=== PATIENT | female | born 1990 | race Caucasian/White ===

== ENCOUNTER 2020-03-07 15:59 | Outpatient (REF) | payer OTHER, SELFPAY | END 2020-03-07 16:00 | disposition home or self-care (01) | LOC: HO.LAB 15:59 | PROVIDERS: Visit Provider Internal Medicine | DX: Z20.828 Contact with and (suspected) exposure to other viral communicable diseases (principal) | CPT/HCPCS: C9803; U0003 ==

== ENCOUNTER 2020-04-23 13:20 | Emergency (ER) | payer OTHER, SELFPAY ==
--- NOTE | ~2020-04-23 | XR_ITS ---
EXAMINATION: XR WRIST SCAPHOID, LEFT CLINICAL INFORMATION: Fall, trauma, pain COMPARISON: Radiographs left forearm 08/08/2019 TECHNIQUE: Left wrist is imaged in 4 views, including a navicular view. FINDINGS: The lateral view demonstrates a triangular opacification 2 x 3 mm in size suspicious for a dorsal carpal avulsion fracture. The other views show no fracture or dislocation. The ulnar variance is neutral. The bony mineralization is normal. XR/XR wrist LT w scaphoid IMPRESSION: Suspect dorsal carpal avulsion fracture, 2 x 3 mm fragment suggested on lateral view dorsal wrist.
[2020-04-23 13:38] VITALS: BP 115/74; PULSE 91; RESP 14; TEMP 37.6; O2SAT 96; BMI 18.4
--- NOTE | 2020-04-23 13:55 | ED.EXTPRO ---
HPI - Extremity Problem General Chief complaint: Extremity Injury, Upper Stated complaint: FALL L WRIST INJ Time Seen by Provider: 04/23/20 13:44 Source: patient Mode of arrival: ambulatory Limitations: no limitations History of Present Illness HPI Narrative: 30 y/o female presenting with left wrist pain after she slipped and fell on wet floor while at work. She states she fell backwards and caught herself with her left hand. She had immediate pain. She reports feeling a crunching when she moves her wrist. She denies numbness or tingling. No other injuries. She did not hit her head or lose consciousness. MD Complaint: joint paint Onset (ago): hour(s) (1) Pain Consistency: constant Location: left and upper extremity Severity scale (1-10): 8 Quality: sharp Radiation: distal (to pinky finger) Relieving factors: immobilization and elevation Exacerbating factors: range of motion and palpation Associated symptoms: denies other symptoms Related Data Previous Rx's Medication Instructions Recorded ibuprofen 600 mg PO Q8H PRN #20 tab 04/23/20 Allergies Allergy/AdvReac Type Severity Reaction Status Date / Time No Known Allergies Allergy Unverified 11/30/19 18:32 [No Known Allergies*] Review of Systems Review of Systems: Constitutional: No Fever, No Chills Cardiovascular: No Chest Pain, No SOB Respiratory: No Cough, No Sputum Gastrointestinal: No Nausea, No Vomiting, No Diarrhea, No abdominal Pain Musculoskeletal: + joint pain, + Myalgias Skin: No Skin Lesions, No rash Neuro: No Weakness, No Numbness, No Dizziness, No Headache Heme/Lymph: No Bruising PMFSH Past Medical History Attestation statement: The following information was validated with the patient. Medical History Hepatitis C Social History Social History Smoking Status: Current every day smoker Smoked in Last 30 Days: Yes Use of substances other than those prescribed or required for medical reasons: Yes Substance Use Type: Marijuana Substance Use Type Other:: methadone Any prior treatment program specific to substance use: Yes (methadone) Advance Directives: No Advance Directives Information Provided: No Physical Exam Vital Signs: Vital Signs: Last Vital Signs Temp 99.7 F 04/23/20 13:38 Pulse 91 04/23/20 13:38 Resp 14 04/23/20 13:38 BP 115/74 02/09/21 13:38 Pulse Ox 96 04/23/20 13:38 Body Mass Index 18.4 Appearance: Alert. Oriented X3. No acute distress. HEENT: normal inspection CVS: Normal heart rate and rhythm. Pulses normal. Respiratory: No respiratory distress. Skin: Skin warm and dry. Normal skin color. Normal skin turgor. No rashes. Extremities: left wrist with normal inspection. lateral left wrist tenderness, distal ulnar tenderness. no palpable crepitus. NV intact distall. 2+ radial pulse. limited flexion of wrist due to pain. normal left elbow ROM. Neuro: Oriented X 3. No motor deficit. No sensory deficit. Course Course Course Narrative: 30 y/o female presenting with left wrist pain s/p fall. No obvious deformity on exam. Will get XR to further assess. Reevaluation(s) Reevaluation #1: XR showing tiny avulion fx of carpal bone - consistent with hector. Will place in velro splint and refer to ortho. patient is stable for discharge. Discharge Plan Discharge Clinical Impression: Sprain and strain of wrist, Avulsion fracture of bone Patient Disposition: Home, Self-Care Instructions: Wrist Sprain (ED) Additional Instructions: X-ray today showed a small (2mm) piece of bone in your wrist has broken off. This is due to a sprain in your wrist. Recommend wearing the wrist splint for comfort and support - anticipate 2 weeks. Take the prescribed anti-inflammatory medication as directed. Use ice and elevate several times per day. Follow up with the Orthopedic doctor. Prescriptions: New ibuprofen 600 mg tablet 600 mg PO Q8H PRN (Reason: pain) Qty: 20 RF: 0 Referrals: [facility] [Provider Group] - 2 days Dave Moseley MD [Physician] - 1 week (carpal avulsion fx, wrist sprain) Stand Alone Forms: Work/School Release Interventions: ED Discharge Assessment Last Done: 04/23/20 14:39 Discharge Date/Time: 04/23/20 14:40
== END 2020-04-23 14:40 | disposition home or self-care (01) ==
PROVIDERS: Emergency Provider Emergency Medicine Emergency Medical Services; PCP Internal Medicine
DX: S62.102A Fracture of unspecified carpal bone, left wrist, initial encounter for closed fracture (principal); S63.502A Unspecified sprain of left wrist, initial encounter; M25.532 Pain in left wrist; F17.200 Nicotine dependence, unspecified, uncomplicated; F12.90 Cannabis use, unspecified, uncomplicated; Z71.6 Tobacco abuse counseling; W01.0XXA Fall on same level from slipping, tripping and stumbling without subsequent striking against object, initial encounter; Y93.9 Activity, unspecified; Y92.9 Unspecified place or not applicable; Y99.0 Civilian activity done for income or pay
CPT/HCPCS: 29125; 73110; 99283

== ENCOUNTER 2020-12-22 19:33 | Emergency (ER) | payer OTHER, SELFPAY ==
[2020-12-22 19:37] VITALS: BP 116/82; PULSE 96; RESP 16; TEMP 36.7; O2SAT 96; BMI 23.4
[2020-12-22 20:22] LABS: Appearance Urine HAZY; Color Urine DK YELLOW; Glucose Urine UA NEG (NEG); Leukocyte Esterase Urine 1+ (NEG); Nitrite Urine POS (NEG); PH 5.5 (5.0-8.0); Specific Gravity - Urine >= 1.030 (1.005-1.025); UACC Culture Trigger YES; Urine Blood NEG (NEG); Urine Ketones NEG (NEG); Urine Protein 1+ MG/DL (NEG-TRACE)
[2020-12-22 20:24] LABS: UPreg QC Valid YES; Urine Pregnancy NEGATIVE (NEGATIVE)
[2020-12-22 20:29] LABS: Bacteria Urine 4+ /LPF; Squamous Epithelial Cell Urine 3+ /LPF
[2020-12-22 20:31] LABS: RBC Urine 0-2 /HPF (0)
[2020-12-22] MEDS: cefTRIAXone sodium 500 MG, Lidocaine HCl 1 % MPF 1 ML IM (22:29)
[2020-12-22] MEDS: Azithromycin 500 MG TABLET 1000 MG PO (22:29)
[2020-12-22] MEDS: levoFLOXacin 250 MG TABLET PO (22:30)
--- NOTE | 2020-12-22 23:31 | ED.GENADULT ---
HPI - General Adult General Chief complaint: Skin/Abscess/Foreign Body Stated complaint: ?Skin infection Time Seen by Provider: 12/22/20 20:17 Source: patient Mode of arrival: ambulatory Limitations: no limitations History of Present Illness HPI narrative: 30-year-old female with a history of IV drug use presents for small lesions to her face. Patient also endorses dysuria with back pain. Patient has had 2 weeks of dysuria with right-sided back pain and nausea. No vomiting, no fevers. Patient also says she wakes up with her eyes crusted shut and her eyes are itchy and this is been going on for 10 days. In addition, patient has had small yellow crusted lesions on her nose in her years. In addition, patient has vaginal discharge that is smelly and itchy. Related Data Previous Rx's Medication Instructions Recorded ibuprofen 600 mg tablet 600 mg PO Q8H PRN #20 tab 04/23/20 erythromycin 5 mg/gram (0.5 %) eye 1 appl OPHTHALMIC (EYE) DAILY 5 12/22/20 ointment Days #3.5 g levofloxacin 250 mg tablet 250 mg PO DAILY 3 Days #3 tab 12/22/20 metronidazole 500 mg tablet 500 mg PO BID 7 Days #14 tab 12/22/20 mupirocin 2 % topical ointment 1 appl TOPICAL BID #22 g 12/22/20 Allergies Allergy/AdvReac Type Severity Reaction Status Date / Time No Known Allergies Allergy Unverified 11/30/19 18:32 [No Known Allergies*] Review of Systems Constitutional: Constitutional: Denies body ache(s), Denies chills, Denies fatigue, Denies fever(s), Denies headache(s), Denies malaise and Denies weakness Eyes: Eyes: Denies blurry vision, Denies diplopia, Reports irritation and Reports itchy eyes ENT: Denies vertigo, Denies dizziness, Denies otalgia, Denies headache(s), Denies mouth pain, Denies post nasal drip, Denies sinus pain, Denies sinus pressure, Denies sore throat and Denies throat swelling Cardiovascular: Cardiovascular: Denies chest pain, Denies syncope, Denies leg edema, Denies lightheadedness, Denies Loss of Consciousness, Denies palpitations and Denies dyspnea Respiratory: Respiratory: Denies chest congestion, Denies cough and Denies dyspnea Gastrointestinal: Gastrointestinal: Denies abdominal pain, Denies hematochezia, Denies constipation, Denies diarrhea, Reports nausea and Denies vomiting Genitourinary: Genitourinary: Denies abnormal vaginal bleeding, Denies hematuria, Reports dysuria, Denies pelvic pain, Reports urinary urgency, Reports vaginal discharge, Reports vaginal odor and Reports vaginal pruritus Musculoskeletal: Musculoskeletal: Reports no additional musculoskeletal complaints Integumentary/Breasts: Skin/Breast: Reports lesions and Reports rash Neurologic: Denies confusion, Denies vertigo, Denies dizziness, Denies syncope, Denies headache(s) and Denies weakness Psychiatric: Psychiatric: Reports anxiety, Denies confusion and Denies depression Endocrine: Endocrine: Denies fatigue and Denies palpitations Allergic/Immunologic: Allergic/Immunologic: Reports itchy eyes and Denies throat swelling PMFSH Past Medical History Medical History Hepatitis C Scoliosis Social History Social History Substance Use Type: Marijuana Advance Directives: No Advance Directives Information Provided: No Physical Exam Vital Signs: Vital Signs: Last Vital Signs Temp 98.0 F 12/22/20 19:37 Pulse 96 12/22/20 19:37 Resp 16 12/22/20 19:37 BP 116/82 12/22/20 19:37 Pulse Ox 96 12/22/20 19:37 Body Mass Index 23.4 Const: General: alert, awake and poor hygiene; No confusion Nutritional Appearance: thin Orientation/consciousness: patient oriented x3 and No confusion Limitations: no limitations HENMT: Head: Yes normal to inspection, Yes normocephalic and Yes atraumatic Ears: hearing grossly normal bilaterally, external ears normal, TM's normal bilaterally and EAC's normal General nose exam: Normal external nose present Face and sinus: Yes normal facial exam and Yes sinuses nontender Mouth: Normal oral and palatal mucosa present Throat: Yes posterior oropharynx normal Eyes: Conjunctivae: conjunctival abnormal bilateral conjunctival injection and diffuse Pupils: Equal, round and reactive pupils present EOM: EOMs intact bilaterally Neck: Neck: Yes full ROM, Yes no lymphadenopathy and Yes supple Resp: Effort & Inspection: normal respiratory effort and able to speak in complete sentences Auscultation: clear to auscultation bilaterally, no crackles, no rales, no rhonchi and no wheezes Cardio: Rate: regular rate Rhythm: regular rhythm Heart sounds: S1 normal heart sound present and S2 normal heart sound present GI: Inspection: Yes normal to inspection Palpation (GI): Soft to palpation, Tenderness to palpation present (GI) other (suprapubic), no guarding and not rigid Percussion: Yes normal to percussion Auscultation: normal bowel sounds : Speculum Exam - Vagina: No vaginal bleeding Speculum Exam - Cervix: Abnormal cervical discharge present yellow and malodorous OB/external & speculum: No vaginal bleeding Skin: General skin exam: crusts Neuro: General: patient oriented x3 and No confusion Cranial nerves: Yes Equal, round and reactive pupils present Extrem: General: Yes normal to inspection and Yes full ROM Psych: Appearance: grossly normal Affect: normal affect Attitude: cooperative Thought process: Normal thought process present Course Course Course Narrative: 22-year-old female with multiple complaints is found to have impetigo on her face, conjunctivitis in her eyes, UTI, and has malodorous yellow esquivel vaginal discharge. Patient tested negative for Trichomonas and yeast. Will treat UTI and will treat for bacterial vaginosis with Flagyl, as this is the clinical diagnosis. Give ceftriaxone and 1 g of azithromycin here for gonorrhea and chlamydia. Did not prescribe doxycycline due to concern of patient being noncompliant. Mupirocin for impetigo on her face, erythromycin ointment for conjunctivitis. Medical Decision Making Lab Data Labs: Lab Results 12/22/20 12/22/20 Range/Units 20:16 20:16 Urine Color DK YELLOW Urine Appearance HAZY Urine pH 5.5 (5.0-8.0) Ur Specific [place] >= 1.030 H (1.005-1.025) Urine Protein 1+ H (NEG-TRACE) MG/DL Urine Glucose (UA) NEG (NEG) MG/DL Urine Ketones NEG (NEG) MG/DL Urine Blood NEG (NEG) Urine Nitrite POS H (NEG) Ur Leukocyte Esterase 1+ H (NEG) Urine RBC 0-2 (0) /HPF Urine WBC 10-14 H (0-4) /HPF Ur Squamous Epith Cells 3+ /LPF Urine Bacteria 4+ /LPF Urine Test NEGATIVE (NEGATIVE) Discharge Plan Discharge Clinical Impression: Impetigo, Bacterial vaginitis UTI (urinary tract infection) Qualifiers: Urinary tract infection type: acute cystitis Hematuria presence: without hematuria Qualified Code(s): N30.00 - Acute cystitis without hematuria Conjunctivitis Qualifiers: Conjunctivitis type: acute Acute conjunctivitis type: bacterial Laterality: bilateral Qualified Code(s): H10.33 - Unspecified acute conjunctivitis, bilateral Patient Disposition: Home, Self-Care Instructions: Bacterial Vaginosis (ED), Urinary Tract Infection in Women (ED), Impetigo (ED), Conjunctivitis (ED) Additional Instructions: Fill the prescription for levofloxacin and metronidazole at your pharmacy tomorrow. You had 1 dose of levofloxacin today. That medicine is for urinary tract infection. I am also sending a prescription for metronidazole because I suspect you have bacterial vaginosis. This will also treat Trichomonas. Please take this for 7 days. You have been treated here for gonorrhea and chlamydia and do not need any more treatment for that. We will call you with results if they are positive. If you do not hear from us in 3 days he may call the hospital. Please use the mupirocin on your face. You may also take a little bit and put it up your nose. Please use the erythromycin ointment in your eyes. Call your primary care provider for follow-up appointment. Prescriptions: New erythromycin 5 mg/gram (0.5 %) ointment 1 appl ophthalmic (eye) DAILY 5 Days Qty: 3.5 RF: 0 metronidazole 500 mg tablet 500 mg PO BID 7 Days Qty: 14 RF: 0 levofloxacin 250 mg tablet 250 mg PO DAILY 3 Days Qty: 3 RF: 0 mupirocin 2 % ointment 1 appl topical BID Qty: 22 RF: 0 No Action ibuprofen 600 mg tablet 600 mg PO Q8H PRN (Reason: pain) Qty: 20 RF: 0
[2020-12-23 00:44] LABS: CT PCR NOT DETECTED (Not Detect.); NG PCR NOT DETECTED (Not Detect.)
[2020-12-23 12:30] LABS: BV Int Neg Control Negative (Negative); BV Int Pos Control Positive (Positive)
== END 2020-12-22 23:32 | disposition home or self-care (01) ==
PROVIDERS: Physician Assistant; Emergency Provider Internal Medicine; PCP Internal Medicine
DX: N30.00 Acute cystitis without hematuria (principal); N76.0 Acute vaginitis; B96.89 Other specified bacterial agents as the cause of diseases classified elsewhere; L01.00 Impetigo, unspecified; H10.33 Unspecified acute conjunctivitis, bilateral
CPT/HCPCS: 81001; 81025; 87086; 87088; 87186; 87480; 87491; 87510; 87591; 87660; 96372; 99283; J0696

== ENCOUNTER 2021-09-01 11:06 | Outpatient (REF) | payer OTHER, SELFPAY ==
[2021-09-01 14:00] LABS: Hematocrit 40.4 % (37.0-47.0); Mean Corpuscular HGB Conc 32.2 g/dl (31.0-35.0); Mean Corpuscular Hemoglobin 28.9 pg (27.0-33.0); Mean Corpuscular Volume 89.8 fL (80.0-98.0); Mean Platelet Volume 10.3 fL (9.4-12.3); Platelet Count 149 X10*3/uL (160-400); White Blood Count 5.2 X10*3/uL (4.8-10.8)
[2021-09-01 14:21] LABS: Alanine Aminotransferase 51 U/L (0-31); Albumin Level 3.9 g/dL (3.5-5.0); Alkaline Phosphatase 140 U/L (39-117); Anion Gap 14 (12-20); Aspartate Amino Transferase 79 U/L (5-31); Bilirubin Direct 0.3 mg/dL (0.0-0.5); Bilirubin Total 0.6 mg/dL (0.0-1.0); Blood Urea Nitrogen 8 mg/dL (9-16); Calcium 9.4 mg/dL (8.4-10.2); Carbon Dioxide 24 mmol/L (22-29); Chloride 104 mmol/L (96-108); Estimated Glomerular Filt Rate > 60; Glucose Random 92 mg/dL (60-115); Potassium 4.4 mmol/L (3.3-5.1); Sodium 138 mmol/L (135-145); Total Protein 10.1 g/dL (6.5-8.0)
[2021-09-02 04:44] LABS: HIV AB/AG Nonreactive (Nonreactive); HIV Num 1 0.07 S/CO (0.00-0.99)
== END 2021-09-01 11:07 | disposition home or self-care (01) ==
LOC: HO.HMGCLDS 11:06
PROVIDERS: Visit Provider Internal Medicine
DX: Z11.4 Encounter for screening for human immunodeficiency virus [HIV] (principal); B25.9 Cytomegaloviral disease, unspecified; G43.909 Migraine, unspecified, not intractable, without status migrainosus
CPT/HCPCS: 36415; 80048; 80076; 85027; 87389

== ENCOUNTER 2022-04-11 11:05 | Emergency (ER) | payer OTHER, SELFPAY ==
[2022-04-11 11:19] VITALS: BP 182/98; PULSE 99; RESP 20; TEMP 36.3; O2SAT 100; BMI 18.2
--- NOTE | 2022-04-11 11:19 | ED.GENADULT ---
HPI - General Adult General Chief complaint: Skin/Abscess/Foreign Body <LUIS Pereira - Last Filed: 04/11/22 11:23> Stated complaint: infection in L hand <LUIS Pereira - Last Filed: 04/11/22 11:23> Time Seen by Provider: 04/11/22 12:09 <LUIS Pereira - Last Filed: 04/11/22 11:23> Source: patient <Heavenly Roa BECKY Machuca - Last Filed: 04/11/22 13:40> Mode of arrival: ambulatory <Heavenly Machuca CNP - Last Filed: 04/11/22 13:40> Limitations: no limitations <Heavenly Machuca CNP - Last Filed: 04/11/22 13:40> History of Present Illness HPI narrative: Patient is a 32-year-old female who presents emergency department for evaluation of left hand/wrist pain, redness, swelling. She states that she noticed the redness developed yesterday. She does report injecting IV heroin into this area. She is currently on methadone, she is not interested in detox at this time. Denies fevers, chills, wrist stiffness, decreased range of motion, chest pain, shortness of breath, difficulty breathing. Denies history of MRSA infection. <Heavenly Machuca CNP - Last Filed: 04/11/22 13:40> Related Data Home medications: Previous Rx's Medication Instructions Recorded ibuprofen 600 mg tablet 600 mg PO Q8H PRN pain #20 tabs 04/23/20 erythromycin 5 mg/gram (0.5 %) eye 1 appl ophthalmic (eye) DAILY 5 12/22/20 ointment days #3.5 grams levofloxacin 250 mg tablet 250 mg PO DAILY 3 days #3 tabs 12/22/20 metronidazole 500 mg tablet 500 mg PO BID 7 days #14 tabs 12/22/20 mupirocin 2 % topical ointment 1 appl topical BID #22 grams 12/22/20 meloxicam 15 mg tablet 15 mg PO DAILY #14 tabs 09/01/21 cephalexin 500 mg capsule 500 mg PO QID 7 days #28 caps 04/11/22 doxycycline hyclate 100 mg tablet 100 mg PO BID 7 days #14 tabs 04/11/22 <LUIS Pereira - Last Filed: 04/11/22 11:23> Allergies/adverse reactions: Allergies Allergy/AdvReac Type Severity Reaction Status Date / Time No Known Allergies Allergy Verified 09/01/21 10:43 [No Known Allergies*] <LUIS Pereira - Last Filed: 04/11/22 11:23> Review of Systems Review of Systems: Skin: As noted in HPI <Heavenly Machuca CNP - Last Filed: 04/11/22 13:40> Yes all other systems are reviewed and are negative <Heavenly Machuca CNP - Last Filed: 04/11/22 13:40> PMFSH Past Medical History Attestation statement: The following information was validated with the patient. <Heavenly Machuca CNP - Last Filed: 04/11/22 13:40> Source: old records reviewed <Heavenly Machuca CNP - Last Filed: 04/11/22 13:40> Medical History: Medical History Hepatitis C Scoliosis <LUIS Pereira - Last Filed: 04/11/22 11:23> Social History Social History: Social History Patient Tobacco Use Status: Current everyday Tobacco user Substance Use Type: Marijuana Advance Directives: No <LUIS Pereira - Last Filed: 04/11/22 11:23> Physical Exam ED Vital Signs: Vital Signs - 24 hr 04/11/22 11:19 04/11/22 13:23 Temperature 97.3 F 97.9 F Pulse Rate 99 89 Respiratory Rate 20 16 Blood Pressure 182/98 H 147/83 H Pulse Oximetry 100 99 Oxygen Delivery Method Room Air Room Air BMI result Body Mass Index 18.2 <LUIS Pereira - Last Filed: 04/11/22 11:23> Vital Signs - 24 hr 04/11/22 11:19 04/11/22 13:23 Temperature 97.3 F 97.9 F Pulse Rate 99 89 Respiratory Rate 20 16 Blood Pressure 182/98 H 147/83 H Pulse Oximetry 100 99 Oxygen Delivery Method Room Air Room Air BMI result Body Mass Index 18.2 <Heavenly Machuca CNP - Last Filed: 04/11/22 13:40> Appearance: Alert.?Oriented to person, place and time. No acute distress.?Normal affect. Eyes: Pupils equal, round and reactive to light.? ENT: Pharynx normal.?? Neck: Normal inspection.? Neck supple.?? CVS: Heart sounds normal. Normal heart rate and rhythm.? Pulses normal.?? Respiratory: No respiratory distress.? Lung sounds clear to auscultation bilaterally?? Abdomen: Soft and non-tender. Skin: Skin warm and dry.? Normal skin color.? Left dorsal hand/wrist with reported injection sites surrounding erythema, localized swelling, no warmth. Full AROM to digits and left wrist. Palpable 2+ radial pulse bilaterally. Extremities: No lower extremity edema.? Neuro: Moves all extremities spontaneously. Sensation intact bilaterally. Ambulates with normal steady gait. <Heavenly Machuca CNP - Last Filed: 04/11/22 13:40> Course Course Course Narrative: RME performed by Laurence Ly PA-C. Patient is a 32 year old female presenting to the emergency department with an infection to the left hand. Patient has a history of IV drug use. Patient states that she last used a week ago and is currently on methadone. Patient states that she also got scratched by a cat on the left hand. Patient states that the cat is up to date on all shots. Labs ordered. Patient placed back in the waiting room pending results and room availability. <LUIS Pereira - Last Filed: 04/11/22 11:23> Medical Decision Making Medical Decision Making MDM Narrative: Patient is a 32-year-old female who presents emergency department for evaluation of pain in the erythema to the dorsal left wrist/hand. Recently injected IV heroin into this area. Reports a history of cellulitis in the past which has presented similarly. Denies any history of MRSA infection. Overall she is well-appearing, nontoxic, afebrile. Full range of motion is present to the wrist/digits, low suspicion for septic arthritis at this time. Clinically no abscess present. Reviewed labs obtained from RME, no leukocytosis, CMP overall unremarkable, mildly elevated inflammatory markers. At this time discussed plan of care for discharge home, treatment with oral antibiotics for cellulitis. Provided with strict return precautions, reviewed worrisome signs symptoms that warrant tucker. Patient to follow-up with primary care provider. All questions answered. Stable for discharge. <Heavenly Roa BECKY Machuca - Last Filed: 04/11/22 13:40> Differential Diagnosis Differential Diagnoses: The differential diagnosis associated with the presentation includes (As noted above) <Heavenly PaulBECKY hunter - Last Filed: 04/11/22 13:40> Lab Data MDM Lab Attestation statement: I reviewed the patient's lab results. <Heavenlylinda Machuca CNP - Last Filed: 04/11/22 13:40> Result Diagrams: 04/11/22 11:35 04/11/22 11:35 <LUIS Pereira - Last Filed: 04/11/22 11:23> Labs: Lab Results 04/11/22 04/11/22 04/11/22 Range/Units 11:35 11:35 11:35 WBC 6.4 (4.8-10.8) X10*3/uL RBC 4.12 L (4.20-5.50) X10*6/uL Hgb 11.8 L (12.0-16.0) g/dl Hct 36.9 L (37.0-47.0) % MCV 89.6 (80.0-98.0) fL MCH 28.6 (27.0-33.0) pg MCHC 32.0 (31.0-35.0) g/dl RDW 13.9 (11.0-16.0) % Plt Count 234 D (160-400) X10*3/uL MPV 8.1 L (9.4-12.3) fL Immature Gran % (Auto) 0.2 (0.0-0.4) % Neut % (Auto) 38.4 L (45-73) % Lymph % (Auto) 52.2 H (20-40) % Evans % (Auto) 8.9 (2-11) % Eos % (Auto) 0.0 (0-4) % Baso % (Auto) 0.3 (0-2) % Lymph # (Auto) 3.3 (1.2-4.9) X10*3/uL Evans # (Auto) 0.6 (0.1-1.2) X10*3/uL Eos # (Auto) 0.0 (0.0-0.4) X10*3/uL Baso # (Auto) 0.0 (0.0-0.2) X10*3/uL Abs Immat Gran (auto) 0.01 (0.00-0.03) X10*3/uL Absolute Neuts (auto) 2.5 (2.0-8.3) x10*3/uL Absolute Nucleated RBC 0.000 (0.0-0.012) X10*3/uL Nucleated RBC % (auto) 0.0 (0.0-0.2) /100WBC ESR 60 H (0-20) MM/HR Sodium 137 (135-145) mmol/L Potassium 3.6 (3.3-5.1) mmol/L Chloride 101 (96-108) mmol/L Carbon Dioxide 24 (22-29) mmol/L Anion Gap 16 (12-20) BUN 8 L (9-16) mg/dL Creatinine 0.81 (0.5-1.4) mg/dL Estim Creat Clear Calc 87.2 Estimated GFR > 60 Random Glucose 103 (60-115) mg/dL Calcium 9.3 (8.4-10.2) mg/dL Magnesium 2.0 (1.6-2.6) mg/dL Total Bilirubin 0.3 (0.0-1.0) mg/dL AST 100 H (5-31) U/L ALT 77 H (0-31) U/L Alkaline Phosphatase 136 H (39-117) U/L C-Reactive Protein 0.70 H (< or = 0.50) mg/dL Total Protein 9.1 H (6.5-8.0) g/dL Albumin 4.0 (3.5-5.0) g/dL <LUIS Pereira - Last Filed: 04/11/22 11:23> Lab Results 04/11/22 04/11/22 04/11/22 Range/Units 11:35 11:35 11:35 WBC 6.4 (4.8-10.8) X10*3/uL RBC 4.12 L (4.20-5.50) X10*6/uL Hgb 11.8 L (12.0-16.0) g/dl Hct 36.9 L (37.0-47.0) % MCV 89.6 (80.0-98.0) fL MCH 28.6 (27.0-33.0) pg MCHC 32.0 (31.0-35.0) g/dl RDW 13.9 (11.0-16.0) % Plt Count 234 D (160-400) X10*3/uL MPV 8.1 L (9.4-12.3) fL Immature Gran % (Auto) 0.2 (0.0-0.4) % Neut % (Auto) 38.4 L (45-73) % Lymph % (Auto) 52.2 H (20-40) % Evans % (Auto) 8.9 (2-11) % Eos % (Auto) 0.0 (0-4) % Baso % (Auto) 0.3 (0-2) % Lymph # (Auto) 3.3 (1.2-4.9) X10*3/uL Evans # (Auto) 0.6 (0.1-1.2) X10*3/uL Eos # (Auto) 0.0 (0.0-0.4) X10*3/uL Baso # (Auto) 0.0 (0.0-0.2) X10*3/uL Abs Immat Gran (auto) 0.01 (0.00-0.03) X10*3/uL Absolute Neuts (auto) 2.5 (2.0-8.3) x10*3/uL Absolute Nucleated RBC 0.000 (0.0-0.012) X10*3/uL Nucleated RBC % (auto) 0.0 (0.0-0.2) /100WBC ESR 60 H (0-20) MM/HR Sodium 137 (135-145) mmol/L Potassium 3.6 (3.3-5.1) mmol/L Chloride 101 (96-108) mmol/L Carbon Dioxide 24 (22-29) mmol/L Anion Gap 16 (12-20) BUN 8 L (9-16) mg/dL Creatinine 0.81 (0.5-1.4) mg/dL Estim Creat Clear Calc 87.2 Estimated GFR > 60 Random Glucose 103 (60-115) mg/dL Calcium 9.3 (8.4-10.2) mg/dL Magnesium 2.0 (1.6-2.6) mg/dL Total Bilirubin 0.3 (0.0-1.0) mg/dL AST 100 H (5-31) U/L ALT 77 H (0-31) U/L Alkaline Phosphatase 136 H (39-117) U/L C-Reactive Protein 0.70 H (< or = 0.50) mg/dL Total Protein 9.1 H (6.5-8.0) g/dL Albumin 4.0 (3.5-5.0) g/dL <Heavenly Machuca CNP - Last Filed: 04/11/22 13:40> Prescription Management I considered prescription management with: Pain Medication and Antibiotic <Heavenly Machuca CNP - Last Filed: 04/11/22 13:40> Discharge Plan Discharge Clinical Impression: Cellulitis <LUIS Pereira - Last Filed: 04/11/22 11:23> Patient Disposition: Home, Self-Care <LUIS Pereira - Last Filed: 04/11/22 11:23> Instructions: Cellulitis (ED) <LUIS Pereira - Last Filed: 04/11/22 11:23> Additional Instructions: Please complete the entire course of antibiotics sent to your pharmacy. You can take ibuprofen 200 mg, 3 tablets (600mg) every 6-8 hours as needed for pain, in addition to Tylenol 500 mg, 2 tablets (1,000mg) every 4-6 hours as needed for pain, but not to exceed 3 doses daily (3,000mg).? As we discussed, if you develop worsening redness, swelling, pain, fevers, chills, inability to move the hand/wrist despite being on the antibiotics this should be re-evaluated. If you develop chest pain, shortness of breath, difficulty breathing, confusion, you should be evaluated in the emergency department Follow-up with your primary care provider <LUIS Pereira - Last Filed: 04/11/22 11:23> Prescriptions: New cephalexin 500 mg capsule 500 mg PO QID 7 Days Qty: 28 0RF doxycycline hyclate 100 mg tablet 100 mg PO BID 7 Days Qty: 14 0RF No Action ibuprofen 600 mg tablet 600 mg PO Q8H PRN (Reason: pain) Qty: 20 0RF erythromycin 5 mg/gram (0.5 %) ointment 1 appl ophthalmic (eye) DAILY 5 Days Qty: 3.5 0RF Rx Instructions: Apply 1/2 inch strip to both eyes 4 times a day for 5 days metronidazole 500 mg tablet 500 mg PO BID 7 Days Qty: 14 0RF levofloxacin 250 mg tablet 250 mg PO DAILY 3 Days Qty: 3 0RF mupirocin 2 % ointment 1 appl topical BID Qty: 22 0RF meloxicam 15 mg tablet 15 mg PO DAILY Qty: 14 0RF <LUIS Pereira - Last Filed: 04/11/22 11:23> Referrals: Physician,Unknown J [Primary Care Provider] - <LUIS Pereira - Last Filed: 04/11/22 11:23>
[2022-04-11 11:39] LABS: MANUAL DIFF FLAG NO
[2022-04-11 11:45] LABS: Basophils Percent Auto 0.3 % (0-2); Hematocrit 36.9 % (37.0-47.0); Hemoglobin 11.8 g/dl (12.0-16.0); Imm Gran Abs Auto 0.01 X10*3/uL (0.00-0.03); Imm Gran Pct Auto 0.2 % (0.0-0.4); Lymphocytes Absolute Auto 3.3 X10*3/uL (1.2-4.9); Lymphocytes Percent Auto 52.2 % (20-40); Mean Corpuscular Hemoglobin 28.6 pg (27.0-33.0); Mean Corpuscular Volume 89.6 fL (80.0-98.0); Mean Platelet Volume 8.1 fL (9.4-12.3); Monocytes Absolute Auto 0.6 X10*3/uL (0.1-1.2); Monocytes Percent Auto 8.9 % (2-11); Neutrophils Absolute Auto 2.5 x10*3/uL (2.0-8.3); Neutrophils Percent Auto 38.4 % (45-73); Platelet Count 234 X10*3/uL (160-400); Red Blood Count 4.12 X10*6/uL (4.20-5.50); Red Cell Distribution Width 13.9 % (11.0-16.0); White Blood Count 6.4 X10*3/uL (4.8-10.8)
[2022-04-11 12:26] LABS: Erythrocyte Sedimentation Rate 60 MM/HR (0-20)
[2022-04-11 12:52] LABS: Alanine Aminotransferase 77 U/L (0-31); Alkaline Phosphatase 136 U/L (39-117); Anion Gap 16 (12-20); Aspartate Amino Transferase 100 U/L (5-31); Bilirubin Total 0.3 mg/dL (0.0-1.0); Blood Urea Nitrogen 8 mg/dL (9-16); Calcium 9.3 mg/dL (8.4-10.2); Carbon Dioxide 24 mmol/L (22-29); Chloride 101 mmol/L (96-108); Creatinine Clr Calc Pharmacy 87.2; Estimated Glomerular Filt Rate > 60; Glucose Random 103 mg/dL (60-115); Potassium 3.6 mmol/L (3.3-5.1); Sodium 137 mmol/L (135-145); Total Protein 9.1 g/dL (6.5-8.0)
[2022-04-11 13:23] VITALS: BP 147/83; PULSE 89; RESP 16; TEMP 36.6; O2SAT 99
== END 2022-04-11 13:48 | disposition home or self-care (01) ==
PROVIDERS: Physician Assistant Medical; Emergency Provider Emergency Medicine
DX: L03.114 Cellulitis of left upper limb (principal); F11.20 Opioid dependence, uncomplicated
CPT/HCPCS: 36415; 80053; 83735; 85025; 85652; 86140; 99282; 99283

== ENCOUNTER 2023-01-04 03:22 | Emergency (ER) | payer OTHER, SELFPAY ==
--- NOTE | ~2023-01-04 | CT_ITS ---
CT LUMBAR SPINE WITH IV CONTRAST CLINICAL INFORMATION: R/O lumbar spine abscess, IVDU COMPARISON: None available. TECHNIQUE: Multidetector CT acquisition of the lumbar spine obtained following the administration of 85 mL of Omnipaque 350 intravenous contrast without complication. This CT examination was performed using dose optimization techniques as appropriate, variously including the following: *Automated exposure control *Adjustment of mA and/or kV according to patient size (this includes techniques or standardized protocols for targeted exams where dose is matched to indication/reason for exam; i.e. extremities or head) *Use of iterative reconstruction technique FINDINGS: Lumbar alignment is normal. The vertebral body heights are maintained. The disc volumes are preserved. There are no bony erosions. No peripherally enhancing fluid collections. No definite epidural collections within the lumbar spine. No significant lumbar disc herniations. No appreciable central canal stenosis nor foraminal stenosis within the lumbar spine. Partially imaged intra-abdominal ascites. CT/CT lumbar spine w IV con IMPRESSION: - No CT evidence of spinal infection. No definite epidural collections. MRI would be much more sensitive in assessment if not contraindicated. - Partially imaged intra-abdominal ascites.
--- NOTE | ~2023-01-04 | XR_ITS ---
EXAMINATION: XR CHEST CLINICAL INFORMATION: Fever COMPARISON: None available. TECHNIQUE: AP upright portable view of the chest was obtained. 8:30 AM FINDINGS: The lungs are well expanded. No focal consolidation, interstitial pulmonary edema or pneumothorax. No significant abnormality is noted involving the heart, mediastinum, bony thorax or soft tissues. XR/XR chest 1V IMPRESSION: No acute cardiopulmonary disease.
[2023-01-04 03:29] VITALS: BP 106/84; PULSE 114; RESP 16; TEMP 36.8; O2SAT 98; BMI 17.7
[2023-01-04 04:28] VITALS: BP 91/63; PULSE 102; RESP 22; TEMP 37.6; O2SAT 99
--- NOTE | 2023-01-04 04:41 | PC.NURSE ---
this rn assumed care of pt from waiting room at 0428. pt admits to using heroin ad cocaine prior to arrival. pt mother ad boyfriend at bedside. pt changed into hospital gown and belongings secured by security. pt belongings in per security. per security pt family members allowed to remain at bedside as pt chief complaint is backpain. cupola charger made aware
[2023-01-04 06:09] LABS: Hematocrit 30.1 % (37.0-47.0); Hemoglobin 10.1 g/dl (12.0-16.0); Imm Gran Abs Auto 0.01 X10*3/uL (0.00-0.03); Imm Gran Pct Auto 0.3 % (0.0-0.4); Lymphocytes Absolute Auto 0.4 X10*3/uL (1.2-4.9); MANUAL DIFF FLAG NO; Mean Corpuscular HGB Conc 33.6 g/dl (31.0-35.0); Mean Corpuscular Hemoglobin 29.5 pg (27.0-33.0); Mean Platelet Volume 8.2 fL (9.4-12.3); Monocytes Percent Auto 1.1 % (2-11); Neutrophils Absolute Auto 3.2 x10*3/uL (2.0-8.3); Neutrophils Percent Auto 86.6 % (45-73); Platelet Count 178 X10*3/uL (160-400); Red Blood Count 3.42 X10*6/uL (4.20-5.50); Red Cell Distribution Width 13.7 % (11.0-16.0); White Blood Count 3.7 X10*3/uL (4.8-10.8)
[2023-01-04] MEDS: 0.9 % Sodium Chloride 1,000 ML 999 ML IVCONT ×2 (06:09)
[2023-01-04] MEDS: Ketorolac Tromethamine 30 MG/ML VIAL IVPUSH (06:13)
[2023-01-04 06:15] LABS: INTERNATIONAL NORM RATIO 0.9 (0.9-1.1); Prothrombin Time 11.2 SEC (11.1-13.3)
[2023-01-04 06:18] LABS: Lactic Acid 1.8 mmol/L (0.5-2.0)
--- NOTE | 2023-01-04 06:30 | PC.NURSE ---
dr fairchild notified this rn pt needs to be moved to bed in main ed. this rn moved pt to ed bed 15. pt placed on cardiac and spo2 monitors. this rn, and three additional rn attempted blood draw and iv placement. 20g iv placed in r hand. pt tearful. family at bedside. blood work sent down to lab. unable to obtain second set of blood cultures. this rn made chargemaster analyst primary rn ad dr fairchild aware pt medicated according to mar
--- NOTE | 2023-01-04 06:45 | PC.NURSE ---
phlebotomy called as unable to obtain 2nd set of blood cultures after multiple attempts by multiple RNs. iv established in R. hand by another RN; ivf infusing at this time.
[2023-01-04 06:47] LABS: Alanine Aminotransferase 47 U/L (0-31); Albumin Level 3.2 g/dL (3.5-5.0); Alkaline Phosphatase 138 U/L (39-117); Anion Gap 12 (12-20); Aspartate Amino Transferase 71 U/L (5-31); Bilirubin Direct 0.6 mg/dL (0.0-0.5); Blood Urea Nitrogen 10 mg/dL (9-16); C Reactive Protein 0.39 mg/dL (< or = 0.50); Calcium 8.5 mg/dL (8.4-10.2); Carbon Dioxide 23 mmol/L (22-29); Chloride 102 mmol/L (96-108); Creatinine Clr Calc Pharmacy 86.4; Estimated Glomerular Filt Rate > 60; Ethanol < 10 mg/dL; Glucose Random 101 mg/dL (60-115); HCG Quantitative < 2 mIU/mL; Potassium 3.2 mmol/L (3.3-5.1); Sodium 134 mmol/L (135-145); Total Protein 7.1 g/dL (6.5-8.0)
[2023-01-04 07:02] LABS: Erythrocyte Sedimentation Rate 23 MM/HR (0-20)
--- NOTE | 2023-01-04 07:21 | ED.BACK ---
HPI - Back Pain/Injury General Chief Complaint: Back Pain/Injury Stated Complaint: lower back pain Time Seen by Provider: 01/04/23 05:02 Source: patient Mode of arrival: EMS Limitations: no limitations History of Present Illness HPI Narrative: Patient comes to the emergency room complaining of lower back pain. According to the patient, it has been couple of days when the pain started, gradually the pain has gotten worse. Patient states that sometimes the pain radiates towards the left lower extremity. Patient denies chills, no fever. Patient denies any recent trauma, no heavy lifting. Patient states that to touch, she has significant pain in the lumbar spine. Patient denies any urinary/fecal incontinence/retention. No lower extremity weakness other than pain radiation Related Data Home Medications Medication Instructions Recorded Confirmed methadone 10 mg/mL oral 50 mg PO DAILY 01/04/23 01/04/23 concentrate (Methadone Intensol) Previous Rx's Medication Instructions Recorded ibuprofen 600 mg tablet 600 mg PO Q8H PRN pain #20 tabs 04/23/20 erythromycin 5 mg/gram (0.5 %) eye 1 appl ophthalmic (eye) DAILY 5 12/22/20 ointment days #3.5 grams levofloxacin 250 mg tablet 250 mg PO DAILY 3 days #3 tabs 12/22/20 metronidazole 500 mg tablet 500 mg PO BID 7 days #14 tabs 12/22/20 mupirocin 2 % topical ointment 1 appl topical BID #22 grams 12/22/20 meloxicam 15 mg tablet 15 mg PO DAILY #14 tabs 09/01/21 cephalexin 500 mg capsule 500 mg PO QID 7 days #28 caps 04/11/22 doxycycline hyclate 100 mg tablet 100 mg PO BID 7 days #14 tabs 04/11/22 cephalexin 500 mg capsule 500 mg PO Q6H 7 days #28 caps 01/04/23 Allergies Allergy/AdvReac Type Severity Reaction Status Date / Time No Known Allergies Allergy Verified 09/01/21 10:43 [No Known Allergies*] Review of Systems Review of Systems: Constitutional : No Weight loss, No Fever, No Chills, No Night Sweats, No Fatigue, No Malaise ENT/Mouth : No Hearing loss, No Ear Pain, No Nasal Congestion, No Sinus Pain, No Hoarseness, No sore throat, No Rhinorrhea, No Swallowing Difficulty Eyes: No Eye Pain, No Swelling, No Redness, No Foreign Body, No Discharge, No Vision Changes Cardiovascular : No Chest Pain, No SOB, No Dyspnea on Exertion, No Orthopnea, No Edema, No Palpitations Respiratory : No Cough, No Sputum, No Wheezing, No Smoke Exposure, No Dyspnea Gastrointestinal : No Nausea, No Vomiting, No Diarrhea, No Constipation, No abdominal Pain, No Hematochezia, No Melena Genitourinary : no irregular bleeding, No Dysuria, No Urinary Frequency, No Hematuria, No Urinary Incontinence, No Urgency, No Flank Pain, No Urinary Flow Changes, No Hesitancy Musculoskeletal : Complaining of localized lower back pain with intermittent radiation towards the left leg:, No Myalgias, No Joint Swelling Skin : No Skin Lesions, No rash Neuro : No Weakness, No Numbness, No Paresthesias, No Loss of Consciousness, No Dizziness, No Headache Psych : No Anxiety/Panic, No Depression, No SI/HI/AH/VH, No Social Issues, Heme/Lymph: No Bruising, No Bleeding,No Lymphadenopathy Endocrine : No Polyuria, No Polydipsia, No Temperature Intolerance [facility] Past Medical History Medical History Scoliosis Hepatitis C Social History Social History Patient Tobacco Use Status: Current everyday Tobacco user Smoked in Last 30 Days: Yes Use of substances other than those prescribed or required for medical reasons: Yes Substance Use Type: Crack/Cocaine, Heroin and Marijuana Advance Directives: No Advance Directives Information Provided: No Patient : No Physical Exam Vital Signs: Vital Signs: Last Vital Signs Temp 98.1 F 01/04/23 10:39 Pulse 84 01/04/23 10:39 Resp 14 01/04/23 10:39 BP 101/52 L 01/04/23 10:39 Pulse Ox 99 01/04/23 10:39 O2 Del Method Room Air 01/04/23 10:39 BMI result Body Mass Index 17.7 Const: Other: Appearance: Alert. Oriented X3. Seems uncomfortable Eyes: Pupils equal, round and reactive to light. ENT: Pharynx normal. Neck: Normal inspection. Neck supple. No lymph nodes noted. No crepitus CVS: Normal heart rate and rhythm. Pulses normal. Normal S1 and S2 Respiratory: No respiratory distress. Breath sounds normal. No Wheezing. No rales Abdomen: Soft and nontender. No rigidity. No distention. Back: Pain to palpation over the lumbar spine area. Negative straight leg raise test bilaterally Skin: Skin warm and dry. Normal skin color. Normal skin turgor. Extremities: No lower extremity edema. No Lacerations. No Rash Neuro: Oriented X 3. No motor deficit. No sensory deficit. Moving all extremities. No slurred speech. CN 2 through 12 grossly intact Psych: calm, cooperative, normal affect Course Course Course Narrative: -all of patient's labs pending -patient has history of IV drug use, we will go ahead and order a CT scan with IV contrast to rule out epidural abscess -patient received IV fluids, ketorolac for pain management. Reevaluation(s) Reevaluation #1: No real elevation of sed rate, CT of lumbar spine with IV contrast shows no epidural abscess, there is a UTI Time: 11:54 Medications Administered Generic Name Dose Route Start Last Admin Trade Name Freq PRN Reason Stop Dose Admin Methadone HCl 50 mg 01/04/23 11:00 01/04/23 11:03 Methadone Hcl 20 Mg/2 Ml Oral.Conc PO 50 mg DAILY NITESH Administration Discontinued Medications Generic Name Dose Route Start Last Admin Trade Name Freq PRN Reason Stop Dose Admin Sodium Chloride 1,000 mls @ 999 mls/hr 01/04/23 05:09 01/04/23 07:34 Ns IVCONT 01/04/23 06:09 Infused .Q1H1M ONE Infusion Sodium Chloride 1,000 mls @ 999 mls/hr 01/04/23 05:14 01/04/23 09:03 Ns IVCONT 01/04/23 06:14 Infused .Q1H1M ONE Infusion Iohexol 100 ml 01/04/23 08:26 01/04/23 08:27 Iohexol 350 Mg/Ml 100 Ml Infus..Btl IV 01/04/23 08:27 85 ml ONCE ONE Administration Ketorolac Tromethamine 30 mg 01/04/23 05:14 01/04/23 06:13 Ketorolac Tromethamine 30 Mg/Ml Vial IVPUSH 01/04/23 05:15 30 mg ONCE ONE Administration Potassium Chloride 20 meq 01/04/23 07:53 01/04/23 09:03 Potassium Chloride Er 20 Meq Tab.Er.Prt PO 01/04/23 07:54 20 meq ONCE ONE Administration Medical Decision Making Medical Decision Making [facility] Narrative: -my interpretation of labs: Hematology at baseline, chemistry within normal limits, potassium slightly decrease no need to replete at this time. Elevated LFTs chronically secondary to hep C -CT scan of lumbar spine pending -sign-out given to Dr. Sosa Differential Diagnosis Differential Diagnoses: The differential diagnosis associated with the presentation includes (Musculoskeletal pain, epidural abscess, contusion) Admission/Observation Consideration of admission/observation: Escalation of care including admission/observation considered (Given the patient's initial presentation and history, admission/transfer has been considered) Lab Data [facility] Lab Attestation statement: I reviewed the patient's lab results. treated hypokalemia 01/04/23 06:03 01/04/23 06:01 Labs: Lab Results 01/04/23 01/04/23 01/04/23 Range/Units 06:01 06:02 06:03 WBC 3.7 L (4.8-10.8) X10*3/uL RBC 3.42 L (4.20-5.50) X10*6/uL Hgb 10.1 L (12.0-16.0) g/dl Hct 30.1 L (37.0-47.0) % MCV 88.0 (80.0-98.0) fL MCH 29.5 (27.0-33.0) pg MCHC 33.6 (31.0-35.0) g/dl RDW 13.7 (11.0-16.0) % Plt Count 178 (160-400) X10*3/uL MPV 8.2 L (9.4-12.3) fL Immature Gran % (Auto) 0.3 (0.0-0.4) % Neut % (Auto) 86.6 H (45-73) % Lymph % (Auto) 12.0 L (20-40) % [place] % (Auto) 1.1 L (2-11) % Eos % (Auto) 0.0 (0-4) % Baso % (Auto) 0.0 (0-2) % Lymph # (Auto) 0.4 L (1.2-4.9) X10*3/uL [place] # (Auto) 0.0 L (0.1-1.2) X10*3/uL Eos # (Auto) 0.0 (0.0-0.4) X10*3/uL Baso # (Auto) 0.0 (0.0-0.2) X10*3/uL Abs Immat Gran (auto) 0.01 (0.00-0.03) X10*3/uL Absolute Neuts (auto) 3.2 (2.0-8.3) x10*3/uL Absolute Nucleated RBC 0.000 (0.0-0.012) X10*3/uL Nucleated RBC % (auto) 0.0 (0.0-0.2) /100WBC ESR 23 H (0-20) MM/HR PT 11.2 (11.1-13.3) SEC INR 0.9 (0.9-1.1) Sodium 134 L (135-145) mmol/L Potassium 3.2 L (3.3-5.1) mmol/L Chloride 102 (96-108) mmol/L Carbon Dioxide 23 (22-29) mmol/L Anion Gap 12 (12-20) BUN 10 (9-16) mg/dL Creatinine 0.81 (0.5-1.4) mg/dL Estim Creat Clear Calc 86.4 Estimated GFR > 60 Random Glucose 101 (60-115) mg/dL Lactic Acid 1.8 (0.5-2.0) mmol/L Calcium 8.5 D (8.4-10.2) mg/dL Total Bilirubin 1.0 (0.0-1.0) mg/dL Direct Bilirubin 0.6 H (0.0-0.5) mg/dL AST 71 H (5-31) U/L ALT 47 H (0-31) U/L Alkaline Phosphatase 138 H (39-117) U/L C-Reactive Protein 0.39 (< or = 0.50) mg/dL Total Protein 7.1 (6.5-8.0) g/dL Albumin 3.2 L (3.5-5.0) g/dL Beta HCG, Quant < 2 mIU/mL Urine Color Urine Appearance Urine pH (5.0-9.0) Ur Specific [place] (1.005-1.025) Urine Protein (Neg-Trace) mg/dL Urine Glucose (UA) (Negative) mg/dL Urine Ketones (Negative) mg/dL Urine Blood (Negative) Urine Nitrite (Negative) Ur Leukocyte Esterase (Negative) Urine RBC (0-2) /HPF Urine WBC (0-5) /HPF Ur Squamous Epith Cells (0-2) /HPF Urine Bacteria (None Seen) Hyaline Casts (0-2) /LPF Urine Opiates Screen (Not Detect) Urine Fentanyl Screen (Not Detect) Ur Barbiturates Screen (Not Detect) Ur Phencyclidine Scrn (Not Detect) Ur Amphetamines Screen (Not Detect) U Benzodiazepines Scrn (Not Detect) Urine Cocaine Screen (Not Detect) U Marijuana (THC) Screen (Not Detect) Ethyl Alcohol < 10 mg/dL COVID-19 (LILLIAM) (Negative) COVID-19 Clin Com Influenza Type A (BEBE) (Negative) Influenza Type B (BEBE) (Negative) Influenza A & B Note 01/04/23 Range/Units 08:45 WBC (4.8-10.8) X10*3/uL RBC (4.20-5.50) X10*6/uL Hgb (12.0-16.0) g/dl Hct (37.0-47.0) % MCV (80.0-98.0) fL MCH (27.0-33.0) pg MCHC (31.0-35.0) g/dl RDW (11.0-16.0) % Plt Count (160-400) X10*3/uL MPV (9.4-12.3) fL Immature Gran % (Auto) (0.0-0.4) % Neut % (Auto) (45-73) % Lymph % (Auto) (20-40) % [place] % (Auto) (2-11) % Eos % (Auto) (0-4) % Baso % (Auto) (0-2) % Lymph # (Auto) (1.2-4.9) X10*3/uL [place] # (Auto) (0.1-1.2) X10*3/uL Eos # (Auto) (0.0-0.4) X10*3/uL Baso # (Auto) (0.0-0.2) X10*3/uL Abs Immat Gran (auto) (0.00-0.03) X10*3/uL Absolute Neuts (auto) (2.0-8.3) x10*3/uL Absolute Nucleated RBC (0.0-0.012) X10*3/uL Nucleated RBC % (auto) (0.0-0.2) /100WBC ESR (0-20) MM/HR PT (11.1-13.3) SEC INR (0.9-1.1) Sodium (135-145) mmol/L Potassium (3.3-5.1) mmol/L Chloride (96-108) mmol/L Carbon Dioxide (22-29) mmol/L Anion Gap (12-20) BUN (9-16) mg/dL Creatinine (0.5-1.4) mg/dL Estim Creat Clear Calc Estimated GFR Random Glucose (60-115) mg/dL Lactic Acid (0.5-2.0) mmol/L Calcium (8.4-10.2) mg/dL Total Bilirubin (0.0-1.0) mg/dL Direct Bilirubin (0.0-0.5) mg/dL AST (5-31) U/L ALT (0-31) U/L Alkaline Phosphatase (39-117) U/L C-Reactive Protein (< or = 0.50) mg/dL Total Protein (6.5-8.0) g/dL Albumin (3.5-5.0) g/dL Beta HCG, Quant mIU/mL Urine Color Yellow Urine Appearance Clear Urine pH 5.5 (5.0-9.0) Ur Specific [place] 1.015 (1.005-1.025) Urine Protein Negative (Neg-Trace) mg/dL Urine Glucose (UA) Negative (Negative) mg/dL Urine Ketones Negative (Negative) mg/dL Urine Blood Large (3+) H (Negative) Urine Nitrite Negative (Negative) Ur Leukocyte Esterase Small (1+) H (Negative) Urine RBC 3-5 H (0-2) /HPF Urine WBC 6-10 H (0-5) /HPF Ur Squamous Epith Cells 3-5 (0-2) /HPF Urine Bacteria None Seen (None Seen) Hyaline Casts 0-2 (0-2) /LPF Urine Opiates Screen POSITIVE H (Not Detect) Urine Fentanyl Screen POSITIVE H (Not Detect) Ur Barbiturates Screen Not Detected (Not Detect) Ur Phencyclidine Scrn Not Detected (Not Detect) Ur Amphetamines Screen Not Detected (Not Detect) U Benzodiazepines Scrn Not Detected (Not Detect) Urine Cocaine Screen POSITIVE H (Not Detect) U Marijuana (THC) Screen POSITIVE H (Not Detect) Ethyl Alcohol mg/dL COVID-19 (LILLIAM) Negative (Negative) COVID-19 Clin Com See Note Influenza Type A (BEBE) Negative (Negative) Influenza Type B (BEBE) Negative (Negative) Influenza A & B Note See Note Independent Interpretation I performed an independent interpretation of an: Plain X-Ray (no infiltrate) and CT Scan (no destruction seen on CT) Radiology Impression Discussion of test interpretation with radiology: I have reviewed the radiologist's reading. (no evidence of epidural abscess) Independent Historian Clinical information obtained from an independent historian. History obtained from or confirmed by: Parent (mother at bedside) Tests considered The following testing was considered but not selected: MRI considered but patient with low sedrate and negative CT with iv contrast Chronic Conditions Patient?s care impacted by: Other (active IV drug abuse) Social Determinants Patient?s care significantly limited by Social Determinants of Health including: Alcoholism and drug addiction in family Critical Care Time Critical Care Time Critical Care Time: Yes Total Critical Care Time: 45 Attestation: I have personally provided critical care time. Time includes review of lab data, radiology results, discussion with consultants, and monitoring for potential decompensation. Intervention performed as documented. Discharge Plan Discharge Clinical Impression: Lumbar back pain, Urinary tract infection Patient Disposition: Home, Self-Care Instructions: Urinary Tract Infection in Women (ED) Prescriptions: New cephalexin 500 mg capsule 500 mg PO Q6H 7 Days Qty: 28 0RF No Action ibuprofen 600 mg tablet 600 mg PO Q8H PRN (Reason: pain) Qty: 20 0RF erythromycin 5 mg/gram (0.5 %) ointment 1 appl ophthalmic (eye) DAILY 5 Days Qty: 3.5 0RF Rx Instructions: Apply 1/2 inch strip to both eyes 4 times a day for 5 days metronidazole 500 mg tablet 500 mg PO BID 7 Days Qty: 14 0RF levofloxacin 250 mg tablet 250 mg PO DAILY 3 Days Qty: 3 0RF mupirocin 2 % ointment 1 appl topical BID Qty: 22 0RF cephalexin 500 mg capsule 500 mg PO QID 7 Days Qty: 28 0RF doxycycline hyclate 100 mg tablet 100 mg PO BID 7 Days Qty: 14 0RF methadone [Methadone Intensol] 10 mg/mL Concentrate 50 mg PO DAILY meloxicam 15 mg tablet 15 mg PO DAILY Qty: 14 0RF Referrals: Physician,Unknown J [Primary Care Provider] - 5 days
[2023-01-04 07:41] VITALS: BP 93/49; PULSE 97; RESP 18; TEMP 37.6; O2SAT 97
--- NOTE | 2023-01-04 08:01 | PC.NURSE ---
PT IS A/O NO SOB/TEQUILA NOTED. PT IS SLEEPY, AWAKE TO TACTILE/VERBAL STIMULI. PT HAS IVF INFUSING TO (R) LOWER FOREARM. PT C/O 9/10 LOWER BACK PAIN AND R LOWER CHEEK NUMBNESS. PT'S MOTHER IS AT BEDSIDE. PT AWARE OF PLAN OF CARE.
--- NOTE | 2023-01-04 08:18 | PC.NURSE ---
PT TO CT SCAN VIA STRETCHER.
[2023-01-04] MEDS: iohexoL 350 MG/ML 100 ML INFUS..BTL IV (08:27)
[2023-01-04 08:53] LABS: Appearance Urine Clear; Color Urine Yellow; Glucose Urine UA Negative (Negative); Leukocyte Esterase Urine Small (1+) (Negative); Nitrite Urine Negative (Negative); PH 5.5 (5.0-9.0); Specific Gravity - Urine 1.015 (1.005-1.025); UMIC TRIGGER UACC YES; Urine Blood Large (3+) (Negative); Urine Ketones Negative (Negative); Urine Protein Negative (Neg-Trace)
[2023-01-04 08:58] LABS: Amphetamine Screen Urine Not Detected (Not Detect); Barbiturates, Urine Not Detected (Not Detect); Benzodiazepines Screen Urine Not Detected (Not Detect); Cannabinoid Screen Urine POSITIVE (Not Detect); Cocaine Screen Urine POSITIVE (Not Detect); Fentanyl, urine POSITIVE (Not Detect); Opiate Screen Urine POSITIVE (Not Detect); Phencyclidine Screen Urine Not Detected (Not Detect)
[2023-01-04 09:03] LABS: Bacteria Urine None Seen (None Seen); Hyaline Casts Urine 0-2 /LPF (0-2); UACC Culture Trigger YES
[2023-01-04] MEDS: Potassium Chloride ER 20 MEQ TAB.ER.PRT PO (09:03)
[2023-01-04 09:04] LABS: COVID-19 Test Negative (Negative); IDNOW Serial# 08D9AD1C
[2023-01-04 09:08] LABS: IDNOW Serial# 9DB6401D; Influenza A Negative (Negative); Influenza B2 Negative (Negative)
--- NOTE | 2023-01-04 10:35 | PC.NURSE ---
This screen writer verified Methadone dose of 50mg last dose 01/03 at 1006. Spoke with Payton RIOS at [facility]
[2023-01-04 10:39] VITALS: BP 101/52; PULSE 84; RESP 14; TEMP 36.7; O2SAT 99
--- NOTE | 2023-01-04 10:54 | HE.PHANOTE ---
RE: METHADONE VERIFICATION LAST DOSE 50 MG GIVEN 01/03 @[facility] [place]
[2023-01-04] MEDS: methADONE HCl 20 MG/2 ML ORAL.CONC 50 MG PO (11:03)
[2023-01-04 12:01] LABS: UPreg QC Valid YES; Urine Pregnancy NEGATIVE (NEGATIVE)
[2023-01-04] MEDS: cephALEXin 500 MG CAPSULE PO (12:11)
== END 2023-01-04 12:20 | disposition home or self-care (01) ==
PROVIDERS: Emergency Medicine; Emergency Provider Emergency Medicine
DX: M54.50 Low back pain, unspecified (principal); N39.0 Urinary tract infection, site not specified; R50.9 Fever, unspecified; M79.605 Pain in left leg; F11.90 Opioid use, unspecified, uncomplicated; F14.90 Cocaine use, unspecified, uncomplicated; F12.10 Cannabis abuse, uncomplicated; Z11.52 Encounter for screening for COVID-19; Z20.822 Contact with and (suspected) exposure to COVID-19; Z79.899 Other long term (current) drug therapy
CPT/HCPCS: 71045; 72132; 80048; 80076; 80307; 81001; 81025; 83605; 84702; 85025; 85610; 85652; 86140; 87040; 87086; 87502; 87635; 96361; 96374; 99285; J1885; Q9967

== ENCOUNTER 2023-06-02 08:09 | Inpatient (IN) | payer OTHER, SELFPAY ==
--- NOTE | ~2023-06-02 | XR_ITS ---
EXAMINATION: XR CHEST CLINICAL INFORMATION: Line placement COMPARISON: Chest radiograph from 01/04/2023 TECHNIQUE: Frontal view of the chest was obtained. FINDINGS: Interval placement of right-sided central venous catheter with its distal tip terminating at the atrial caval junction. No pneumothorax. Trachea is midline. Cardiac mediastinal silhouette is not enlarged. No large pleural effusion. Dextrocurvature of the midthoracic spine. Soft tissues are unremarkable. XR/XR chest 1V IMPRESSION: Interval placement of right-sided central venous catheter with its distal tip terminating at the atrial caval junction.
--- NOTE | ~2023-06-02 | CT_ITS ---
EXAMINATION: CT ABDOMEN AND PELVIS WITH CONTRAST CLINICAL INFORMATION: Pain, nausea, vomiting COMPARISON: None available. TECHNIQUE: Multidetector volumetric images were obtained from the superior aspect of the liver through the pubic symphysis following administration 85 mL of Omnipaque 350 intravenous contrast. Sagittal and coronal reformatted images were obtained on the technologist's workstation. Oral contrast: No This CT examination was performed using dose optimization techniques as appropriate, variously including the following: *Automated exposure control *Adjustment of mA and/or kV according to patient size (this includes techniques or standardized protocols for targeted exams where dose is matched to indication/reason for exam; i.e. extremities or head) *Use of iterative reconstruction technique DLP: 427 mGy-cm FINDINGS: LUNG BASES: Unremarkable. ABDOMINAL AND PELVIC WALL: Unremarkable. LIVER AND BILIARY TREE: Liver is enlarged measuring 20.5 cm in span. GALLBLADDER: Unremarkable. PANCREAS: Unremarkable. SPLEEN: Spleen is enlarged measuring 15.5 cm in span. ADRENAL GLANDS: Unremarkable. KIDNEYS AND URETERS: Unremarkable. GASTROINTESTINAL TRACT: Large and small bowel are unremarkable. Normal appendix. VASCULAR: Unremarkable. LYMPH NODES/PERITONEUM: Mild nonspecific periportal edema. FREE FLUID: None. BLADDER: Unremarkable. PELVIC VISCERA: Unremarkable. OSSEOUS STRUCTURES: Unremarkable. CT/CT abdomen pelvis w IV con IMPRESSION: 1. Hepatosplenomegaly. 2. Mild nonspecific periportal edema.
--- NOTE | ~2023-06-02 | CT_ITS ---
EXAMINATION: CT HEAD WITHOUT CONTRAST CLINICAL INFORMATION: Head strike COMPARISON: None TECHNIQUE: Contiguous axial imaging was performed from the skull base to vertex without intravenous administration of contrast. This CT examination was performed using dose optimization techniques as appropriate, variously including the following: *Automated exposure control *Adjustment of mA and/or kV according to patient size (this includes techniques or standardized protocols for targeted exams where dose is matched to indication/reason for exam; i.e. extremities or head) *Use of iterative reconstruction technique DLP: 934 mGy-cm FINDINGS: There is no evidence of acute intracranial hemorrhage or territorial infarction. No abnormal mass effect or midline shift is seen. [place] to white matter differentiation is well preserved. No extra-axial fluid collections are identified. The ventricles are normal in size. There is no abnormal attenuation within the brain parenchyma. The osseous structures and soft tissues are normal. The mastoid air cells and visualized portions of the paranasal sinuses are well aerated. CT/CT cervical spine wo IV con IMPRESSION: No acute intracranial pathology. EXAMINATION: Noncontrast CT scan of the cervical spine. INDICATION: Head strike COMPARISON: None. TECHNIQUE: Helical, multidetector axial images were obtained from the occiput to the upper thorax. Coronal and sagittal reformats of the cervical spine were provided for interpretation. DLP: 934 mGy-cm FINDINGS: No acute fractures or dislocations of the cervical spine are seen. Straightening of the normal cervical curvature which may be secondary to patient positioning versus muscle spasm. Anatomic alignment and positioning of the vertebral bodies and posterior elements is noted. The atlantoaxial joint and craniovertebral articulations are normal without evidence of subluxation. There is no prevertebral soft tissue swelling. The thyroid gland and visualized portions of the lung apices and mediastinum are unremarkable. IMPRESSION: 1. No acute visible fracture or dislocation. 2. Straightening of the normal cervical curvature which may be secondary to patient positioning versus muscle spasm.
[2023-06-02 08:16] VITALS: BP 115/69; PULSE 59; RESP 18; TEMP 36.4; O2SAT 100; BMI 21.3
--- NOTE | 2023-06-02 11:36 | ED_ITS ---
HPI - General Adult General Chief complaint: Head Injury Stated complaint: Fall yesterday - head injury Time Seen by Provider: 06/02/23 11:36 Source: patient Mode of arrival: ambulatory Limitations: no limitations History of Present Illness HPI narrative: Patient is a 33 year old female with a history of OUD and a history of migraines, presents with a 2 day history of headaches, nausea, and vomiting after hitting her head 2 days ago. Patient reports she was cleaning when she tripped and hit her head on a kitchen cabinet. Patient reports brief LOC and has been experiencing these symptoms since. Patient endorses associated lightheadedness, dizziness, weakness, fatigue, SOB, and sporadic chest pain. Denies fever/chills, changes to memory, abdominal pain, numbness, tingling, urinary symptoms, and changes to bowel habits. Patient is not on blood thinners. MD complaint: Headaches, nausea and vomiting Onset (ago): day(s) (2) Location: head Radiation: non-radiation Severity: mild Severity scale (1-10): 3 Quality: aching Pain Consistency: constant Relieving factors: none Exacerbating factors: none Associated symptoms: chest pain, headaches, nausea/vomiting, shortness of breath and weakness Treatments prior to arrival: NSAID Related Data Home Medications Medication Instructions Recorded Confirmed methadone 10 mg/mL oral 50 mg PO DAILY 01/04/23 01/04/23 concentrate (Methadone Intensol) gabapentin 300 mg capsule 300 mg PO TID PRN Pain 06/02/23 06/02/23 hydroxyzine HCl 25 mg tablet 25 mg PO TID 06/02/23 06/02/23 trazodone 50 mg tablet 50 mg PO BEDTIME PRN Insomnia 06/02/23 06/02/23 Allergies Allergy/AdvReac Type Severity Reaction Status Date / Time No Known Allergies Allergy Verified 06/02/23 08:14 [No Known Allergies*] Review of Systems 2 Constitutional: Constitutional: Reports no additional constitutional complaints, Denies chills, Denies fever(s), Reports headache(s) and Denies night sweats Eyes: Eyes: Reports no additional eye complaints, Denies blurry vision, Denies change in vision, Denies diplopia, Denies eye discharge, Denies loss of vision and Denies eye pain ENT: Reports headache(s) Cardiovascular: Cardiovascular: Reports no additional cardiovascular complaints Respiratory: Respiratory: Reports no additional respiratory complaints Gastrointestinal: Gastrointestinal: Reports no additional gastrointestinal complaints, Reports abdominal pain, Denies melena, Denies hematochezia, Denies change in bowel habits, Denies change in stool character, Reports nausea and Reports vomiting Genitourinary: Genitourinary: Denies hematuria, Denies urinary frequency, Denies dysuria, Denies urinary incontinence, Denies urinary hesitancy and Denies urinary urgency Musculoskeletal: Musculoskeletal: Reports no additional musculoskeletal complaints, Denies numbness and Denies tingling Neurologic: Reports headache(s), Denies loss of vision, Denies numbness and Denies tingling Psychiatric: Psychiatric: Reports no additional psychiatric complaints Endocrine: Endocrine: Reports no additional endocrine complaints Hematologic/Lymphatic: Hematologic/Lymphatic: Reports no additional hematologic/lymphatic complaints Allergic/Immunologic: Allergic/Immunologic: Reports no additional allergic/immunologic complaints [facility] Past Medical History Attestation statement: The following information was validated with the patient. Source: old records reviewed and nursing notes reviewed Medical History Scoliosis Hepatitis C Social History Social History Alcohol intake: current Alcohol intake frequency: a few times a month Patient Tobacco Use Status: Current everyday Tobacco user Smoked in Last 30 Days: Yes Use of substances other than those prescribed or required for medical reasons: No Substance Use Type: Crack/Cocaine, Heroin and Marijuana Advance Directives: No Patient : No Physical Exam ED Vital Signs: Vital Signs - 24 hr 06/02/23 08:16 06/02/23 11:58 06/02/23 14:18 Temperature 97.5 F 97.9 F Pulse Rate 59 52 52 Respiratory Rate 18 16 16 Blood Pressure 115/69 93/49 L 103/57 L Pulse Oximetry 100 99 100 Oxygen Delivery Method Room Air Room Air Room Air 06/02/23 14:38 06/02/23 16:26 06/02/23 17:50 Temperature 97.6 F 98.2 F Pulse Rate 54 52 60 Respiratory Rate 12 9 L 18 Blood Pressure 93/54 L 85/50 L 112/69 Pulse Oximetry 99 99 96 Oxygen Delivery Method Room Air Room Air Room Air BMI result Body Mass Index 21.3 Const General: cooperative, awake and tired appearing Nutritional Appearance: malnourished Orientation/consciousness: patient oriented x3 Limitations: no limitations HENMT Head: Yes normal to inspection Ears: hearing grossly normal bilaterally General nose exam: Normal external nose present Face and sinus: Yes normal facial exam Mouth: Normal oral and palatal mucosa present, no drooling and no muffled voice Eyes General: appearance normal, both eyes and all related structures Periorbital: periorbital findings normal Eyelids: Yes eyelids normal Conjunctivae: conjunctivae normal Pupils: Equal, round and reactive pupils present EOM: EOMs intact bilaterally Neck Neck: Yes normal visual inspection Chest Chest palpation & inspection: normal inspection of the chest Resp Effort & Inspection: normal respiratory effort and able to speak in complete sentences Auscultation: clear to auscultation bilaterally Cardio Jugular venous distension: no JVD Palpation: normal PMI Rate: regular rate Rhythm: regular rhythm GI Inspection: Yes normal to inspection Palpation (GI): Soft to palpation, not firm, nontender and no guarding Neuro General: patient oriented x3 Cranial nerves: Yes Equal, round and reactive pupils present Cognition (Neuro): normal cognition Motor exam (neuro): 5/5 motor strength present throughout Sensory Exam: Normal double simultaneous stimulation for sensation Coordination: [id number] test normal Extrem General: Yes normal to inspection, Yes full ROM and Yes capillary refill normal Psych Appearance: grossly normal Mental Status: mental status grossly normal Affect: normal affect Attitude: cooperative Thought process: Normal thought process present Thought content: Normal thought content present Insight: Good insight present (Psych) Medications Administered Discontinued Medications Generic Name Dose Route Start Last Admin Trade Name Freq PRN Reason Stop Dose Admin Diphenhydramine HCl 25 mg 06/02/23 17:42 06/02/23 17:50 Diphenhydramine Hcl 50 Mg/Ml Vial IVPUSH 06/02/23 17:43 25 mg ONCE ONE Administration Sodium Chloride 1,000 mls @ 999 mls/hr 06/02/23 16:00 06/02/23 18:32 Ns IV 06/02/23 17:00 Infused .Q1H1M NITESH Infusion Iohexol 100 ml 06/02/23 16:50 06/02/23 16:50 Iohexol 350 Mg/Ml 100 Ml Infus..Btl IV 06/02/23 16:51 85 ml ONCE ONE Administration Lidocaine HCl 4 ml 06/02/23 13:54 06/02/23 13:58 Lidocaine Hcl 1 % Mpf 5 Ml Vial SUBCUT 06/02/23 13:55 4 ml ONCE ONE Administration Lorazepam 2 mg 06/02/23 17:37 06/02/23 17:41 Lorazepam 2 Mg/Ml Vial IVPUSH 06/02/23 17:38 2 mg ONCE ONE Administration Methadone HCl 70 mg 06/02/23 12:32 06/02/23 12:42 Methadone Hcl 20 Mg/2 Ml Oral.Conc PO 06/02/23 12:33 70 mg ONCE ONE Administration Ondansetron HCl 4 mg 06/02/23 11:48 06/02/23 12:42 Ondansetron Odt 4 Mg Tab.Rapdis TRANSLINGU 06/02/23 11:49 4 mg ONCE ONE Administration Procedures Central Line Placement Right IJ: Time Out Performed: Yes MD Prep: mask, gown and gloves Central Line Prep: Chlorhexidine scrub Local Anesthetic: lidocaine 1% Amount of anesthesia used (mL): 7 Ultrasound Used for Placement: Yes Central Line Lumen Inserted: triple Post Procedure: sutured in place, good blood return, all ports aspirated, flushed, capped and sterile dressing applied Post Procedure X-Ray: tip of catheter in good position and no pneumothorax seen Patient Tolerated Procedure: well and no complications Complications: none Medical Decision Making Medical Decision Making MDM Narrative: Patient is a 33 year old assigned female at with a history of IV drug use, migraine headaches, and hepatitis C presenting to the emergency department today with a headache, nausea, and vomiting. Patient's physical exam was as noted in the physical exam portion of this note. Patient's blood work showed a mild anemia of hgb 9.7 and mildly elevated LFTs which is chronic for the patient, the rest of the patient's lab work was unremarkable. Patient's UA showed >50 WBC and small leuks - given patient's clinical presentation, will treat with ABX. Patient's clinical presentation is not consistent with sepsis (@1830). Patient's urine tox screen showed opiates, fentanyl, cocaine, and marijuana. Patient's EKG showed QT prolongation which is consistent with methadone use. Patient was has very poor veins for IV access. Dr. Mckeon placed a central line in the right IJ. Chest x-ray confirmed line placement. Patient's head CT, C-Spine CT, and abdomen/pelvis CT showed no acute process. I explained my physical exam findings as well as all test results to the patient. I answered all questions asked by the patient. Patient received Zofran, ativan, and Benadryl but was unable to tolerate PO. I spoke to the hospitalist team who agreed to admission. Patient verbalized agreement and understanding with this treatment plan and admission. Differential Diagnosis Differential Diagnoses: The differential diagnosis associated with the presentation includes Nausea Vomiting Concussion IV drug use Admission/Observation Consideration of admission/observation: Escalation of care including admission/observation considered Patient admitted. Consult Healthcare Provider Management of the patient was discussed with: Hospitalist (Agreed to admission.) Lab Data [facility] Lab Attestation statement: I reviewed the patient's lab results. My interpretation of these results are in the MDM Rationale portion of this note. 06/02/23 16:03 06/02/23 16:03 Labs: Lab Results 06/02/23 06/02/23 06/02/23 Range/Units 12:16 16:03 17:17 WBC 4.0 L (4.8-10.8) X10*3/uL RBC 3.44 L (4.20-5.50) X10*6/uL Hgb 9.7 L (12.0-16.0) g/dl Hct 29.1 L (37.0-47.0) % MCV 84.6 (80.0-98.0) fL MCH 28.2 (27.0-33.0) pg MCHC 33.3 (31.0-35.0) g/dl RDW 16.8 H (11.0-16.0) % Plt Count 174 (160-400) X10*3/uL MPV 8.9 L (9.4-12.3) fL Immature Gran % (Auto) 0.2 (0.0-0.4) % Neut % (Auto) 44.6 L (45-73) % Lymph % (Auto) 42.6 H (20-40) % [place] % (Auto) 12.2 H (2-11) % Eos % (Auto) 0.2 (0-4) % Baso % (Auto) 0.2 (0-2) % Lymph # (Auto) 1.7 (1.2-4.9) X10*3/uL [place] # (Auto) 0.5 (0.1-1.2) X10*3/uL Eos # (Auto) 0.0 (0.0-0.4) X10*3/uL Baso # (Auto) 0.0 (0.0-0.2) X10*3/uL Abs Immat Gran (auto) 0.01 (0.00-0.03) X10*3/uL Absolute Neuts (auto) 1.8 L (2.0-8.3) x10*3/uL Absolute Nucleated RBC 0.000 (0.0-0.012) X10*3/uL Nucleated RBC % (auto) 0.0 (0.0-0.2) /100WBC Sodium 136 (135-145) mmol/L Potassium 3.8 (3.3-5.1) mmol/L Chloride 105 (96-108) mmol/L Carbon Dioxide 26 (22-29) mmol/L Anion Gap 9 L (12-20) BUN 9 (9-16) mg/dL Creatinine 0.61 (0.5-1.4) mg/dL Estim Creat Clear Calc 134.0 Estimated GFR > 60 Random Glucose 106 (60-115) mg/dL Lactic Acid 0.7 (0.5-2.0) mmol/L Calcium 8.9 (8.4-10.2) mg/dL Magnesium 2.0 (1.6-2.6) mg/dL Total Bilirubin 0.4 (0.0-1.0) mg/dL AST 76 H (5-31) U/L ALT 94 H (0-31) U/L Alkaline Phosphatase 72 (39-117) U/L Total Protein 7.6 (6.5-8.0) g/dL Albumin 3.5 (3.5-5.0) g/dL Beta HCG, Quant < 2 mIU/mL Urine Color Yellow Urine Appearance Clear Urine pH 7.5 (5.0-9.0) Ur Specific [place] >= 1.030 H (1.005-1.025) Urine Protein Trace (Neg-Trace) mg/dL Urine Glucose (UA) Negative (Negative) mg/dL Urine Ketones Negative (Negative) mg/dL Urine Blood Negative (Negative) Urine Nitrite Negative (Negative) Ur Leukocyte Esterase Small (1+) H (Negative) Urine RBC 0-2 (0-2) /HPF Urine WBC >50 H (0-5) /HPF Ur Squamous Epith Cells 6-10 (0-2) /HPF Urine Bacteria None Seen (None Seen) Hyaline Casts 0-2 (0-2) /LPF Urine Opiates Screen POSITIVE H (Not Detect) Urine Fentanyl Screen POSITIVE H (Not Detect) Ur Barbiturates Screen Not Detected (Not Detect) Ur Phencyclidine Scrn Not Detected (Not Detect) Ur Amphetamines Screen Not Detected (Not Detect) U Benzodiazepines Scrn Not Detected (Not Detect) Urine Cocaine Screen POSITIVE H (Not Detect) U Marijuana (THC) Screen POSITIVE H (Not Detect) Influenza Type A (PCR) NEGATIVE (Negative) Influenza Type B (PCR) NEGATIVE (Negative) RSV RNA Qual (PCR) NEGATIVE (Negative) SARS-CoV-2 RNA (RT-PCR) NEGATIVE (Negative) Independent Interpretation I performed an independent interpretation of an: EKG, Plain X-Ray and CT Scan Interpretation: My interpretation is in agreement with the radiologist's impression of these imaging studies. - EXAMINATION: CT ABDOMEN AND PELVIS WITH CONTRAST CLINICAL INFORMATION: Pain, nausea, vomiting COMPARISON: None available. TECHNIQUE: Multidetector volumetric images were obtained from the superior aspect of the liver through the pubic symphysis following administration 85 mL of Omnipaque 350 intravenous contrast. Sagittal and coronal reformatted images were obtained on the technologist's workstation. Oral contrast: No This CT examination was performed using dose optimization techniques as appropriate, variously including the following: *Automated exposure control *Adjustment of mA and/or kV according to patient size (this includes techniques or standardized protocols for targeted exams where dose is matched to indication/reason for exam; i.e. extremities or head) *Use of iterative reconstruction technique DLP: 427 mGy-cm FINDINGS: LUNG BASES: Unremarkable. ABDOMINAL AND PELVIC WALL: Unremarkable. LIVER AND BILIARY TREE: Liver is enlarged measuring 20.5 cm in span. GALLBLADDER: Unremarkable. PANCREAS: Unremarkable. SPLEEN: Spleen is enlarged measuring 15.5 cm in span. ADRENAL GLANDS: Unremarkable. KIDNEYS AND URETERS: Unremarkable. GASTROINTESTINAL TRACT: Large and small bowel are unremarkable. Normal appendix. VASCULAR: Unremarkable. LYMPH NODES/PERITONEUM: Mild nonspecific periportal edema. FREE FLUID: None. BLADDER: Unremarkable. PELVIC VISCERA: Unremarkable. OSSEOUS STRUCTURES: Unremarkable. CT/CT abdomen pelvis w IV con IMPRESSION: 1. Hepatosplenomegaly. 2. Mild nonspecific periportal edema. Dictated By: Tigist Manzo MD Signed By: Electronically signed by Tigist Manzo MD 06/02/23 1818 - EXAMINATION: XR CHEST CLINICAL INFORMATION: Line placement COMPARISON: Chest radiograph from 01/04/2023 TECHNIQUE: Frontal view of the chest was obtained. FINDINGS: Interval placement of right-sided central venous catheter with its distal tip terminating at the atrial caval junction. No pneumothorax. Trachea is midline. Cardiac mediastinal silhouette is not enlarged. No large pleural effusion. Dextrocurvature of the midthoracic spine. Soft tissues are unremarkable. XR/XR chest 1V IMPRESSION: Interval placement of right-sided central venous catheter with its distal tip terminating at the atrial caval junction. Dictated By: Celestine Nieves MD Signed By: Electronically signed by Celestine Nieves MD 06/02/23 1540 - EXAMINATION: CT HEAD WITHOUT CONTRAST CLINICAL INFORMATION: Head strike COMPARISON: None TECHNIQUE: Contiguous axial imaging was performed from the skull base to vertex without intravenous administration of contrast. This CT examination was performed using dose optimization techniques as appropriate, variously including the following: *Automated exposure control *Adjustment of mA and/or kV according to patient size (this includes techniques or standardized protocols for targeted exams where dose is matched to indication/reason for exam; i.e. extremities or head) *Use of iterative reconstruction technique DLP: 934 mGy-cm FINDINGS: There is no evidence of acute intracranial hemorrhage or territorial infarction. No abnormal mass effect or midline shift is seen. [place] to white matter differentiation is well preserved. No extra-axial fluid collections are identified. The ventricles are normal in size. There is no abnormal attenuation within the brain parenchyma. The osseous structures and soft tissues are normal. The mastoid air cells and visualized portions of the paranasal sinuses are well aerated. CT/CT head/brain wo IV con IMPRESSION: No acute intracranial pathology. EXAMINATION: Noncontrast CT scan of the cervical spine. INDICATION: Head strike COMPARISON: None. TECHNIQUE: Helical, multidetector axial images were obtained from the occiput to the upper thorax. Coronal and sagittal reformats of the cervical spine were provided for interpretation. DLP: 934 mGy-cm FINDINGS: No acute fractures or dislocations of the cervical spine are seen. Straightening of the normal cervical curvature which may be secondary to patient positioning versus muscle spasm. Anatomic alignment and positioning of the vertebral bodies and posterior elements is noted. The atlantoaxial joint and craniovertebral articulations are normal without evidence of subluxation. There is no prevertebral soft tissue swelling. The thyroid gland and visualized portions of the lung apices and mediastinum are unremarkable. IMPRESSION: 1. No acute visible fracture or dislocation. 2. Straightening of the normal cervical curvature which may be secondary to patient positioning versus muscle spasm. Dictated By: Celestine Nieves MD Signed By: Electronically signed by Celestine Nieves MD 06/02/23 1158 - Vent. Rate: 047 BPM Atrial Rate: 047 BPM P-R Int: 132 ms QRS Dur: 084 ms QT Int: 546 ms P-R-T Axes: 049 079 044 degrees QTc Int: 483 ms Sinus bradycardia with sinus arrhythmia Prolonged QT Abnormal ECG No previous ECGs available DD/ 1300 Radiology Impression Discussion of test interpretation with radiology: I have reviewed the radiologist's reading. Critical Care Time Critical Care Time Critical Care Time: Yes Total Critical Care Time: 129 Attestation: I spent 129 minutes of Critical Care Time with this patient. This does not include time spent on separately reported billable procedures. Discharge Plan Discharge Clinical Impression: Concussion, Nausea & vomiting, UTI (urinary tract infection) Patient Disposition: Admitted As Inpatient
[2023-06-02 11:58] VITALS: BP 93/49; PULSE 52; RESP 16; O2SAT 99
--- NOTE | 2023-06-02 12:27 | MHC.EDTECH ---
this pct fails at two attempts to draw patient's blood. mary grace stafford present for second draw and verbally states to not draw the labs.
[2023-06-02] MEDS: Ondansetron ODT 4 MG TAB.RAPDIS TRANSLINGU (12:42)
[2023-06-02] MEDS: methADONE HCl 20 MG/2 ML ORAL.CONC 70 MG PO (12:42)
--- NOTE | 2023-06-02 12:44 | PC.NURSE ---
attempted to call methadone clinic but it was closed, PA spoke with adilia rodriguez about dosage and pt was medicated per orders
--- NOTE | 2023-06-02 12:49 | ECG_ITS ---
Test Reason : eval qt prolongation Blood Pressure : / mmHG Vent. Rate : 047 BPM Atrial Rate : 047 BPM P-R Int : 132 ms QRS Dur : 084 ms QT Int : 546 ms P-R-T Axes : 049 079 044 degrees QTc Int : 483 ms Sinus bradycardia with sinus arrhythmia Prolonged QT Abnormal ECG No previous ECGs available Referred By: Laurence Ly Electronically Signed By:GAUTAM BELLAMY
[2023-06-02 13:33] LABS: Influenza A PCR NEGATIVE (Negative); Influenza B PCR NEGATIVE (Negative); Resp Syncy Virus RNA Qual PCR NEGATIVE (Negative); SARS COV2 PCR INHOUSE NEGATIVE (Negative)
--- NOTE | 2023-06-02 13:48 | PC.NURSE ---
pt was medicated with methadone and zofran, per provider pt vomited medication. pt was moved to [facility] to have a central line inserted.
[2023-06-02] MEDS: Lidocaine HCl 1 % MPF 5 ML VIAL 4 ML SUBCUT (13:58)
--- NOTE | 2023-06-02 14:07 | PC.NURSE ---
central line placed by provider, cxr performed for confirmation
[2023-06-02 14:18] VITALS: BP 103/57; PULSE 52; RESP 16; TEMP 36.6; O2SAT 100
[2023-06-02 14:38] VITALS: BP 93/54; PULSE 54; RESP 12; O2SAT 99
[2023-06-02 16:12] LABS: MANUAL DIFF FLAG NO
--- NOTE | 2023-06-02 16:12 | PC.NURSE ---
labs drawn through central line, phlebotomy called to obtain second set of blood cultures as pt had to get a central line for access
[2023-06-02 16:14] LABS: Basophils Percent Auto 0.2 % (0-2); Eosinophils Percent Auto 0.2 % (0-4); Hematocrit 29.1 % (37.0-47.0); Hemoglobin 9.7 g/dl (12.0-16.0); Imm Gran Abs Auto 0.01 X10*3/uL (0.00-0.03); Imm Gran Pct Auto 0.2 % (0.0-0.4); Lymphocytes Absolute Auto 1.7 X10*3/uL (1.2-4.9); Lymphocytes Percent Auto 42.6 % (20-40); Mean Corpuscular HGB Conc 33.3 g/dl (31.0-35.0); Mean Corpuscular Hemoglobin 28.2 pg (27.0-33.0); Mean Corpuscular Volume 84.6 fL (80.0-98.0); Mean Platelet Volume 8.9 fL (9.4-12.3); Monocytes Absolute Auto 0.5 X10*3/uL (0.1-1.2); Monocytes Percent Auto 12.2 % (2-11); Neutrophils Absolute Auto 1.8 x10*3/uL (2.0-8.3); Neutrophils Percent Auto 44.6 % (45-73); Platelet Count 174 X10*3/uL (160-400); Red Blood Count 3.44 X10*6/uL (4.20-5.50); Red Cell Distribution Width 16.8 % (11.0-16.0)
[2023-06-02 16:25] LABS: Lactic Acid 0.7 mmol/L (0.5-2.0)
[2023-06-02 16:26] VITALS: BP 85/50; PULSE 52; RESP 9; TEMP 36.4; O2SAT 99
[2023-06-02 16:27] LABS: Alanine Aminotransferase 94 U/L (0-31); Albumin Level 3.5 g/dL (3.5-5.0); Alkaline Phosphatase 72 U/L (39-117); Anion Gap 9 (12-20); Aspartate Amino Transferase 76 U/L (5-31); Bilirubin Total 0.4 mg/dL (0.0-1.0); Blood Urea Nitrogen 9 mg/dL (9-16); Calcium 8.9 mg/dL (8.4-10.2); Carbon Dioxide 26 mmol/L (22-29); Chloride 105 mmol/L (96-108); Estimated Glomerular Filt Rate > 60; Glucose Random 106 mg/dL (60-115); Potassium 3.8 mmol/L (3.3-5.1); Sodium 136 mmol/L (135-145); Total Protein 7.6 g/dL (6.5-8.0)
[2023-06-02 16:35] LABS: HCG Quantitative < 2 mIU/mL
[2023-06-02] MEDS: iohexoL 350 MG/ML 100 ML INFUS..BTL IV (16:50)
[2023-06-02] MEDS: 0.9 % Sodium Chloride 1,000 ML 999 ML IV (17:15)
[2023-06-02 17:35] LABS: Appearance Urine Clear; Color Urine Yellow; Glucose Urine UA Negative (Negative); Leukocyte Esterase Urine Small (1+) (Negative); Nitrite Urine Negative (Negative); PH 7.5 (5.0-9.0); Specific Gravity - Urine >= 1.030 (1.005-1.025); UMIC TRIGGER UACC YES; Urine Blood Negative (Negative); Urine Ketones Negative (Negative); Urine Protein Trace mg/dL (Neg-Trace)
[2023-06-02] MEDS: LORazepam 2 MG/ML VIAL IVPUSH (17:41)
[2023-06-02 17:50] VITALS: BP 112/69; PULSE 60; RESP 18; TEMP 36.8; O2SAT 96
[2023-06-02] MEDS: diphenhydrAMINE HCL 50 MG/ML VIAL 25 MG IVPUSH (17:50)
[2023-06-02 18:07] LABS: Amphetamine Screen Urine Not Detected (Not Detect); Barbiturates, Urine Not Detected (Not Detect); Benzodiazepines Screen Urine Not Detected (Not Detect); Cannabinoid Screen Urine POSITIVE (Not Detect); Cocaine Screen Urine POSITIVE (Not Detect); Fentanyl, urine POSITIVE (Not Detect); Opiate Screen Urine POSITIVE (Not Detect); Phencyclidine Screen Urine Not Detected (Not Detect)
[2023-06-02 18:25] LABS: Bacteria Urine None Seen (None Seen); Hyaline Casts Urine 0-2 /LPF (0-2); RBC Urine 0-2 /HPF (0-2); UACC Culture Trigger YES; WBC Urine >50 /HPF (0-5)
--- NOTE | 2023-06-02 19:23 | PHA.MEDREC ---
Pharmacy Consult ? Medication Reconciliation Pharmacy has completed the medication reconciliation. Patient difficult to arouse. When asked if she takes any medications she reported no. When asked about specific medications she sometimes gave an answer. Report gabapentin as prn and report taking hydroxyzine TID. She stated she gets methadone from [facility] but could not clarify which facility. Elodia Wray, PharmD
[2023-06-02] MEDS: cefTRIAXone sodium 1 GM in 0.9 % Sodium Chloride 50 ML IV (20:34)
--- NOTE | 2023-06-02 21:10 | P.HPHOSP_ITS ---
History of Present Illness Date of Service: 06/02/23 Attending physician on admission: Mirna Greer Chief Complaint: Intractable nausea, vomiting, headache Pt is a 33-year-old female with a PMH significant for?opioid use disorder, IVDU, and migraines who presents to the ED for evaluation of nausea, vomiting, and headache since hitting her head 2 days ago. Patient is somnolent but arousable at time of interview and exam, flight immediately back asleep when awoken. Patient is unable to answer any questions provide any other details than stating she has had nausea and vomiting ?for a long time?. HPI thus obtained from chart and provider review. Patient apparently reported she was cleaning at home 2 days prior when she tripped and struck her head on a kitchen cabinet. Experienced a brief moment of LOC, and since then has had lightheadedness, dizziness, weakness, fatigue and occasional SOB and unspecified chest pain. Due to persistent nausea and vomiting, has been unable to tolerate p.o. since incident. ? In the ED pt's BP was as low as 85/50, vitals otherwise WNL. Labs were significant for H&H 9.7/29.1, AST 76, and ALT 94. Otherwise grossly unremarkable. No electrolyte abnormalities. Renal function WNL. UA positive for leukocyte esterase and WBC >50. Tox screen positive for opiates, fentanyl, cocaine, and marijuana. CT?of head showed no acute intracranial pathology. CT of cervical spine showed no acute visible fracture or dislocation. CT of abdomen and pelvis found hepatosplenomegaly and mild nonspecific periportal edema. EKG demonstrated sinus bradycardia with sinus arrhythmia and prolonged QT of 483. Pt was treated with ondansetron, methadone, lidocaine, IVF, lorazepam, diphenhydramine, and ceftriaxone. Pt will be admitted to the hospital under observation for treatment further evaluation of intractable nausea and vomiting. Review of Systems 2 Review of Systems: Unable to obtain due to patient's mentation [facility] Medical History Scoliosis Hepatitis C Social History Alcohol intake: current Alcohol intake frequency: a few times a month Patient Tobacco Use Status: Current everyday Tobacco user Smoked in Last 30 Days: Yes Use of substances other than those prescribed or required for medical reasons: No Substance Use Type: Crack/Cocaine, Heroin and Marijuana Advance Directives: No Patient : No Meds Allergies Allergy/AdvReac Type Severity Reaction Status Date / Time No Known Allergies Allergy Verified 06/02/23 08:14 [No Known Allergies*] Home Medications Medication Instructions Recorded Confirmed Last Taken Type methadone 10 mg/mL oral 50 mg PO DAILY 01/04/23 01/04/23 01/03/23 10:06 History concentrate (Methadone Intensol) gabapentin 300 mg capsule 300 mg PO TID PRN Pain 06/02/23 06/02/23 Unknown History hydroxyzine HCl 25 mg tablet 25 mg PO TID 06/02/23 06/02/23 Unknown History trazodone 50 mg tablet 50 mg PO BEDTIME PRN Insomnia 06/02/23 06/02/23 Unknown History Physical Exam 2 Vital Signs and Narrative: Vital Signs: Last Vital Signs Temp 98.2 F 06/02/23 17:50 Pulse 60 06/02/23 17:50 Resp 18 06/02/23 17:50 BP 112/69 06/02/23 17:50 Pulse Ox 96 06/02/23 17:50 O2 Del Method Room Air 06/02/23 17:50 BMI result Body Mass Index 21.3 General: Somnolent but arousable, immediately falling back asleep during interview. In no acute distress Resp: CTA bilaterally CVS: S1, S2, RRR GI: +BS, NT, no distention Skin: Warm, dry. Multiple track no on dorsal aspect of hands bilaterally. No signs of infection Neuro: Cranial nerves II-XII grossly intact bilaterally. Motor grossly intact bilaterally Extremities: No edema Results Labs 06/02/23 16:03 06/02/23 16:03 Labs: Laboratory Results - last 24 hr 06/02/23 06/02/23 06/02/23 12:16 16:03 17:17 MCV 84.6 MCH 28.2 MCHC 33.3 RDW 16.8 H Plt Count 174 MPV 8.9 L Immature Gran % (Auto) 0.2 Neut % (Auto) 44.6 L Lymph % (Auto) 42.6 H [place] % (Auto) 12.2 H Eos % (Auto) 0.2 Baso % (Auto) 0.2 Lymph # (Auto) 1.7 [place] # (Auto) 0.5 Eos # (Auto) 0.0 Baso # (Auto) 0.0 Abs Immat Gran (auto) 0.01 Absolute Neuts (auto) 1.8 L Absolute Nucleated RBC 0.000 Nucleated RBC % (auto) 0.0 Anion Gap 9 L Estim Creat Clear Calc 134.0 Estimated GFR > 60 Random Glucose 106 Lactic Acid 0.7 Calcium 8.9 Magnesium 2.0 Total Bilirubin 0.4 AST 76 H ALT 94 H Alkaline Phosphatase 72 Total Protein 7.6 Albumin 3.5 Beta HCG, Quant < 2 Urine Color Yellow Urine Appearance Clear Urine pH 7.5 Ur Specific [place] >= 1.030 H Urine Protein Trace Urine Glucose (UA) Negative Urine Ketones Negative Urine Blood Negative Urine Nitrite Negative Ur Leukocyte Esterase Small (1+) H Urine RBC 0-2 Urine WBC >50 H Ur Squamous Epith Cells 6-10 Urine Bacteria None Seen Hyaline Casts 0-2 Urine Opiates Screen POSITIVE H Urine Fentanyl Screen POSITIVE H Ur Barbiturates Screen Not Detected Ur Phencyclidine Scrn Not Detected Ur Amphetamines Screen Not Detected U Benzodiazepines Scrn Not Detected Urine Cocaine Screen POSITIVE H U Marijuana (THC) Screen POSITIVE H Influenza Type A (PCR) NEGATIVE Influenza Type B (PCR) NEGATIVE RSV RNA Qual (PCR) NEGATIVE SARS-CoV-2 RNA (RT-PCR) NEGATIVE Imaging Radiologist's Impressions: Impressions Cervical Spine CT 06/02/23 11:31 IMPRESSION: No acute intracranial pathology. EXAMINATION: Noncontrast CT scan of the cervical spine. INDICATION: Head strike COMPARISON: None. TECHNIQUE: Helical, multidetector axial images were obtained from the occiput to the upper thorax. Coronal and sagittal reformats of the cervical spine were provided for interpretation. DLP: 934 mGy-cm FINDINGS: No acute fractures or dislocations of the cervical spine are seen. Straightening of the normal cervical curvature which may be secondary to patient positioning versus muscle spasm. Anatomic alignment and positioning of the vertebral bodies and posterior elements is noted. The atlantoaxial joint and craniovertebral articulations are normal without evidence of subluxation. There is no prevertebral soft tissue swelling. The thyroid gland and visualized portions of the lung apices and mediastinum are unremarkable. IMPRESSION: 1. No acute visible fracture or dislocation. 2. Straightening of the normal cervical curvature which may be secondary to patient positioning versus muscle spasm. Head CT 06/02/23 11:31 IMPRESSION: No acute intracranial pathology. EXAMINATION: Noncontrast CT scan of the cervical spine. INDICATION: Head strike COMPARISON: None. TECHNIQUE: Helical, multidetector axial images were obtained from the occiput to the upper thorax. Coronal and sagittal reformats of the cervical spine were provided for interpretation. DLP: 934 mGy-cm FINDINGS: No acute fractures or dislocations of the cervical spine are seen. Straightening of the normal cervical curvature which may be secondary to patient positioning versus muscle spasm. Anatomic alignment and positioning of the vertebral bodies and posterior elements is noted. The atlantoaxial joint and craniovertebral articulations are normal without evidence of subluxation. There is no prevertebral soft tissue swelling. The thyroid gland and visualized portions of the lung apices and mediastinum are unremarkable. IMPRESSION: 1. No acute visible fracture or dislocation. 2. Straightening of the normal cervical curvature which may be secondary to patient positioning versus muscle spasm. Chest X-Ray 06/02/23 14:07 IMPRESSION: Interval placement of right-sided central venous catheter with its distal tip terminating at the atrial caval junction. Abdomen/Pelvis CT 06/02/23 16:56 IMPRESSION: 1. Hepatosplenomegaly. 2. Mild nonspecific periportal edema. Assessment and Plan (1) Nausea & vomiting: Qualifiers: Vomiting type: unspecified Qualified Code(s): R11.2 - Nausea with vomiting, unspecified Status: Acute (2) UTI (urinary tract infection): Qualifiers: Urinary tract infection type: acute cystitis Status: Acute Plan Pt is a 33-year-old female with a PMH significant for?opioid use disorder, IVDU, and migraines who presents to the ED for evaluation of nausea, vomiting, and headache since hitting her head 2 days ago. Pt will be admitted to the hospital under observation for treatment further evaluation of intractable nausea and vomiting. Intractable nausea and vomiting Patient unable to tolerate p.o. x2 days Due to poor vein access central line was placed in the ED Will treat with antiemetics, capsaicin cream Will place on maintenance fluids Clear liquid diet for now, advance as tolerated Follow BMP UTI UA positive for leukocyte esterase and WBC >50 Will treat with ceftriaxone, started 06/02/2023 Patient does not meet sepsis criteria no tachycardia tachypnea fever, leukocytosis or leukopenia Transaminase/hepatomegaly Unable to obtain history of alcohol use from patient Will check hepatitis panel Polysubstance use disorder Patient history of IVDU Tox screen positive for opiates, fentanyl, cocaine, and marijuana Will check for HIV Addiction medicine consult Full Code Attending:?Dr. Faustin DVT Prophylaxis: Lovenox Patient will be admitted to the hospital under observation for treatment further evaluation of intractable nausea and vomiting. Patient will require hospitalization due to central line placement as patient can not tolerate p.o. Quality Stroke Does the patient have a stroke diagnosis?: No VTE Prior VTE?: No VTE Risk Level:: Medical - moderate - high VTE Device Contraindication: Treatment Not Indicated VTE Drug Contraindication: N/A - Med Ordered
--- NOTE | 2023-06-03 00:13 | PC.NURSE ---
Assumed care of pt. Pt lying on stretcher, eyes closed, respirations even and unlabored. IV patent, no fluids running at this time. Continuing plan of care for admission.
[2023-06-03 02:38] VITALS: BP 94/41; PULSE 63; RESP 15; O2SAT 98
[2023-06-03] MEDS: Enoxaparin Sodium 40 MG/0.4 ML SYRINGE SUBCUT (03:12)
[2023-06-03] MEDS: 0.9 % Sodium Chloride 1,000 ML 100 ML IVCONT (03:12)
--- NOTE | 2023-06-03 08:08 | PC.NURSE ---
PT IS ASKING T ADVANCE HER DIET. SHE STATES SHE IS TOLERATING PO LIQUIDS
--- NOTE | 2023-06-03 08:13 | PC.NURSE ---
PT IS EXTREMELY UPSET ABOUT HER CLEAR LIQUID DIET. PT'S FAMILY MEMBER BROUGHT COFFEE IN AND SHE IS DRINKING THE COFFEE. AWARE.
[2023-06-03 08:18] LABS: HBsAGNum1 0.41 S/CO (0.00-0.99)
[2023-06-03 08:19] LABS: Hepatitis B Surface Antigen Negative (Negative)
[2023-06-03 08:40] LABS: HBc Num1 0.23 S/CO (0.00-0.79); HIV AB/AG Nonreactive (Nonreactive); HIV Num 1 0.07 S/CO (0.00-0.99); Hepatitis A Antibody IgM 0.44 Index (0-0.79); Hepatitis B Core Antibody Nonreactive (Nonreactive); ~HepC Num1 12.33 S/CO (0.00-0.79); ~Hepatitis A Antibody IgM Nonreactive (Nonreactive); ~Hepatitis B Surface Antibody REACTIVE (Nonreactive); ~Hepatitis C Antibody Reactive (Nonreactive)
[2023-06-03 08:40] LABS: Anion Gap 11 (12-20); Blood Urea Nitrogen 8 mg/dL (9-16); Calcium 8.5 mg/dL (8.4-10.2); Carbon Dioxide 25 mmol/L (22-29); Chloride 107 mmol/L (96-108); Creatinine Clr Calc Pharmacy 127.7; Estimated Glomerular Filt Rate > 60; Glucose Random 83 mg/dL (60-115); Potassium 3.5 mmol/L (3.3-5.1); Sodium 139 mmol/L (135-145)
[2023-06-03 09:31] VITALS: BP 101/63; PULSE 71; RESP 13; TEMP 36.5; O2SAT 99
[2023-06-03] MEDS: hydrOXYzine HCL 25 MG TABLET PO (09:33)
[2023-06-03] MEDS: 0.9 % Sodium Chloride Flush 3 ML SYRINGE IVFLUSH (09:33)
--- NOTE | 2023-06-03 10:39 | MHC.CM.PN ---
CM RECEIVED MESSAGE PT NOW INPT NO LONGER OBS, NO IMM NEEDED D/T MEDICAID.
--- NOTE | 2023-06-03 11:01 | P.DS_ITS ---
DS: Providers Provider Date of Service: 06/03/23 Date of admission: 06/03/23 08:33 Primary care physician: None Physician Consults: 06/02/23 22:58 Addiction Medicine Routine Consulting Provider: Addiction Covering Reason for consultation: IVDU DS: Diagnosis Discharge Diagnosis (1) Nausea & vomiting: Status: Acute (2) UTI (urinary tract infection): Status: Acute DS: Summary Hospital Course Hospital Course: History of presenting illness: Date of Service: 06/02/23 Attending physician on admission: Mirna Greer Chief Complaint: Intractable nausea, vomiting, headache Pt is a 33-year-old female with a PMH significant for?opioid use disorder, IVDU, and migraines who presents to the ED for evaluation of nausea, vomiting, and headache since hitting her head 2 days ago. Patient is somnolent but arousable at time of interview and exam, flight immediately back asleep when awoken. Patient is unable to answer any questions provide any other details than stating she has had nausea and vomiting ?for a long time?. HPI thus obtained from chart and provider review. Patient apparently reported she was cleaning at home 2 days prior when she tripped and struck her head on a kitchen cabinet. Experienced a brief moment of LOC, and since then has had lightheadedness, dizziness, weakness, fatigue and occasional SOB and unspecified chest pain. Due to persistent nausea and vomiting, has been unable to tolerate p.o. since incident. ? In the ED pt's BP was as low as 85/50, vitals otherwise WNL. Labs were significant for H&H 9.7/29.1, AST 76, and ALT 94. Otherwise grossly unremarkable. No electrolyte abnormalities. Renal function WNL. UA positive for leukocyte esterase and WBC >50. Tox screen positive for opiates, fentanyl, cocaine, and marijuana. CT?of head showed no acute intracranial pathology. CT of cervical spine showed no acute visible fracture or dislocation. CT of abdomen and pelvis found hepatosplenomegaly and mild nonspecific periportal edema. EKG demonstrated sinus bradycardia with sinus arrhythmia and prolonged QT of 483. Pt was treated with ondansetron, methadone, lidocaine, IVF, lorazepam, diphenhydramine, and ceftriaxone. Pt will be admitted to the hospital under observation for treatment further evaluation of intractable nausea and vomiting. Hospital course Intractable nausea vomiting. 33-year-old female with a PMH significant for?opioid use disorder, IVDU, and migraines who presents to the ED for evaluation of nausea, vomiting, and headache since hitting her head 2 days ago. Patient admitted to [facility] with a diagnosis of intractable nausea vomiting likely due to concussion and due to opioid use,patient treated with IV fluids, antiemetics, her nausea vomiting resolved rapidly with above treatment, she is tolerating regular diet, she was noted to have elevated LFTs hepatitis panel showed reactive hepatitis-C antibody and nonreactive HIV, patient has been recommended to rest, avoid strenuous activity, drink plenty of fluids and return to check if noted to have confusion ,recurrent episodes of nausea ,vomiting ,irritability, visual symptoms or restlessness. She is recommended outpatient follow-up with primary care physician and Gastroenterology for treatment of hep C. Polysubstance use disorder, Tox screen positive for opiates, fentanyl, cocaine, and marijuana, patient evaluated by Addiction Medicine and has been continued on methadone 70 mg daily and Neurontin as needed for pain, patient has been given a prescription of Neurontin 300 mg t.i.d. total # 60 dispensed. Tobacco use disorder patient declined nicotine replacement therapy. Time Attestation Discharge Coordination Time (in mins): 35 Quality: Safe Use of Opioids Does Pt have an Active Cancer Diagnosis on the Problem List?: No Quality: Stroke Does the patient have a stroke diagnosis?: No Physical Exam Vital Signs: Vital Signs: Last Vital Signs Temp 97.7 F 06/03/23 09:31 Pulse 71 06/03/23 09:31 Resp 13 06/03/23 09:31 BP 101/63 06/03/23 09:31 Pulse Ox 99 06/03/23 09:31 O2 Del Method Room Air 06/03/23 09:31 BMI result Body Mass Index 21.3 Const: Other: General awake alert x3, resting comfortably in no acute distress. Anicteric sclera Neck supple no JVD. CVS regular rate rhythm, Respiratory lungs clear to auscultation, no respiratory distress, no wheeze, no rhonchi. Gastrointestinal abdomen soft, non tender, bowel sounds audible, o guarding , no rigidity. Extremities no edema. Neuro nonfocal Skin Multiple track no on dorsal aspect of hands bilaterally. DS: Data Data Completed and Pending Labs on day of discharge: Laboratory Results - last 24 hr 06/02/23 06/02/23 06/02/23 12:16 16:03 17:17 WBC 4.0 L RBC 3.44 L Hgb 9.7 L Hct 29.1 L MCV 84.6 MCH 28.2 MCHC 33.3 RDW 16.8 H Plt Count 174 MPV 8.9 L Immature Gran % (Auto) 0.2 Neut % (Auto) 44.6 L Lymph % (Auto) 42.6 H [place] % (Auto) 12.2 H Eos % (Auto) 0.2 Baso % (Auto) 0.2 Lymph # (Auto) 1.7 [place] # (Auto) 0.5 Eos # (Auto) 0.0 Baso # (Auto) 0.0 Abs Immat Gran (auto) 0.01 Absolute Neuts (auto) 1.8 L Absolute Nucleated RBC 0.000 Nucleated RBC % (auto) 0.0 Sodium 136 Potassium 3.8 Chloride 105 Carbon Dioxide 26 Anion Gap 9 L BUN 9 Creatinine 0.61 Estim Creat Clear Calc 134.0 Estimated GFR > 60 Random Glucose 106 Lactic Acid 0.7 Calcium 8.9 Magnesium 2.0 Total Bilirubin 0.4 AST 76 H ALT 94 H Alkaline Phosphatase 72 Total Protein 7.6 Albumin 3.5 Beta HCG, Quant < 2 Urine Color Yellow Urine Appearance Clear Urine pH 7.5 Ur Specific [place] >= 1.030 H Urine Protein Trace Urine Glucose (UA) Negative Urine Ketones Negative Urine Blood Negative Urine Nitrite Negative Ur Leukocyte Esterase Small (1+) H Urine RBC 0-2 Urine WBC >50 H Ur Squamous Epith Cells 6-10 Urine Bacteria None Seen Hyaline Casts 0-2 Urine Opiates Screen POSITIVE H Urine Fentanyl Screen POSITIVE H Ur Barbiturates Screen Not Detected Ur Phencyclidine Scrn Not Detected Ur Amphetamines Screen Not Detected U Benzodiazepines Scrn Not Detected Urine Cocaine Screen POSITIVE H U Marijuana (THC) Screen POSITIVE H Hepatitis A IgM Ab Hep Bs Antigen Hep Bs Antibody Hep B Core Total Ab Hepatitis C Ab (EIA) HIV 1&2 Ab/P24 Ag 4thGn Influenza Type A (PCR) NEGATIVE Influenza Type B (PCR) NEGATIVE RSV RNA Qual (PCR) NEGATIVE SARS-CoV-2 RNA (RT-PCR) NEGATIVE 06/02/23 06/03/23 23:36 08:04 WBC RBC Hgb Hct MCV MCH MCHC RDW Plt Count MPV Immature Gran % (Auto) Neut % (Auto) Lymph % (Auto) [place] % (Auto) Eos % (Auto) Baso % (Auto) Lymph # (Auto) [place] # (Auto) Eos # (Auto) Baso # (Auto) Abs Immat Gran (auto) Absolute Neuts (auto) Absolute Nucleated RBC Nucleated RBC % (auto) Sodium 139 Potassium 3.5 Chloride 107 Carbon Dioxide 25 Anion Gap 11 L BUN 8 L Creatinine 0.64 Estim Creat Clear Calc 127.7 Estimated GFR > 60 Random Glucose 83 Lactic Acid Calcium 8.5 Magnesium Total Bilirubin AST ALT Alkaline Phosphatase Total Protein Albumin Beta HCG, Quant Urine Color Urine Appearance Urine pH Ur Specific [place] Urine Protein Urine Glucose (UA) Urine Ketones Urine Blood Urine Nitrite Ur Leukocyte Esterase Urine RBC Urine WBC Ur Squamous Epith Cells Urine Bacteria Hyaline Casts Urine Opiates Screen Urine Fentanyl Screen Ur Barbiturates Screen Ur Phencyclidine Scrn Ur Amphetamines Screen U Benzodiazepines Scrn Urine Cocaine Screen U Marijuana (THC) Screen Hepatitis A IgM Ab Nonreactive Hep Bs Antigen Negative Hep Bs Antibody REACTIVE Hep B Core Total Ab Nonreactive Hepatitis C Ab (EIA) Reactive H HIV 1&2 Ab/P24 Ag 4thGn Nonreactive Influenza Type A (PCR) Influenza Type B (PCR) RSV RNA Qual (PCR) SARS-CoV-2 RNA (RT-PCR) Discharge Plan Discharge Anticipated Discharge Date/Time: 06/03/23 10:56 Patient Disposition: Home, Self-Care Discharge Diagnosis: Intractable nausea vomiting Concussion Referrals: Physician,None [Primary Care Provider] - 1 Week Discharge Medications: Continued methadone [Methadone Intensol] 10 mg/mL Concentrate 70 mg PO DAILY trazodone 50 mg tablet 50 mg PO BEDTIME PRN (Reason: Insomnia) hydroxyzine HCl 25 mg tablet 25 mg PO TID gabapentin 300 mg capsule 300 mg PO TID PRN (Reason: Pain) Qty: 60 0RF Discharge Orders: Discharge Order (Routine); Ordered 06/03/23 Ordered By: Josefina Fraga Diet: Advance to usual diet Activity on Discharge: rest Care Plan Goals: Recommend resting, no strenuous activity, fluids Returned to check with recurrent headache, irritability, recurrent nausea ,vomiting or confusion Nausea vomiting resolved Health Concerns: Polysubstance use disorder Continue all home medications Plan of Treatment: Outpatient follow-up with primary care physician call for appointment Assessment: As above
--- NOTE | 2023-06-03 11:20 | MHC.CM.PN ---
Addendum entered by Sheila Dey RN 06/03/23 11:33: RECOVERY NURSE NOTIFIED VIA [employer] PT HAS ADDICTION MEDICINE CONSULT, REC NURSE WILL MEET W/PT PRIOR TO DC. Original Note: EMR REVIEWED, PT ADMITTED W/INTRACTABLE NV, CM MET W/PT WHO IS PLEASANT HOWEVER VERY ANXIOUS TO DC, PT REPORTS SHE LIVES W/S.O. RIGOBERTO, PT IS INDEP W/ALL CARE AND DENIES USE OF DME/SERVICES, PT REPORTS SHE IS WORKING ON GETTING HER MENTAL HEALTH AND SA TX TRANSFERRED HERE SHE IS NEW TO AREA, PT ALSO REPORTS SHE HAS A NEW PCP APPT THIS WEDNESDAY HOWEVER DOES NOT RECALL NAME OF PROVIDER. PT EDUCATED ON AND COMPLETED A HCP NAMING HER MOTHER MARIAN DENNIS [phone] HER HCA AND S.O. RIGOBERT[address] BRIAN [phone] HER ALTERNATE, COPY UPLOADED TO [facility] AND PLACED IN ED CHART. ANTIC PT WILL DC TODAY AFTER TOLERATING DIET, PT WILL ARRANGE TRANSPORT
--- NOTE | 2023-06-03 11:45 | PC.NURSE ---
FAMILY MEMBER BROUGHT IN FOOD FROM DD, PT ATE/DRANK AND YAMILA WELL SO FAR.
[2023-06-03] MEDS: methADONE HCl 20 MG/2 ML ORAL.CONC 70 MG PO (11:55)
[2023-06-03 12:16] VITALS: BP 129/87; PULSE 70; RESP 12; TEMP 36.7; O2SAT 99
[2023-06-03] MEDS: Capsaicin 0.025% Cream 60 GM TUBE 1 APPL TOPICAL (12:25)
--- NOTE | 2023-06-03 12:36 | MHC.RECOVRN ---
Met with pt in ED18 after Addiction Medicine consult placed. Pt had presented to the ED after falling and hitting head. Since fall reported headache and vomiting. Upon evaluation, pt admitted with nausea/vomiting and UTI. Pt sitting in bed, awake, alert, easily engages in conversation, anxious to discharge. Pt is currently on 70 mg methadone daily through [facility] in [place]. Pt recently completed ATS and CSS on 05/30. Pt plans to attend IOP and 90 meetings in 90 days. Pt provided with written resources if needed. Denies questions or concerns for t/w.
--- NOTE | 2023-06-03 12:53 | PC.NURSE ---
TRIPLE LUMEN D/C'D BY .
[2023-06-03 12:55] VITALS: BP 129/87; PULSE 70; RESP 12; TEMP 36.7; O2SAT 99
--- NOTE | 2023-06-05 11:36 | PC.NURSE ---
HODA Aviles from [facility] in [place] ([phone] called to verify last Methadone dose.
== END 2023-06-03 13:00 | disposition home or self-care (01) | DRG 57 ==
LOC: HO.ED 18:36 → HO.EDOVER 23:12
PROVIDERS: Physician Assistant Medical; Admitting Provider Student in an Organized Health Care Education/Training Program; Emergency Provider Emergency Medicine; Visit Provider Hospitalist
DX: S06.0X1A Concussion with loss of consciousness of 30 minutes or less, initial encounter (principal); F11.20 Opioid dependence, uncomplicated; W01.198A Fall on same level from slipping, tripping and stumbling with subsequent striking against other object, initial encounter; F17.210 Nicotine dependence, cigarettes, uncomplicated; N39.0 Urinary tract infection, site not specified; F19.10 Other psychoactive substance abuse, uncomplicated; Z71.6 Tobacco abuse counseling; Z20.822 Contact with and (suspected) exposure to COVID-19; Z79.899 Other long term (current) drug therapy
CPT/HCPCS: 0241U; 36415; 70450; 71045; 72125; 74177; 80048; 80053; 80307; 81001; 83605; 83735; 84702; 85025; 86704; 86706; 86709; 86803; 87040; 87086; 87340; 87389; 93005; 99285; J0696; J1200; J1650; J2060; Q9967

== ENCOUNTER → 2023-06-02 12:49 | Outpatient (BNV) | payer OTHER, SELFPAY | PROVIDERS: Emergency Provider Emergency Medicine; Visit Provider Internal Medicine | DX: R00.1 Bradycardia, unspecified (principal); I45.81 Long QT syndrome | CPT/HCPCS: 93010 ==

== ENCOUNTER → 2023-06-03 08:33 | Outpatient (BNV) | payer OTHER, SELFPAY | PROVIDERS: Admitting Provider Student in an Organized Health Care Education/Training Program; Emergency Provider Emergency Medicine; Visit Provider Hospitalist | DX: R11.2 Nausea with vomiting, unspecified (principal); N39.0 Urinary tract infection, site not specified | CPT/HCPCS: 99222; 99239 ==

== ENCOUNTER 2023-09-28 18:47 | Emergency (ER) | payer OTHER, SELFPAY ==
[2023-09-28 19:49] VITALS: BP 153/93; PULSE 93; RESP 18; TEMP 36.8; O2SAT 100; BMI 19.0
--- NOTE | 2023-09-28 19:49 | ED_ITS ---
HPI - Nausea/Vomiting/Diarrhea General Chief complaint: Abdominal Pain Stated complaint: abdominal pain Related Data Home Medications ?Medication ?Instructions ?Recorded ?Confirmed methadone 10 mg/mL oral 70 mg PO DAILY 01/04/23 06/03/23 concentrate (Methadone Intensol) hydroxyzine HCl 25 mg tablet 25 mg PO TID 06/02/23 06/02/23 trazodone 50 mg tablet 50 mg PO BEDTIME PRN Insomnia 06/02/23 06/02/23 Previous Rx's ?Medication ?Instructions ?Recorded gabapentin 300 mg capsule 300 mg PO TID PRN Pain #60 caps 06/03/23 Allergies Allergy/AdvReac Type Severity Reaction Status Date / Time No Known Allergies Allergy Verified 09/28/23 19:51 [No Known Allergies*] PMFSH Past Medical History Medical History Scoliosis Hepatitis C Social History Social History Alcohol intake: current Alcohol intake frequency: a few times a month Patient Tobacco Use Status: Current everyday Tobacco user Substance Use Type: Crack/Cocaine, Heroin and Marijuana Do you have a plan to hurt others: No Plan service: No Physical Exam 2 Vital Signs: Vital Signs: Last Vital Signs Temp 98.2 F 09/28/23 19:49 Pulse 93 09/28/23 19:49 Resp 18 09/28/23 19:49 BP 153/93 H 09/28/23 19:49 Pulse Ox 100 09/28/23 19:49 O2 Del Method Room Air 09/28/23 19:49 BMI result Body Mass Index 19.0 Course Course Course Narrative: This is a Rapid Medical Examination (RME) performed by Judy Raymundo PA-C in triage. Full HPI, ROS, assessment and treatment plan per primary provider in the Main ED. 33 yo female with history of N/V/D for the last 4 days. Was at Urgent Care today and had LUQ pain so was told to come to the ER for evaluation. Last vomiting episode was 4 days ago but still having diarrhea. No known sick contacts. No blood in stool, stool is orange in color. No fevers. No current abdominal pain. Was on antibiotics x2 recently for her tooth and skin infection on the ear. in triage patient is not in any distress. lungs are CTAB and RRR on exam. abd is flat, soft, with no abdominal tenderness. no rebound or guarding. Plan: Labs, UA, Upreg, Check Cdiff Reevaluation(s) Reevaluation #1: patient left without completing treatment after submitting stool sample. Time: 20:39 Medical Decision Making Lab Data 09/28/23 19:45 09/28/23 19:45 Labs: Lab Results 09/28/23 Range/Units 19:45 WBC 4.8 (4.8-10.8) X10*3/uL RBC 4.22 D (4.20-5.50) X10*6/uL Hgb 11.8 L D (12.0-16.0) g/dl Hct 36.4 L D (37.0-47.0) % MCV 86.3 (80.0-98.0) fL MCH 28.0 (27.0-33.0) pg MCHC 32.4 (31.0-35.0) g/dl RDW 16.2 H (11.0-16.0) % Plt Count 273 D (160-400) X10*3/uL MPV 8.7 L (9.4-12.3) fL Immature Gran % (Auto) 0.0 (0.0-0.4) % Neut % (Auto) 29.8 L (45-73) % Lymph % (Auto) 60.3 H (20-40) % [place] % (Auto) 9.3 (2-11) % Eos % (Auto) 0.4 (0-4) % Baso % (Auto) 0.2 (0-2) % Lymph # (Auto) 2.9 (1.2-4.9) X10*3/uL [place] # (Auto) 0.5 (0.1-1.2) X10*3/uL Eos # (Auto) 0.0 (0.0-0.4) X10*3/uL Baso # (Auto) 0.0 (0.0-0.2) X10*3/uL Abs Immat Gran (auto) 0.00 (0.00-0.03) X10*3/uL Absolute Neuts (auto) 1.4 L (2.0-8.3) x10*3/uL Absolute Nucleated RBC 0.000 (0.0-0.012) X10*3/uL Nucleated RBC % (auto) 0.0 (0.0-0.2) /100WBC Smear Tech's Comments VERIFIED Sodium 136 (135-145) mmol/L Potassium 3.7 (3.3-5.1) mmol/L Chloride 103 (96-108) mmol/L Carbon Dioxide 25 (22-29) mmol/L Anion Gap 12 (12-20) BUN 9 (9-16) mg/dL Creatinine 0.84 (0.5-1.4) mg/dL Estim Creat Clear Calc 86.8 Estimated GFR > 60 Random Glucose 90 (60-115) mg/dL Calcium 9.6 D (8.4-10.2) mg/dL Magnesium 2.1 (1.6-2.6) mg/dL Total Bilirubin 0.3 (0.0-1.0) mg/dL Direct Bilirubin 0.1 (0.0-0.5) mg/dL AST 26 (5-31) U/L ALT 21 (0-31) U/L Alkaline Phosphatase 104 (39-117) U/L Total Protein 9.3 H (6.5-8.0) g/dL Albumin 4.3 (3.5-5.0) g/dL Lipase 18 (8-78) U/L Discharge Plan Discharge Clinical Impression: Diarrhea Patient Disposition: Left W/O Completing Treatment Prescriptions: No Action methadone [Methadone Intensol] 10 mg/mL Concentrate 70 mg PO DAILY trazodone 50 mg tablet 50 mg PO BEDTIME PRN (Reason: Insomnia) hydroxyzine HCl 25 mg tablet 25 mg PO TID gabapentin 300 mg capsule 300 mg PO TID PRN (Reason: Pain) Qty: 60 0RF Print Language: Kinyarwanda
[2023-09-28 19:52] LABS: Basophils Percent Auto 0.2 % (0-2); Eosinophils Percent Auto 0.4 % (0-4); Hematocrit 36.4 % (37.0-47.0); Hemoglobin 11.8 g/dl (12.0-16.0); Lymphocytes Absolute Auto 2.9 X10*3/uL (1.2-4.9); Lymphocytes Percent Auto 60.3 % (20-40); MANUAL DIFF FLAG SCAN; Mean Corpuscular HGB Conc 32.4 g/dl (31.0-35.0); Mean Corpuscular Volume 86.3 fL (80.0-98.0); Mean Platelet Volume 8.7 fL (9.4-12.3); Monocytes Absolute Auto 0.5 X10*3/uL (0.1-1.2); Monocytes Percent Auto 9.3 % (2-11); Neutrophils Absolute Auto 1.4 x10*3/uL (2.0-8.3); Neutrophils Percent Auto 29.8 % (45-73); Platelet Count 273 X10*3/uL (160-400); Red Blood Count 4.22 X10*6/uL (4.20-5.50); Red Cell Distribution Width 16.2 % (11.0-16.0); SCAN SMEAR FLAG 1; White Blood Count 4.8 X10*3/uL (4.8-10.8)
[2023-09-28 20:04] LABS: Alanine Aminotransferase 21 U/L (0-31); Albumin Level 4.3 g/dL (3.5-5.0); Alkaline Phosphatase 104 U/L (39-117); Anion Gap 12 (12-20); Aspartate Amino Transferase 26 U/L (5-31); Bilirubin Direct 0.1 mg/dL (0.0-0.5); Bilirubin Total 0.3 mg/dL (0.0-1.0); Blood Urea Nitrogen 9 mg/dL (9-16); Calcium 9.6 mg/dL (8.4-10.2); Carbon Dioxide 25 mmol/L (22-29); Chloride 103 mmol/L (96-108); Creatinine Clr Calc Pharmacy 86.8; Estimated Glomerular Filt Rate > 60; Glucose Random 90 mg/dL (60-115); Lipase 18 U/L (8-78); Magnesium 2.1 mg/dL (1.6-2.6); Potassium 3.7 mmol/L (3.3-5.1); Sodium 136 mmol/L (135-145); Total Protein 9.3 g/dL (6.5-8.0)
[2023-09-28 20:13] LABS: SLIDE REVIEW VERIFIED
--- NOTE | 2023-09-28 20:39 | PC.NURSE ---
Pt mother notified hotel front office manager they were leaving, did not notify this RN.
== END 2023-09-28 20:46 | disposition left against medical advice (07) ==
PROVIDERS: Physician Assistant; Emergency Provider Emergency Medicine
DX: R19.7 Diarrhea, unspecified (principal); R10.12 Left upper quadrant pain; F11.20 Opioid dependence, uncomplicated; F12.90 Cannabis use, unspecified, uncomplicated; F17.210 Nicotine dependence, cigarettes, uncomplicated
CPT/HCPCS: 36415; 80048; 80076; 83690; 83735; 85025; 99281; 99283

== ENCOUNTER 2023-11-21 11:46 | Emergency (ER) | payer SELFPAY ==
--- NOTE | ~2023-11-21 | US_ITS ---
EXAMINATION: US TRIPLEX LOWER EXTREMITY, LEFT CLINICAL INFORMATION: Left lower leg pain and swelling COMPARISON: None available. TECHNIQUE: Color-flow triplex imaging with spectral analysis and compression Doppler were performed on the left lower extremity. FINDINGS: Respiratory variation, normal compression and augmented flow are noted throughout the left lower extremity. The visualized common femoral vein, superficial femoral vein, profunda femoral vein, popliteal vein and midcalf peroneal and posterior tibial venous segments show no evidence of deep venous thrombosis. There is no Schroeder's cyst. In the region of pain at the medial distal thigh there is hypoechoic occlusive thrombus within the great saphenous vein with mild reactive changes in the surrounding soft tissue compatible thrombophlebitis. There is also on vitamin of an adjacent varicose vein. US/US venous duplex LE IMPRESSION: No evidence of deep venous thrombosis involving the left lower extremity. Thrombus/thrombophlebitis at the midportion of the left great saphenous vein extending to the level of the proximal calf. Electronically signed by: Ry Luna MD 11/21/2023 01:16 PM EDT
[2023-11-21 11:53] VITALS: BP 168/98; PULSE 109; RESP 19; TEMP 36.6; O2SAT 99; BMI 19.8
--- NOTE | 2023-11-21 11:54 | ED.GENADULT ---
HPI - General Adult General Chief complaint: Extremity Injury, Lower Stated complaint: Redness/hardness behind L knee Time Seen by Provider: 11/21/23 13:48 Source: patient Mode of arrival: ambulatory Limitations: no limitations History of Present Illness ED Provider: Dr. Mihir Ortiz HPI narrative: 33-year-old female with a history substance use disorder on methadone, migraine headaches who presents emergency department for evaluation of pain and swelling of her left medial calf and thigh. Patient states that the symptoms started 2 days prior. She states she has had cellulitis in the past and she was concerned that she may have cellulitis at this time. She also states she feels a lump over the area of redness. She denied fever, chills, chest pain, shortness of breath or dyspnea on exertion. She denied nausea, vomiting fatigue or weakness. Related Data Home Medications ?Medication ?Instructions ?Recorded ?Confirmed methadone 10 mg/mL oral 70 mg PO DAILY 01/04/23 06/03/23 concentrate (Methadone Intensol) hydroxyzine HCl 25 mg tablet 25 mg PO TID 06/02/23 06/02/23 trazodone 50 mg tablet 50 mg PO BEDTIME PRN Insomnia 06/02/23 06/02/23 Previous Rx's ?Medication ?Instructions ?Recorded gabapentin 300 mg capsule 300 mg PO TID PRN Pain #60 caps 06/03/23 cephalexin 500 mg capsule 500 mg PO QID 7 days #28 caps 11/21/23 fluconazole 150 mg tablet 150 mg PO Q3D 2 doses #2 tabs 11/21/23 Allergies Allergy/AdvReac Type Severity Reaction Status Date / Time No Known Allergies Allergy Verified 11/21/23 11:55 [No Known Allergies*] Review of Systems Review of Systems: Yes all other systems are reviewed and are negative FORMERLY [facility], [facility] Past Medical History Medical History Scoliosis Hepatitis C Social History Social History Alcohol intake: current Alcohol intake frequency: a few times a month Patient Tobacco Use Status: Current everyday Tobacco user Substance Use Type: Crack/Cocaine, Heroin and Marijuana Advance Directives: No Advance Directives Information Provided: No Do you have a plan to hurt others: No Plan service: No Physical Exam ED Vital Signs: Vital Signs - 24 hr 11/21/23 11:53 11/21/23 13:05 11/21/23 14:38 Temperature 98 F 97.7 F 97.8 F Pulse Rate 109 H 90 69 Respiratory Rate 19 18 18 Blood Pressure 168/98 H 124/77 120/76 Pulse Oximetry 99 100 98 Oxygen Delivery Method Room Air Room Air 11/21/23 14:41 Temperature 97.8 F Pulse Rate 69 Respiratory Rate 18 Blood Pressure 120/76 Pulse Oximetry 98 Oxygen Delivery Method Room Air BMI result Body Mass Index 19.8 Vital signs did reveal an elevated blood pressure of 168/98 and elevated heart rate of 109. Exam: General: Awake, alert in no distress Head: Normocephalic, atraumatic EENT: PERRL, Lids normal, sclera normal, conjunctiva normal, nose normal , ears normal, throat without erythema or exudates Lung: breath sounds symmetric, no wheezing, rales or rhonchi Chest: symmetric movement, nontender Heart: regular rate and rhythm, normal S1, S2 no murmurs or rubs Abdomen: soft, non-tender, nondistended, normal bowel sounds Extremities: Patient has linear erythema with increased warmth and tenderness over the over the left medial thigh in the area of the greater saphenous vein where it crosses the knee. Patient's extremities appear symmetric otherwise Course Course Course Narrative: RME performed by Laurence Ly PA-C. Patient is a 33 year old assigned female at presenting to the emergency department with left lower leg redness / swelling. Patient has history of IVDU but has not used there. Detailed physical exam and review of systems are deferred to the primary care provider. Labs ordered. Patient placed back in the waiting room pending room availability and results. Medical Decision Making Medical Decision Making MDM Narrative: 33-year-old female with a history substance use disorder on methadone, migraine headaches who presents emergency department for evaluation of pain and swelling of her left medial calf and thighX2 days with no systemic symptoms. patient states she has had similar symptoms in the past when she has had cellulitis. Physical examination revealed an elevated blood pressure of 160/98 and elevated heart rate of 109. exam did reveal erythema with increased warmth and firmness along the left medial thigh. Differential diagnosis: Includes but is not limited to Cellulitis, thrombophlebitis, DVT, electrolyte abnormalities, anemia Course: Laboratory evaluation revealed an elevated ESR and CRP with a normal WBC otherwise was unremarkable. Patient's duplex ultrasound of her left lower extremity revealed no DVT but she does have inflammatory changes and a thrombus along the greater saphenous vein in the area where she has a cellulitis. These findings are consistent with superficial thrombophlebitis and do not require anticoagulation. I did discuss this with the patient. Patient was advised to take Tylenol and ibuprofen for pain. Patient was started on doxycycline 100 mg q.12 hours x5 days to treat possible cellulitis. patient was given printed and verbal instructions and discharged home. Admission/Observation Consideration of admission/observation: Escalation of care including admission/observation considered Lab Data MDM Lab Attestation statement: I reviewed the patient's lab results. My interpretation patient's laboratory evaluation is as follows: WBC was normal. CMP was normal. 11/21/23 12:11 11/21/23 12:11 Labs: Lab Results 11/21/23 Range/Units 12:11 WBC 5.2 (4.8-10.8) X10*3/uL RBC 4.61 (4.20-5.50) X10*6/uL Hgb 12.8 (12.0-16.0) g/dl Hct 39.7 (37.0-47.0) % MCV 86.1 (80.0-98.0) fL MCH 27.8 (27.0-33.0) pg MCHC 32.2 (31.0-35.0) g/dl RDW 15.0 (11.0-16.0) % Plt Count 232 (160-400) X10*3/uL MPV 9.4 (9.4-12.3) fL Immature Gran % (Auto) 0.4 (0.0-0.4) % Neut % (Auto) 62.5 (45-73) % Lymph % (Auto) 29.7 (20-40) % [place] % (Auto) 6.8 (2-11) % Eos % (Auto) 0.2 (0-4) % Baso % (Auto) 0.4 (0-2) % Lymph # (Auto) 1.5 (1.2-4.9) X10*3/uL [place] # (Auto) 0.4 (0.1-1.2) X10*3/uL Eos # (Auto) 0.0 (0.0-0.4) X10*3/uL Baso # (Auto) 0.0 (0.0-0.2) X10*3/uL Abs Immat Gran (auto) 0.02 (0.00-0.03) X10*3/uL Absolute Neuts (auto) 3.2 (2.0-8.3) x10*3/uL Absolute Nucleated RBC 0.000 (0.0-0.012) X10*3/uL Nucleated RBC % (auto) 0.0 (0.0-0.2) /100WBC ESR 46 H (0-20) MM/HR Sodium 137 (135-145) mmol/L Potassium 4.3 (3.3-5.1) mmol/L Chloride 102 (96-108) mmol/L Carbon Dioxide 24 (22-29) mmol/L Anion Gap 15 (12-20) BUN 11 (9-16) mg/dL Creatinine 0.78 (0.5-1.4) mg/dL Estim Creat Clear Calc 97.2 Estimated GFR > 60 Random Glucose 107 (60-115) mg/dL Calcium 9.6 (8.4-10.2) mg/dL Magnesium 2.0 (1.6-2.6) mg/dL Total Bilirubin 0.4 (0.0-1.0) mg/dL AST 30 (5-31) U/L ALT 27 (0-31) U/L Alkaline Phosphatase 96 (39-117) U/L C-Reactive Protein 2.84 H (< or = 0.50) mg/dL Total Protein 9.1 H (6.5-8.0) g/dL Albumin 4.0 (3.5-5.0) g/dL Independent Interpretation I performed an independent interpretation of an: Ultrasound Radiology Impression Discussion of test interpretation with radiology: I have reviewed the radiologist's reading. Radiologist Impression: IMPRESSION: No evidence of deep venous thrombosis involving the left lower extremity. Thrombus/thrombophlebitis at the midportion of the left great saphenous vein extending to the level of the proximal calf. Electronically signed by: Ry Luna MD 11/21/2023 01:16 PM EDT Dictated By: Clarence Luna MD Discharge Plan Discharge Clinical Impression: Superficial thrombophlebitis, Embolism from left greater saphenous vein Patient Disposition: Home, Self-Care Instructions: Superficial Thrombophlebitis (ED) Additional Instructions: Your blood work was unremarkable. The ultrasound of your left leg did not reveal any blood clots in the deep veins of your leg. You have a superficial blood clot in the greater saphenous vein and this is causing your pain and redness. Superficial blood clots are treated with heat, elevation, anti-inflammatory medications and antibiotics if you think you have a skin infection (cellulitis). Keep your leg elevated, apply a warm compress or heating pad on low for 15 minutes 4 to 6 times a day. Do this for 4-7 days and this should help improve your symptoms. Take Keflex (cephalexin) 500 mg pills, 1 pill 3 times a day for 7 days. Take ibuprofen 200 mg pills, 2 pills every 6 hours as needed for pain or fever. Take Tylenol (acetaminophen) 500 mg pills, 2 pills every 6 hours as needed for pain or fever. Follow-up with your doctor in 2 days. Please return to the emergency department if your symptoms get worse or if you develop any symptoms that are concerning to you. For your yeast infection I prescribed Diflucan (fluconazole) 150 mg. Take 1 dose now and then 1 dose 3 days later. Prescriptions: New cephalexin 500 mg capsule 500 mg PO QID 7 Days Qty: 28 0RF fluconazole 150 mg tablet 150 mg PO Q3D Qty: 2 0RF Rx Instructions: may repeat second dose 72 hrs after first dose if symptoms persist No Action methadone [Methadone Intensol] 10 mg/mL Concentrate 70 mg PO DAILY trazodone 50 mg tablet 50 mg PO BEDTIME PRN (Reason: Insomnia) hydroxyzine HCl 25 mg tablet 25 mg PO TID gabapentin 300 mg capsule 300 mg PO TID PRN (Reason: Pain) Qty: 60 0RF Interventions: ED Discharge Assessment Last Done: 11/21/23 14:41 Discharge Date/Time: 11/21/23 14:43 Print Language: Bulgarian
[2023-11-21 12:20] LABS: MANUAL DIFF FLAG NO
[2023-11-21 12:21] LABS: Basophils Percent Auto 0.4 % (0-2); Eosinophils Percent Auto 0.2 % (0-4); Hematocrit 39.7 % (37.0-47.0); Hemoglobin 12.8 g/dl (12.0-16.0); Imm Gran Abs Auto 0.02 X10*3/uL (0.00-0.03); Imm Gran Pct Auto 0.4 % (0.0-0.4); Lymphocytes Absolute Auto 1.5 X10*3/uL (1.2-4.9); Lymphocytes Percent Auto 29.7 % (20-40); Mean Corpuscular HGB Conc 32.2 g/dl (31.0-35.0); Mean Corpuscular Hemoglobin 27.8 pg (27.0-33.0); Mean Corpuscular Volume 86.1 fL (80.0-98.0); Mean Platelet Volume 9.4 fL (9.4-12.3); Monocytes Absolute Auto 0.4 X10*3/uL (0.1-1.2); Monocytes Percent Auto 6.8 % (2-11); Neutrophils Absolute Auto 3.2 x10*3/uL (2.0-8.3); Neutrophils Percent Auto 62.5 % (45-73); Platelet Count 232 X10*3/uL (160-400); Red Blood Count 4.61 X10*6/uL (4.20-5.50); White Blood Count 5.2 X10*3/uL (4.8-10.8)
[2023-11-21 12:37] LABS: Alanine Aminotransferase 27 U/L (0-31); Alkaline Phosphatase 96 U/L (39-117); Anion Gap 15 (12-20); Aspartate Amino Transferase 30 U/L (5-31); Bilirubin Total 0.4 mg/dL (0.0-1.0); Blood Urea Nitrogen 11 mg/dL (9-16); C Reactive Protein 2.84 mg/dL (< or = 0.50); Calcium 9.6 mg/dL (8.4-10.2); Carbon Dioxide 24 mmol/L (22-29); Chloride 102 mmol/L (96-108); Creatinine Clr Calc Pharmacy 97.2; Estimated Glomerular Filt Rate > 60; Glucose Random 107 mg/dL (60-115); Potassium 4.3 mmol/L (3.3-5.1); Sodium 137 mmol/L (135-145); Total Protein 9.1 g/dL (6.5-8.0)
[2023-11-21 13:05] VITALS: BP 124/77; PULSE 90; RESP 18; TEMP 36.5; O2SAT 100
[2023-11-21 13:05] LABS: Erythrocyte Sedimentation Rate 46 MM/HR (0-20)
[2023-11-21 14:38] VITALS: BP 120/76; PULSE 69; RESP 18; TEMP 36.6; O2SAT 98
[2023-11-21 14:41] VITALS: BP 120/76; PULSE 69; RESP 18; TEMP 36.6; O2SAT 98
== END 2023-11-21 14:43 | disposition home or self-care (01) ==
PROVIDERS: Physician Assistant Medical; Emergency Provider Emergency Medicine Emergency Medical Services
DX: I80.02 Phlebitis and thrombophlebitis of superficial vessels of left lower extremity (principal); R60.0 Localized edema; F17.210 Nicotine dependence, cigarettes, uncomplicated; F11.10 Opioid abuse, uncomplicated; F14.10 Cocaine abuse, uncomplicated; Z79.899 Other long term (current) drug therapy; Z71.51 Drug abuse counseling and surveillance of drug abuser
CPT/HCPCS: 36415; 80053; 83735; 85025; 85652; 86140; 93971; 99283; 99284

== ENCOUNTER 2024-03-16 14:35 | Emergency (ER) | payer OTHER, SELFPAY ==
[2024-03-16 15:07] VITALS: BP 153/93; PULSE 100; RESP 19; TEMP 36.6; O2SAT 100; BMI 20.5
--- NOTE | 2024-03-16 15:11 | ED_ITS ---
HPI - General Adult General Chief complaint: General Medical Stated complaint: rash, swollen ankles Time Seen by Provider: 03/16/24 16:45 History of Present Illness HPI narrative: Patient complains of a red spotty rash on trunk and back and arms, which spares the palm and soles which has been present for 5 or 6 days, the rash is painless and does not itch, she denies any recent fever she denies sore throat she denies throat swelling she denies tongue swelling she denies any wheezing any throat tightness no cough no shortness of breath no nausea no vomiting, there is no symptom accompanying the rash Patient has hepatitis-C in is going to a methadone program but does sometimes use street drugs and needles Related Data Home Medications ?Medication ?Instructions ?Recorded ?Confirmed methadone 10 mg/mL oral 70 mg PO DAILY 01/04/23 06/03/23 concentrate (Methadone Intensol) hydroxyzine HCl 25 mg tablet 25 mg PO TID 06/02/23 06/02/23 trazodone 50 mg tablet 50 mg PO BEDTIME PRN Insomnia 06/02/23 06/02/23 Previous Rx's ?Medication ?Instructions ?Recorded gabapentin 300 mg capsule 300 mg PO TID PRN Pain #60 caps 06/03/23 cephalexin 500 mg capsule 500 mg PO QID 7 days #28 caps 11/21/23 fluconazole 150 mg tablet 150 mg PO Q3D 2 doses #2 tabs 11/21/23 cetirizine 10 mg tablet 10 mg PO DAILY PRN rash #10 tabs 03/16/24 prednisone 20 mg tablet 60 mg (3 x 20 mg) PO DAILY 3 days 03/16/24 #9 tabs Allergies Allergy/AdvReac Type Severity Reaction Status Date / Time No Known Allergies Allergy Verified 03/16/24 15:09 [No Known Allergies*] [facility] Past Medical History Source: nursing notes reviewed Medical History Scoliosis Hepatitis C Social History Social History Alcohol intake: current Alcohol intake frequency: a few times a month Patient Tobacco Use Status: Current everyday Tobacco user Substance Use Type: Crack/Cocaine, Heroin and Marijuana Advance Directives: No Advance Directives Information Provided: No Do you have a plan to hurt others: No Plan service: No Physical Exam ED Vital Signs: Vital Signs - 24 hr 03/16/24 15:07 03/16/24 17:02 03/16/24 19:50 Temperature 98 F 98.1 F 98.2 F Pulse Rate 100 93 92 Respiratory Rate 19 16 12 Blood Pressure 153/93 H 133/94 H 152/102 H Pulse Oximetry 100 99 97 Oxygen Delivery Method Room Air Room Air Room Air 03/16/24 19:59 Temperature 98.2 F Pulse Rate 92 Respiratory Rate 12 Blood Pressure 152/102 H Pulse Oximetry 97 Oxygen Delivery Method Room Air BMI result Body Mass Index 20.5 General appearance no distress Eyes no redness or discharge The sinuses nontender The pharynx is clear without redness swelling or exudate, membranes are moist Neck is supple Chest is clear to auscultation bilateral Heart no murmur Abdomen soft nontender The back no CVA tenderness The skin there is a widespread maculopapular blanching rash which covers the chest the back and the arms but does not include palms or soles of feet, rashes nontender, skin is intact there is no erythema or fluctuance or signs of infection Extremities full range motion x4 No calf tenderness or swelling There is pitting edema on both lower legs Neuro no focal deficits Course Course Course Narrative: RME: 34 yold female presents to the ED for non-itchy generalized rash and bilateral swollen ankles. patient denies any swelling of tongue, lips, chest pain, or SOB. labs ordered. Case discussed with Dr. Mckeon who thought it could be syphilis so RPR was sent Patient says that she is easily reached and is stable employed at if there is a positive results we can contact her easily CBC without significant findings INR was 0.9 On chemistry AST was 64, ALT 36 ALP 190, total protein 10.8, albumin was 4.2 and creatinine 0.81, test was negative I told patient we are not sure what the rashes, but offered trial of treatment with Zyrtec and prednisone in case there is some allergic or inflammatory component and she agreed to that, she will return if RPR is positive, or if anything worsens and will follow with her doctor for possible referral to client services manager if treatment does not work Medications Administered Discontinued Medications Generic Name Dose Route Start Last Admin Trade Name Freq PRN Reason Stop Dose Admin Loratadine 10 mg 03/16/24 19:40 03/16/24 19:53 Loratadine 10 Mg Tablet PO 03/16/24 19:41 10 mg ONCE ONE Administration Prednisone 60 mg 03/16/24 19:40 03/16/24 19:53 Prednisone 20 Mg Tablet PO 03/16/24 19:41 60 mg ONCE ONE Administration Medical Decision Making Lab Data [facility] Lab Attestation statement: I reviewed the patient's lab results. 03/16/24 16:06 03/16/24 16:06 Labs: Lab Results 03/16/24 03/16/24 03/16/24 Range/Units 16:06 16:40 16:40 WBC 4.5 L (4.8-10.8) X10*3/uL RBC 4.38 (4.20-5.50) X10*6/uL Hgb 12.2 (12.0-16.0) g/dl Hct 37.1 (37.0-47.0) % MCV 84.7 (80.0-98.0) fL MCH 27.9 (27.0-33.0) pg MCHC 32.9 (31.0-35.0) g/dl RDW 15.9 (11.0-16.0) % Plt Count 279 (160-400) X10*3/uL MPV 9.5 (9.4-12.3) fL Immature Gran % (Auto) 0.4 (0.0-0.4) % Neut % (Auto) 65.3 (45-73) % Lymph % (Auto) 28.6 (20-40) % Garrett % (Auto) 5.1 (2-11) % Eos % (Auto) 0.4 (0-4) % Baso % (Auto) 0.2 (0-2) % Lymph # (Auto) 1.3 (1.2-4.9) X10*3/uL Garrett # (Auto) 0.2 (0.1-1.2) X10*3/uL Eos # (Auto) 0.0 (0.0-0.4) X10*3/uL Baso # (Auto) 0.0 (0.0-0.2) X10*3/uL Abs Immat Gran (auto) 0.02 (0.00-0.03) X10*3/uL Absolute Neuts (auto) 3.0 (2.0-8.3) x10*3/uL Absolute Nucleated RBC 0.000 (0.0-0.012) X10*3/uL Nucleated RBC % (auto) 0.0 (0.0-0.2) /100WBC PT 10.5 L 10.7 L (10.9-12.4) SEC INR 0.9 (0.9-1.1) APTT (26.0-36.8) SEC Sodium 132 L (135-145) mmol/L Potassium 5.2 H D (3.3-5.1) mmol/L Chloride 102 (96-108) mmol/L Carbon Dioxide 22 (22-29) mmol/L Anion Gap 13 (12-20) BUN 6 L (9-16) mg/dL Creatinine 0.81 (0.5-1.4) mg/dL Estim Creat Clear Calc 96.3 Estimated GFR > 60 Random Glucose 93 (60-115) mg/dL Calcium 9.4 (8.4-10.2) mg/dL Total Bilirubin 0.4 (0.0-1.0) mg/dL AST 64 H (5-31) U/L ALT 36 H (0-31) U/L Alkaline Phosphatase 190 H (39-117) U/L Total Protein 10.8 H (6.5-8.0) g/dL Albumin 4.2 (3.5-5.0) g/dL Urine Test (NEGATIVE) S. pyogenes GrpA BEBE Negative (Negative) 03/16/24 03/16/24 Range/Units 16:40 19:14 WBC (4.8-10.8) X10*3/uL RBC (4.20-5.50) X10*6/uL Hgb (12.0-16.0) g/dl Hct (37.0-47.0) % MCV (80.0-98.0) fL MCH (27.0-33.0) pg MCHC (31.0-35.0) g/dl RDW (11.0-16.0) % Plt Count (160-400) X10*3/uL MPV (9.4-12.3) fL Immature Gran % (Auto) (0.0-0.4) % Neut % (Auto) (45-73) % Lymph % (Auto) (20-40) % Garrett % (Auto) (2-11) % Eos % (Auto) (0-4) % Baso % (Auto) (0-2) % Lymph # (Auto) (1.2-4.9) X10*3/uL Garrett # (Auto) (0.1-1.2) X10*3/uL Eos # (Auto) (0.0-0.4) X10*3/uL Baso # (Auto) (0.0-0.2) X10*3/uL Abs Immat Gran (auto) (0.00-0.03) X10*3/uL Absolute Neuts (auto) (2.0-8.3) x10*3/uL Absolute Nucleated RBC (0.0-0.012) X10*3/uL Nucleated RBC % (auto) (0.0-0.2) /100WBC PT (10.9-12.4) SEC INR 0.9 (0.9-1.1) APTT 29.6 (26.0-36.8) SEC Sodium (135-145) mmol/L Potassium (3.3-5.1) mmol/L Chloride (96-108) mmol/L Carbon Dioxide (22-29) mmol/L Anion Gap (12-20) BUN (9-16) mg/dL Creatinine (0.5-1.4) mg/dL Estim Creat Clear Calc Estimated GFR Random Glucose (60-115) mg/dL Calcium (8.4-10.2) mg/dL Total Bilirubin (0.0-1.0) mg/dL AST (5-31) U/L ALT (0-31) U/L Alkaline Phosphatase (39-117) U/L Total Protein (6.5-8.0) g/dL Albumin (3.5-5.0) g/dL Urine Test NEGATIVE (NEGATIVE) S. pyogenes GrpA BEBE (Negative) Discharge Plan Discharge Clinical Impression: Rash, Edema Patient Disposition: Home, Self-Care Additional Instructions: We are not sure what is causing the rash We are trying a treatment for inflammatory reaction of prednisone and antihistamine, but it may not help There is a chance this could be syphilis so we have sent a test for that and will call you to come back if the result is positive Follow with primary doctor for referral to client services manager if treatment does not help Return to the ER any time for any change or worse condition or any concerns Prescriptions: New cetirizine 10 mg tablet 10 mg PO DAILY PRN (Reason: rash) Qty: 10 0RF prednisone 20 mg tablet 60 mg PO DAILY 3 Days Qty: 9 0RF No Action methadone [Methadone Intensol] 10 mg/mL Concentrate 70 mg PO DAILY trazodone 50 mg tablet 50 mg PO BEDTIME PRN (Reason: Insomnia) hydroxyzine HCl 25 mg tablet 25 mg PO TID gabapentin 300 mg capsule 300 mg PO TID PRN (Reason: Pain) Qty: 60 0RF cephalexin 500 mg capsule 500 mg PO QID 7 Days Qty: 28 0RF fluconazole 150 mg tablet 150 mg PO Q3D Qty: 2 0RF Rx Instructions: may repeat second dose 72 hrs after first dose if symptoms persist Stand Alone Forms: Work/School Release Interventions: ED Discharge Assessment Last Done: 03/16/24 19:59 Discharge Date/Time: 03/16/24 19:59 Print Language: Setswana
[2024-03-16 16:12] LABS: MANUAL DIFF FLAG NO
[2024-03-16 16:14] LABS: Basophils Percent Auto 0.2 % (0-2); Eosinophils Percent Auto 0.4 % (0-4); Hematocrit 37.1 % (37.0-47.0); Hemoglobin 12.2 g/dl (12.0-16.0); Imm Gran Abs Auto 0.02 X10*3/uL (0.00-0.03); Imm Gran Pct Auto 0.4 % (0.0-0.4); Lymphocytes Absolute Auto 1.3 X10*3/uL (1.2-4.9); Lymphocytes Percent Auto 28.6 % (20-40); Mean Corpuscular HGB Conc 32.9 g/dl (31.0-35.0); Mean Corpuscular Hemoglobin 27.9 pg (27.0-33.0); Mean Corpuscular Volume 84.7 fL (80.0-98.0); Mean Platelet Volume 9.5 fL (9.4-12.3); Monocytes Absolute Auto 0.2 X10*3/uL (0.1-1.2); Monocytes Percent Auto 5.1 % (2-11); Neutrophils Percent Auto 65.3 % (45-73); Platelet Count 279 X10*3/uL (160-400); Red Blood Count 4.38 X10*6/uL (4.20-5.50); Red Cell Distribution Width 15.9 % (11.0-16.0); White Blood Count 4.5 X10*3/uL (4.8-10.8)
[2024-03-16 16:22] LABS: IDNOW Serial# 58CA691E; Strep A Nucleic Acid Negative (Negative)
[2024-03-16 16:35] LABS: Alanine Aminotransferase 36 U/L (0-31); Albumin Level 4.2 g/dL (3.5-5.0); Alkaline Phosphatase 190 U/L (39-117); Anion Gap 13 (12-20); Aspartate Amino Transferase 64 U/L (5-31); Bilirubin Total 0.4 mg/dL (0.0-1.0); Blood Urea Nitrogen 6 mg/dL (9-16); Calcium 9.4 mg/dL (8.4-10.2); Carbon Dioxide 22 mmol/L (22-29); Chloride 102 mmol/L (96-108); Creatinine Clr Calc Pharmacy 96.3; Estimated Glomerular Filt Rate > 60; Glucose Random 93 mg/dL (60-115); Potassium 5.2 mmol/L (3.3-5.1); Sodium 132 mmol/L (135-145); Total Protein 10.8 g/dL (6.5-8.0)
[2024-03-16 16:55] LABS: INTERNATIONAL NORM RATIO 0.9 (0.9-1.1); Prothrombin Time 10.5 SEC (10.9-12.4); Prothrombin Time 10.7 SEC (10.9-12.4)
[2024-03-16 16:58] LABS: Partial Thromboplastin Time 29.6 SEC (26.0-36.8)
[2024-03-16 17:02] VITALS: BP 133/94; PULSE 93; RESP 16; TEMP 36.7; O2SAT 99
--- OUTSIDE RECORDS SUMMARY | 2024-03-16 17:36 | XMS_ITS ---
Author Organization [facility] Address [address] [place] [address] Care Team Providers Care Opera Singer Name Role Phone Shea Bañuelos Unavailable [phone] ALLERGIES, ADVERSE REACTIONS, ALERTS None MEDICATIONS Medication Code Code System Start Date Stop Date Route Dosage Directions Fill Instructions methadone 0 RxNorm oral PROBLEMS Problem Name Code Code System Start Date End Date Stat us Unspecified abdominal pain 93181848 [facility] 09/28/2023 Active ENCOUNTERS Encounter Diagnosis Code Code System Date Stat us Unspecified abdominal pain [facility] 09/28/2023 Active IMMUNIZATIONS * None VITAL SIGNS Code Code System Vitals Name Date Value and Un its 8462-4 [facility] Blood Pressure-Diastolic 09/28/2023 75 mmHg 8480-6 [facility]-Systolic 09/28/2023 1 17 mmHg 8867-4 [facility] Heart Rate 09/28/2023 78 /min 9279-1 [facility] Respiratory Rate 09/28/2023 16 /min 8310-5 [facility] Body Temperature 09/28/2023 97.5 F 50892-7 [facility] Oxygen Saturation 09/28/2023 96 % SOCIAL HISTORY * None PROCEDURES * None MEDICAL EQUIPMENT * Patient has no history of implantable devices ASSESSMENT * None TREATMENT PLAN No Treatment Plan Items Lab Tests None GOALS * None HEALTH CONCERNS * No Health Concerns FUNCTIONAL AND COGNITIVE STATUS * None CONSULTATION NOTES * Tracy Strauss - 09/28/2023 ED TransferReferred To: [address] [place] [address]S: F: Schedule: CompletedNotes:* Comments: Patient refused ambulance transfer. Mode of transport is Privately Owned VehicleStability Status is stableOrdered 09/28/2023 05:59 PM by Eric aGrcia edited 10/06/2023 01:06 PM by Tracy Strauss MA [facility] SUMMARY NOTES * None HISTORY AND PHYSICAL NOTES * None IMAGING NOTES * None LABORATORY REPORT NARRATIVE NOTES * None PATHOLOGY REPORT NARRATIVE NOTES * None PROGRESS NOTES * None
--- OUTSIDE RECORDS SUMMARY | 2024-03-16 17:37 | XMS_ITS ---
Author Organization [facility] Address [address] [place] [address] Care Team Providers Care Armed Security Guard Name Role Phone Shea Bañuelos Unavailable [phone] ALLERGIES, ADVERSE REACTIONS, ALERTS None MEDICATIONS Medication Code Code System Start Date Stop Date Route Dosage Directions Fill Instructions methadone 0 RxNorm oral PROBLEMS Problem Name Code Code System Start Date End Date Stat us Unspecified abdominal pain [id number] [facility] 09/28/2023 Active ENCOUNTERS Encounter Diagnosis Code Code System Date Stat us Unspecified abdominal pain SnomedCt 09/28/2023 Active IMMUNIZATIONS * None VITAL SIGNS Code Code System Vitals Name Date Value and Un its 8462-4 [facility] Blood Pressure-Diastolic 09/28/2023 75 mmHg 8480-6 [facility] Blood Pressure-Systolic 09/28/2023 1 17 mmHg 8867-4 [facility] Heart Rate 09/28/2023 78 /min 9279-1 [facility] Respiratory Rate 09/28/2023 16 /min 8310-5 [facility] Body Temperature 09/28/2023 97.5 F 15808-4 [facility] Oxygen Saturation 09/28/2023 96 % SOCIAL HISTORY * None PROCEDURES * None MEDICAL EQUIPMENT * Patient has no history of implantable devices ASSESSMENT * None TREATMENT PLAN No Treatment Plan Items Lab Tests None GOALS * None HEALTH CONCERNS * No Health Concerns FUNCTIONAL AND COGNITIVE STATUS * None CONSULTATION NOTES * Tracy Strauss - 09/28/2023 ED TransferReferred To: [address] [place] [address]T: F: Schedule: CompletedNotes:* Comments: Patient refused ambulance transfer. Mode of transport is Privately Owned VehicleStability Status is stableOrdered 09/28/2023 05:59 PM by Eric Garcia edited 10/06/2023 01:06 PM by Tracy Strauss MA [facility] SUMMARY NOTES * None HISTORY AND PHYSICAL NOTES * None IMAGING NOTES * None LABORATORY REPORT NARRATIVE NOTES * None PATHOLOGY REPORT NARRATIVE NOTES * None PROGRESS NOTES * None
[2024-03-16 19:22] LABS: UPreg QC Valid YES; Urine Pregnancy NEGATIVE (NEGATIVE)
[2024-03-16 19:50] VITALS: BP 152/102; PULSE 92; RESP 12; TEMP 36.8; O2SAT 97
[2024-03-16] MEDS: predniSONE 20 MG TABLET 60 MG PO (19:53)
[2024-03-16] MEDS: Loratadine 10 MG TABLET PO (19:53)
[2024-03-16 19:59] VITALS: BP 152/102; PULSE 92; RESP 12; TEMP 36.8; O2SAT 97
[2024-03-17 09:11] LABS: Syphilis Screen Reactive (Nonreactive)
[2024-03-23 16:17] LABS: RPR Quantitative Reactive 1:32 (Nonreactive)
[2024-03-23 16:18] LABS: T.Pallidum Particle Agg Test Reactive (Nonreactive)
== END 2024-03-16 19:59 | disposition home or self-care (01) ==
PROVIDERS: Physician Assistant; Physician Assistant Medical; Emergency Provider Emergency Medicine
DX: R60.0 Localized edema (principal); R21 Rash and other nonspecific skin eruption; Z79.899 Other long term (current) drug therapy
CPT/HCPCS: 36415; 80053; 81025; 85025; 85610; 85730; 86592; 86780; 87651; 99283

== ENCOUNTER 2024-10-04 02:14 | Inpatient (IN) | payer OTHER, SELFPAY ==
[2024-10-04] VITALS (37 sets, daily range): BP systolic 81–179; BP diastolic 47–134; PULSE 52–96; RESP 16–29; TEMP 34.7–37.1; O2SAT 96–100; BMI 21.5; BMI 18.0; BMI 19.1
--- NOTE | ~2024-10-04 | XR_ITS ---
EXAMINATION: XR CHEST CLINICAL INFORMATION: ET and OJ tube placement verification COMPARISON: June 02, 2023 TECHNIQUE: Frontal view of the chest was obtained. FINDINGS: The endotracheal tube ends 5 cm above rachele. The NG tube and its below the left hemidiaphragm in the left upper quadrant abdomen and overlapping the gastric gas. No consolidation, pleural effusion or pneumothorax. Cardiomediastinal silhouette size is small. S-shaped curvature of the upper/mid thoracic spine. XR/XR chest 1V IMPRESSION: Status post intubation ending 5 cm above rachele. Status post NG tube placement at the proximal segment of the stomach region. Scoliosis, upper/midportion of the thoracic spine, not fully evaluated. Electronically signed by: Humphrey Perez MD 10/04/2024 07:51 AM EDT
[2024-10-04] MEDS: diazePAM 10 MG/2 ML CARTRIDGE IM (02:21)
--- NOTE | 2024-10-04 02:46 | ED.OVERDOSE ---
HPI - Overdose General Chief Complaint: Overdose Stated Complaint: OD Time Seen by Provider: 10/04/24 02:30 Related Data Home Medications ?Medication ?Instructions ?Recorded ?Confirmed methadone 10 mg/mL oral 70 mg PO DAILY 01/04/23 06/03/23 concentrate (Methadone Intensol) hydroxyzine HCl 25 mg tablet 25 mg PO TID 06/02/23 06/02/23 trazodone 50 mg tablet 50 mg PO BEDTIME PRN Insomnia 06/02/23 06/02/23 Previous Rx's ?Medication ?Instructions ?Recorded gabapentin 300 mg capsule 300 mg PO TID PRN Pain #60 caps 06/03/23 cephalexin 500 mg capsule 500 mg PO QID 7 days #28 caps 11/21/23 fluconazole 150 mg tablet 150 mg PO Q3D 2 doses #2 tabs 11/21/23 cetirizine 10 mg tablet 10 mg PO DAILY PRN rash #10 tabs 03/16/24 prednisone 20 mg tablet 60 mg (3 x 20 mg) PO DAILY 3 days 03/16/24 #9 tabs Allergies Allergy/AdvReac Type Severity Reaction Status Date / Time No Known Allergies (No Known Allergy Verified 10/04/24 02:41 Allergies*) [facility] Past Medical History Medical History Scoliosis Hepatitis C Social History Social History Alcohol intake: current Alcohol intake frequency: a few times a month Patient Tobacco Use Status: Current everyday Tobacco user Use of substances other than those prescribed or required for medical reasons: Yes Substance Use Type: Heroin Advance Directives: No Advance Directives Information Provided: Yes service: No Physical Exam Vital Signs: Vital Signs: Last Vital Signs Pulse 92 10/04/24 06:00 Resp 22 H 10/04/24 06:00 Pulse Ox 99 10/04/24 06:00 O2 Del Method Room Air 10/04/24 04:52 BMI result Body Mass Index 18.0 Medications Administered Generic Name Dose Route Start Last Admin Trade Name Freq PRN Reason Stop Dose Admin Dexmedetomidine HCl 400 mcg in 100 mls @ 0 mls/hr 10/04/24 05:00 10/04/24 06:00 Precedex IVCONT 1.4 mcg/kg/hr .Q0M NITESH 19.95 mls/hr Protocol Titration Per Protocol Discontinued Medications Generic Name Dose Route Start Last Admin Trade Name Barbara PRN Reason Stop Dose Admin Diazepam 10 mg 10/04/24 02:32 10/04/24 02:21 Diazepam 10 Mg/2 Ml Cartridge IM 10/04/24 02:33 10 mg STAT STA Administration Diphenhydramine HCl 50 mg 10/04/24 02:20 10/04/24 02:21 Diphenhydramine Hcl 50 Mg/Ml Vial IM 10/04/24 02:21 50 mg ONCE ONE Administration Haloperidol Lactate 5 mg 10/04/24 02:20 10/04/24 02:21 Haloperidol Lactate 5 Mg/Ml Vial IM 10/04/24 02:21 5 mg STAT STA Administration Ketamine HCl 136 mg 10/04/24 03:30 10/04/24 03:37 Ketamine Hcl 500 Mg/5 Ml Vial IM 10/04/24 03:31 136 mg ONCE ONE Administration Ziprasidone 20 mg 10/04/24 02:46 10/04/24 02:53 Ziprasidone Mesylate 20 Mg Vial IM 10/04/24 02:47 20 mg ONCE ONE Administration Procedures Intubation Intubation Type:: Endotracheal Tube Insertion Intubation Date:: 10/04/24 Intubation Time:: 06:28 Time out performed: Yes sedative: Etomidate Mg Given: 20 paralytic: Rocuronium Mg Given: 100 Laryngoscope: other (GlideScope) ET Tube Size: 7 ET Tube Uncuffed: No Tube Secured Depth (cm): 23 Tube Secured Location: lips Tube Placement Confirmation: visualized tube passing through cords, equal breath sounds bilaterally, no breath sounds over epigastrium and confirmation by capnometry Patient Tolerated Procedure: well and no complications Intubation Complications: none Medical Decision Making Medical Decision Making MDM Narrative: On arrival, patient acting erratic, trying to get out of bed, trying to punch people. Patient is thrashing, can not sit still. For the staff safety and the patient's safety, patient was given IM medication including diazepam 10 mg, Benadryl 50 mg and Haldol 5 mg. Almost 40 minutes after the initial dose, patient is still thrashing, throwing kicks and punches, patient was given 20 mg IM of Geodon Patient is still combative, getting out of bed, standing on the bed, nearly falling. Patient is still very altered and uncooperative. Difficult to redirect. Patient has been started on Precedex I discussed the patient with Dr. Steve, patient being admitted to ICU Patient was not maximum dose of Precedex, still awake, very agitated, trying to get out of bed. Yelling. Patient needed intubation. Differential Diagnosis Differential Diagnoses: The differential diagnosis associated with the presentation includes Admission/Observation Consideration of admission/observation: Escalation of care including admission/observation considered Consult Healthcare Provider Management of the patient was discussed with: Hospitalist Lab Data MDM Lab Attestation statement: I reviewed the patient's lab results. 10/04/24 03:59 10/04/24 03:59 Labs: Lab Results 10/04/24 10/04/24 Range/Units 03:30 03:59 WBC 4.8 (4.8-10.8) X10*3/uL RBC 4.18 L (4.20-5.50) X10*6/uL Hgb 10.5 L (12.0-16.0) g/dl Hct 33.3 L (37.0-47.0) % MCV 79.7 L (80.0-98.0) fL MCH 25.1 L (27.0-33.0) pg MCHC 31.5 (31.0-35.0) g/dl RDW 17.0 H (11.0-16.0) % Plt Count 325 (160-400) X10*3/uL MPV 9.7 (9.4-12.3) fL Immature Gran % (Auto) 0.4 (0.0-0.4) % Neut % (Auto) 60.0 (45-73) % Lymph % (Auto) 29.2 (20-40) % Bledsoe % (Auto) 10.0 (2-11) % Eos % (Auto) 0.2 (0-4) % Baso % (Auto) 0.2 (0-2) % Lymph # (Auto) 1.4 (1.2-4.9) X10*3/uL Bledsoe # (Auto) 0.5 (0.1-1.2) X10*3/uL Eos # (Auto) 0.0 (0.0-0.4) X10*3/uL Baso # (Auto) 0.0 (0.0-0.2) X10*3/uL Abs Immat Gran (auto) 0.02 (0.00-0.03) X10*3/uL Absolute Neuts (auto) 2.9 (2.0-8.3) x10*3/uL Absolute Nucleated RBC 0.000 (0.0-0.012) X10*3/uL Nucleated RBC % (auto) 0.0 (0.0-0.2) /100WBC Sodium 141 (135-145) mmol/L Potassium 3.5 D (3.3-5.1) mmol/L Chloride 108 (96-108) mmol/L Carbon Dioxide 23 (22-29) mmol/L Anion Gap 14 (12-20) BUN 8 L (9-16) mg/dL Creatinine 0.71 (0.5-1.4) mg/dL Estim Creat Clear Calc 122.1 Estimated GFR > 60 Random Glucose 140 H (60-115) mg/dL Calcium 9.2 (8.4-10.2) mg/dL Magnesium 1.9 (1.6-2.6) mg/dL Total Bilirubin 0.5 (0.0-1.0) mg/dL Direct Bilirubin 0.2 (0.0-0.5) mg/dL AST 78 H (5-31) U/L ALT 48 H (0-31) U/L Alkaline Phosphatase 98 (39-117) U/L Total Creatine Kinase 453 H (26-140) U/L Total Protein 9.0 H (6.5-8.0) g/dL Albumin 4.0 (3.5-5.0) g/dL Beta HCG, Quant < 2 mIU/mL Urine Opiates Screen POSITIVE H (Not Detect) Ur Buprenorphine Scrn Not Detected (Not Detect) ng/mL Ur Oxycodone Screen Not Detected (Not Detect) ng/mL Urine Methadone Screen Positive H (Not Detect) ng/mL Urine Fentanyl Screen POSITIVE H (Not Detect) Ur Barbiturates Screen Not Detected (Not Detect) Ur Phencyclidine Scrn Not Detected (Not Detect) Ur Amphetamines Screen Not Detected (Not Detect) U Benzodiazepines Scrn Not Detected (Not Detect) Urine Cocaine Screen POSITIVE H (Not Detect) U Marijuana (THC) Screen POSITIVE H (Not Detect) Ethyl Alcohol < 10 mg/dL Critical Care Time Critical Care Time Critical Care Time: Yes Total Critical Care Time: 90 Attestation: I have personally provided critical care time. Time includes review of lab data, radiology results, discussion with consultants, and monitoring for potential decompensation. Intervention performed as documented. Discharge Plan Discharge Clinical Impression: Drug side effects, Agitation Patient Disposition: Admitted As Inpatient Print Language: Portuguese
--- NOTE | 2024-10-04 02:54 | PC.NURSE ---
Addendum entered by Jessi Corey RN 10/04/24 07:15: 0615- pt intubated by MD Mckeon, 20mg of etomidate, 50mg of David given, pt still active, another 50mcg of david given. 0620 7.0 tube placed at the 23cm hans. pt intubated tolerated well. Addendum entered by Jessi Corey RN 10/04/24 07:13: 0530 precedex drip started per may. titrated up to max titration of 1.5, pt increasingly agitated and restless. titration stopped per MD. plan to intubate pt at this time. Addendum entered by Jessi Corey RN 10/04/24 05:07: pt having intermittent episodes of trying to get out of bed, restlessness and thrashing in bed. pts bed sheets and hospital attire changed after pt urinated on herself. MD aware of pts continued agitation and restlessness. pending new orders at this time. Addendum entered by Jessi Corey RN 10/04/24 05:05: 0337- pt received 136mg of ketamine IM for continued agitation, restlesness, and thrashing in the bed. able to place IV line in pt and collect labs. Addendum entered by Jessi Corey RN 10/04/24 05:01: 0253- pt received 20mg of Geodon IM per may for continued agitation, restlessness. thrashing in bed, trying to get out of bed. pts bed sheets and gown changed after patient urinated on herself. Addendum entered by Jessi Corey RN 10/04/24 03:18: during size changer noticed healing wound to inner right ankle, scattered different stages of bruising on all extremities. seizure pads put on bed d/t pt continuing to swing legs and arms against stretcher. Original Note: upon arrival pt thrashing about in stretcher and screaming. pt medicated per may. pt moved into room and changed over into hospital attire, belonging searched and secured by security. pt continuing to thrash around in bed kicking legs. pt states she did 5 bags of heroin, denies si/hi at this time. states she wants detox but has a place to go already.
--- NOTE | 2024-10-04 02:55 | PC.NURSE ---
Mother Krissy given an update by this service writer, she states she can be reached at [phone].
[2024-10-04 03:48] LABS: Cannabinoid Screen Urine POSITIVE (Not Detect)
[2024-10-04 04:05] LABS: Hematocrit 33.3 % (37.0-47.0); Hemoglobin 10.5 g/dl (12.0-16.0); Imm Gran Abs Auto 0.02 X10*3/uL (0.00-0.03); Imm Gran Pct Auto 0.4 % (0.0-0.4); Lymphocytes Absolute Auto 1.4 X10*3/uL (1.2-4.9); MANUAL DIFF FLAG NO; Mean Corpuscular HGB Conc 31.5 g/dl (31.0-35.0); Mean Corpuscular Hemoglobin 25.1 pg (27.0-33.0); Mean Corpuscular Volume 79.7 fL (80.0-98.0); NRBC Abs Auto 0.000 X10*3/uL (0.0-0.012); NRBC Pct Auto 0.0 /100WBC (0.0-0.2); Platelet Count 325 X10*3/uL (160-400); Red Blood Count 4.18 X10*6/uL (4.20-5.50); White Blood Count 4.8 X10*3/uL (4.8-10.8)
[2024-10-04 04:34] LABS: Alanine Aminotransferase 48 U/L (0-31); Albumin Level 4.0 g/dL (3.5-5.0); Alkaline Phosphatase 98 U/L (39-117); Anion Gap 14 (12-20); Aspartate Amino Transferase 78 U/L (5-31); Blood Urea Nitrogen 8 mg/dL (9-16); Calcium 9.2 mg/dL (8.4-10.2); Carbon Dioxide 23 mmol/L (22-29); Chloride 108 mmol/L (96-108); Creatinine Clr Calc Pharmacy 122.1; Estimated Glomerular Filt Rate > 60; Magnesium 1.9 mg/dL (1.6-2.6); Potassium 3.5 mmol/L (3.3-5.1); Sodium 141 mmol/L (135-145); Total Protein 9.0 g/dL (6.5-8.0)
[2024-10-04] MEDS: dexmedeTOMIDine HCL/NS 400 MCG/100 ML PLAST..BAG 14.25 MCG IVCONT (05:30)
--- OUTSIDE RECORDS SUMMARY | 2024-10-04 05:54 | XMS_ITS ---
Author Name [facility] Organization Unknown Care Team Organization Name Specialty Phone Email Start Date End Da te [facility] Man Sarkar DO Primary Care 05/20/202210/13 [facility] NULL Primary Care 01/20/2022 11/01/2023
--- NOTE | 2024-10-04 06:42 | MHC.EDTECH ---
Pt change management facilitator done by previous tech and security upon arrival- T/w did not assist with this, however belongings list not done. T/w checked [employer]- shelf 2 and appears to be clothing, hair clip and telephonic nurse in bag.
[2024-10-04] MEDS: fentaNYL citrate/NS 1,000 MCG/100 ML PLAST..BAG 2.5 MCG IVCONT (06:43)
[2024-10-04] MEDS: Chlorhexidine Gluc Oral Rinse 15 ML MOUTHWASH BUCCAL ×3 (08:07→20:21)
--- NOTE | 2024-10-04 08:52 | PHA.MEDREC ---
Addendum entered by Willem Langford PharmD 10/04/24 09:05: reviewed Original Note: Pharmacy Consult ? Medication Reconciliation Pharmacy has attempted the medication reconciliation. I could not spake to patient due to her being intubated. Spoke to patients mother over the phone to confirm med list, however she new nothing about her daughters medications. There are no recent claims. Per recent visit notes patient is on methadone daily through [facility] in [place]. last documented dose was 70 mg daily ion 06/03/23 not sure what patient dose is now.
--- NOTE | 2024-10-04 10:04 | P.HPCC_ITS ---
History of Present Illness Date of Service: 10/04/24 Chief Complaint: Polysubstance abuse 64-year-old lady with underlying hepatitis-C, syphilis, polysubstance abuse, migraines found unresponsive by her family and transported to emergency room with Narcan given by EMS with patient becoming extremely agitated despite maximum dose Precedex and multiple parenteral sedatives requiring intubation and ventilatory support. Review of Systems 2 Review of Systems: Yes unobtainable due to endotracheal tube and Unobtainable due to mental condition PMFSH Past Medical History Medical History Scoliosis Hepatitis C Social History Social History Household Members: Unknown / Unable to assess Housing: Unknown / Unable to assess Alcohol intake: current Alcohol intake frequency: a few times a month Patient Tobacco Use Status: Tobacco use Unknown Use of substances other than those prescribed or required for medical reasons: Yes Substance Use Type: Heroin Advance Directives: No Advance Directives Information Provided: Yes Do you have a plan to hurt others: No Plan Patient : No service: No Meds Allergies Allergy/AdvReac Type Severity Reaction Status Date / Time No Known Allergies (No Known Allergy Verified 10/04/24 02:41 Allergies*) Active Medications: Current Medications Chlorhexidine Gluconate (Chlorhexidine Gluc Oral Rinse 15 Ml Mouthwash) 15 ml BUCCAL TID [facility] Last Admin: 10/04/24 08:07 Dose: 15 ml Enoxaparin Sodium (Enoxaparin Sodium 40 Mg/0.4 Ml Syringe) 40 mg SUBCUT Q24H NITESH Last Admin: 10/04/24 08:07 Dose: 40 mg Famotidine (Famotidine/Pf 20 Mg/2 Ml Vial) 20 mg IVPUSH DAILY NITESH Last Admin: 10/04/24 08:07 Dose: 20 mg Fentanyl (Sublimaze/Ns) 1,000 mcg in 100 mls @ 0 mls/hr IVCONT .Q0M [facility]; Protocol Last Titration: 10/04/24 09:59 Dose: 200 mcg/hr, 20 mls/hr Propofol (Diprivan) 1,000 mg in 100 mls @ 0 mls/hr IVCONT .Q0M [facility]ESH; Protocol Last Titration: 10/04/24 08:16 Dose: 50 mcg/kg/min, 17.1 mls/hr Norepinephrine Bitartrate (Levophed) 8 mg in 250 mls @ 0 mls/hr IVCONT .Q0M [facility]; Protocol Last Admin: 10/04/24 08:52 Dose: 0.05 mcg/kg/min, 5.34 mls/hr Midazolam HCl (Midazolam Hcl 2 Mg/2 Ml Vial) 4 mg IVPUSH Q2H PRN PRN Reason: Ventilator synchrony Last Admin: 10/04/24 09:58 Dose: 4 mg Naloxone HCl (Naloxone Hcl 0.4 Mg/Ml Vial) 0.2 mg IVPUSH Q2M PRN PRN Reason: Excessive sedation or RR < 8 Home Medications ?Medication ?Instructions ?Recorded ?Confirmed ?Last Taken ?Type methadone 10 mg/mL oral 70 mg PO DAILY 01/04/23 03/04/0706/02/23 History concentrate (Methadone Intensol) Physical Exam 2 Vital Signs: Vital Signs: Last Vital Signs Temp 98.0 F 10/04/24 08:00 Pulse 67 10/04/24 09:00 Resp 16 10/04/24 09:00 BP 94/55 L 10/04/24 09:00 Pulse Ox 100 10/04/24 09:00 O2 Del Method Mechanical Ventil ation 10/04/24 09:00 FiO2 30 10/04/24 09:00 BMI result Body Mass Index 19.1 Const: General: no acute distress and other (Sedated on ventilatory support) Eyes: Sclerae: sclerae normal EOM: EOMs intact bilaterally Neck: Neck: Yes no lymphadenopathy, Yes trachea midline and Yes supple Resp: Effort & Inspection: normal respiratory effort and no respiratory distress Auscultation: clear to auscultation bilaterally Cardio: Rate: regular rate Rhythm: regular rhythm Heart sounds: no gallops, no murmurs and no rubs GI: Palpation (GI): Soft to palpation and Other GI palpation findings present ( Nontender) Auscultation: normal bowel sounds Extrem: General: Yes no pedal edema, No clubbing and No cyanosis Results Labs 10/04/24 03:59 10/04/24 03:59 Labs: Laboratory Results - last 24 hr 10/04/24 10/04/24 03:30 03:59 MCV 79.7 L MCH 25.1 L MCHC 31.5 RDW 17.0 H Plt Count 325 MPV 9.7 Immature Gran % (Auto) 0.4 Neut % (Auto) 60.0 Lymph % (Auto) 29.2 Metcalfe % (Auto) 10.0 Eos % (Auto) 0.2 Baso % (Auto) 0.2 Lymph # (Auto) 1.4 Metcalfe # (Auto) 0.5 Eos # (Auto) 0.0 Baso # (Auto) 0.0 Abs Immat Gran (auto) 0.02 Absolute Neuts (auto) 2.9 Absolute Nucleated RBC 0.000 Nucleated RBC % (auto) 0.0 Anion Gap 14 Estim Creat Clear Calc 122.1 Estimated GFR > 60 Random Glucose 140 H Calcium 9.2 Magnesium 1.9 Total Bilirubin 0.5 Direct Bilirubin 0.2 AST 78 H ALT 48 H Alkaline Phosphatase 98 Total Creatine Kinase 453 H Total Protein 9.0 H Albumin 4.0 Beta HCG, Quant < 2 Urine Opiates Screen POSITIVE H Ur Buprenorphine Scrn Not Detected Ur Oxycodone Screen Not Detected Urine Methadone Screen Positive H Urine Fentanyl Screen POSITIVE H Ur Barbiturates Screen Not Detected Ur Phencyclidine Scrn Not Detected Ur Amphetamines Screen Not Detected U Benzodiazepines Scrn Not Detected Urine Cocaine Screen POSITIVE H U Marijuana (THC) Screen POSITIVE H Ethyl Alcohol < 10 Imaging Radiologist's Impressions: Impressions Chest X-Ray 10/04/24 06:30 IMPRESSION: Status post intubation ending 5 cm above rachele. Status post NG tube placement at the proximal segment of the stomach region. Scoliosis, upper/midportion of the thoracic spine, not fully evaluated. Electronically signed by: Humphrey Perez MD 10/04/2024 07:51 AM EDT Assessment and Plan (1) Polysubstance abuse: Status: Acute (2) Agitation: Status: Acute Plan Assessment: 34-year-old lady admitted with polysubstance abuse resulting in acute agitation requiring multiple sedative drips and intubation for airway protection. Plan: Neuro: Acute agitation from polysubstance abuse, continue to titrate off sedatives drip. Cardiac: No acute issues. Pulmonary: Intubated for airway protection, continue to titrate off ventilatory support as tolerated. Renal: No acute issues. Endo: No acute issues. GI: No acute issues. ID: Syphilis positive with no documentation of subsequent treatment, start penicillin G. Heme/Onc: No acute issues. Psych: No acute issues. Miscellaneous: No acute issues. Prophylaxis: Heparin, famotidine Diet: NPO Critical care time spent: 60 minutes
[2024-10-04] MEDS: fentaNYL citrate/NS 1,000 MCG/100 ML PLAST..BAG 20 MCG IVCONT ×3 (12:47→22:33)
[2024-10-04] MEDS: methADONE HCl 20 MG/2 ML ORAL.CONC 40 MG PO (16:57)
--- NOTE | 2024-10-04 18:13 | PC.NURSE ---
Assumed care at 0730 when pt. arrived to ICU from ED- Pt. remains mechanically vented and sedated per MAR. +C/G/P, does not open eyes, track, or follow commands but intermittently sitting up/attempting to remove airway/bucking vent. PRN versed given for vent synchrony. SR on tele, HR 60s-90s with PVCs. Tolerating ACVC vent settings. OGT clamped. Nath cath placed for urinary retention, draining cyu. Q2 repositioning and oral care performed. Family at bedside, updated by this RN and MD. Per HCP, Vitaliy Long is NOT ALLOWED to visit the pt. Plan of care ongoing.
[2024-10-05] VITALS (33 sets, daily range): BP systolic 95–130; BP diastolic 52–88; PULSE 62–92; RESP 15–19; TEMP 35–37.3; O2SAT 95–100; BMI 16.4
[2024-10-05] MEDS: KCl 40 mEq in 0.9 % Sodium Chl 40 MEQ/1,000 ML IV.SOLN 250 MEQ IVCONT (00:30)
--- NOTE | 2024-10-05 02:17 | HO.SKINPHOTO ---
Location: Right medial leg Category: abrasion Location: Left anterior thigh Category: abrasion
[2024-10-05] MEDS: fentaNYL citrate/NS 1,000 MCG/100 ML PLAST..BAG 20 MCG IVCONT ×2 (03:16→08:22)
[2024-10-05 05:07] LABS: VBG HCO3 24 mmol/L (22-26); VBG O2 % Saturation 95.0 %
[2024-10-05 05:08] LABS: MANUAL DIFF FLAG NO
[2024-10-05 05:10] LABS: Hematocrit 30.7 % (37.0-47.0); Hemoglobin 9.7 g/dl (12.0-16.0); Imm Gran Abs Auto 0.01 X10*3/uL (0.00-0.03); Imm Gran Pct Auto 0.2 % (0.0-0.4); Lymphocytes Absolute Auto 1.8 X10*3/uL (1.2-4.9); Mean Corpuscular HGB Conc 31.6 g/dl (31.0-35.0); Mean Corpuscular Hemoglobin 25.1 pg (27.0-33.0); Mean Corpuscular Volume 79.5 fL (80.0-98.0); NRBC Abs Auto 0.000 X10*3/uL (0.0-0.012); NRBC Pct Auto 0.0 /100WBC (0.0-0.2); Platelet Count 307 X10*3/uL (160-400); Red Blood Count 3.86 X10*6/uL (4.20-5.50); White Blood Count 4.6 X10*3/uL (4.8-10.8)
[2024-10-05 05:12] LABS: Venous Blood Gas Refer to POC result
[2024-10-05 05:28] LABS: Albumin Level 3.1 g/dL (3.5-5.0); Anion Gap 12 (12-20); Blood Urea Nitrogen 8 mg/dL (9-16); Calcium 8.4 mg/dL (8.4-10.2); Carbon Dioxide 22 mmol/L (22-29); Chloride 110 mmol/L (96-108); Creatinine Clr Calc Pharmacy 108.5; Estimated Glomerular Filt Rate > 60; Magnesium 2.1 mg/dL (1.6-2.6); Potassium 4.3 mmol/L (3.3-5.1); Sodium 140 mmol/L (135-145)
--- NOTE | 2024-10-05 06:08 | PC.NURSE ---
Assumed care at 1900. Patient continues on ventilator support. Propofol and fentanyl gtts running per MAY with good effect, RASS -3. SR on tele, HR 60s-80s. Levophed gtt running per MAY for BP support. See vent assessment. Abdomen soft and flat, active bowel sounds x4, OGT clamped. Nath catheter in place draining concentrated cloudy urine. UOP approx 15-30mL/hr, COAT CHECKER Martha notified and 1L NS with 40 KCl ordered and administered per MAY. Skin warm and dry, extensive bruising throughout entire body at various stages of healing. Slight blanchable redness to buttocks, pink foam applied. [place] foams applied prophylactically to bilateral heels. Abrasions noted to BLE, see skin note photos. Patient repositioned Q2HR, bed locked in lowest position, bed alarm on.?
[2024-10-05] MEDS: Chlorhexidine Gluc Oral Rinse 15 ML MOUTHWASH BUCCAL ×2 (08:18→14:45)
[2024-10-05] MEDS: Albumin Human 25 % 100 ML IV ×3 (08:19→20:27)
[2024-10-05] MEDS: methADONE HCl 20 MG/2 ML ORAL.CONC 40 MG PO (08:40)
--- NOTE | 2024-10-05 09:35 | MHC.CLN ---
F/U PT IS MODERATELY MALNOURISHED PT IS MILDLY DEPLETED SUBCUTANEOUS FAT AND MUSCLE MASS WITH CHRONIC POOR APPETITE R/T POLYSUBSTANCE ABUSE WT STABLE X 1 YEAR HOWEVER BELOW IBW RANGE DISCUSSED AT ROUNDS WITH MD-PLAN FOR POSSIBLE EXTUBATION TODAY PT IS CURRENTLY NPO FOLLOWING FOR DIET ADVANCEMENT
--- NOTE | 2024-10-05 09:44 | P.PNCC_ITS ---
Subjective Subjective Date of Service: 10/05/24 Interval History: 34-year-old lady with underlying hepatitis-C, syphilis, polysubstance abuse, migraines found unresponsive by her family and transported to emergency room with Narcan given by EMS with patient becoming extremely agitated despite maximum dose Precedex and multiple parenteral sedatives requiring intubation and ventilatory support. No events overnight. Critical Care Time (minutes): 45 Physical Exam 2 Vital Signs: Vital Signs: Last Vital Signs Temp 99.1 F 10/05/24 09:00 Pulse 74 10/05/24 09:29 Resp 16 10/05/24 09:00 BP 111/63 10/05/24 09:29 Pulse Ox 99 10/05/24 09:00 O2 Del Method Mechanical Ventil ation 10/05/24 09:00 FiO2 25 10/05/24 09:00 BMI result Body Mass Index 16.4 Const: General: no acute distress and other (Sedated on ventilatory support) Eyes: Sclerae: sclerae normal EOM: EOMs intact bilaterally Neck: Neck: Yes no lymphadenopathy, Yes trachea midline and Yes supple Resp: Effort & Inspection: normal respiratory effort and no respiratory distress Auscultation: clear to auscultation bilaterally Cardio: Rate: regular rate Rhythm: regular rhythm Heart sounds: no gallops, no murmurs and no rubs GI: Palpation (GI): Soft to palpation and Other GI palpation findings present ( Nontender) Auscultation: normal bowel sounds Extrem: General: Yes no pedal edema, No clubbing and No cyanosis Objective Data Labs 10/05/24 05:01 10/05/24 05:01 Labs: Laboratory Results - last 24 hr 10/04/24 10/05/24 10/05/24 12:33 05:01 05:02 WBC 4.6 L RBC 3.86 L Hgb 9.7 L Hct 30.7 L MCV 79.5 L MCH 25.1 L MCHC 31.6 RDW 17.2 H Plt Count 307 MPV 8.5 L Immature Gran % (Auto) 0.2 Neut % (Auto) 50.4 Lymph % (Auto) 38.3 Nuckolls % (Auto) 10.2 Eos % (Auto) 0.7 Baso % (Auto) 0.2 Lymph # (Auto) 1.8 [place]olls # (Auto) 0.5 Eos # (Auto) 0.0 Baso # (Auto) 0.0 Abs Immat Gran (auto) 0.01 Absolute Neuts (auto) 2.3 Absolute Nucleated RBC 0.000 Nucleated RBC % (auto) 0.0 VBG pH 7.51 H VBG pCO2 30 VBG pO2 74 VBG HCO3 24 VBG O2 Saturation 95.0 VBG Base Excess 2.1 Sodium 140 Potassium 4.3 D Chloride 110 H Carbon Dioxide 22 Anion Gap 12 BUN 8 L Creatinine 0.67 Estim Creat Clear Calc 108.5 Estimated GFR > 60 Random Glucose 95 Calcium 8.4 D Phosphorus 2.7 Magnesium 2.1 Total Creatine Kinase 373 H Albumin 3.1 L Progress Note: A&P Assessment and plan (1) Polysubstance abuse: Status: Acute (2) Agitation: Status: Acute Plan Assessment: 34-year-old lady admitted with polysubstance abuse resulting in acute agitation requiring multiple sedative drips and intubation for airway protection. Plan: Neuro: Acute agitation from polysubstance abuse, continue to titrate off sedatives drip. Cardiac: No acute issues. Pulmonary: Intubated for airway protection, continue to titrate off ventilatory support as tolerated. Renal: No acute issues. Endo: No acute issues. GI: No acute issues. ID: Syphilis positive with no documentation of subsequent treatment, started on penicillin G. Heme/Onc: No acute issues. Psych: No acute issues. Miscellaneous: No acute issues. Prophylaxis: Heparin, famotidine Diet: NPO Critical care time spent: 45 minutes Quality Stroke Does the patient have a stroke diagnosis?: No VTE Prior VTE?: No VTE Risk Level:: Medical - moderate - high VTE Device Contraindication: N/A - Device Ordered VTE Drug Contraindication: N/A - Med Ordered
--- NOTE | 2024-10-05 13:19 | MHC.CM.PN ---
Addendum entered by Margaret Green 10/05/24 15:03: Met with pt's mother/HCP Krissy per request. Krissy states she just returned from court where she was evicted from her apartment d/t lack of employment/failure to pay rent. She is worried about pt not having a stable environment to return to. She is requesting INPT detox for pt. Educated Krissy on process for CARE team consult including medical stability and pt participation. CM to follow Original Note: Pt extubated after OD - lethargic but alert and able to converse. States she resides with family and receives methadone at [facility] in [place]. Does not state any barriers to care. HCP on file and verified: pt has transportation to home. CARE team to see pt before d/c to home. CM to follow
--- NOTE | 2024-10-05 18:04 | PC.NURSE ---
patient stable on vent at start of shift. during morning rounds MD stated SAT and PSV trials with possible extubation if successful on both. patient was weened down on pressure support ventilation and weened from sedation, was following commands and calm so extubated with RT and RN at the bedside. patient groggy at first but was able to hold conversation, breathing was relaxed even and unlabored on 1L nasal cannula with end-tidal capnography. vitals stable throughout extubation and into afternoon. later weened to room air while maintaining cannula for capnography. passed nursing swallow and was given regular diet. patient slept most of the afternoon, woke up for occasional visitors levophed weened off slowly throughout the day see MAR. Robles with case management called down to speak with proxy about plan of care, addiction medicine consult placed. patient is calm and cooperative with care, with stable vitals at 18:00
[2024-10-06] VITALS (11 sets, daily range): BP systolic 93–119; BP diastolic 46–69; PULSE 62–92; RESP 11–20; TEMP 36.6–37.2; O2SAT 96–99; BMI 15.7
[2024-10-06] MEDS: Albumin Human 25 % 100 ML IV (01:03)
[2024-10-06 05:12] LABS: VBG HCO3 28 mmol/L (22-26); VBG O2 % Saturation 95.0 %; Venous Blood Gas Refer to POC result
[2024-10-06 05:17] LABS: Hematocrit 27.2 % (37.0-47.0); Hemoglobin 8.6 g/dl (12.0-16.0); Imm Gran Abs Auto 0.01 X10*3/uL (0.00-0.03); Imm Gran Pct Auto 0.3 % (0.0-0.4); Lymphocytes Absolute Auto 1.6 X10*3/uL (1.2-4.9); MANUAL DIFF FLAG SCAN; Mean Corpuscular HGB Conc 31.6 g/dl (31.0-35.0); Mean Corpuscular Hemoglobin 24.9 pg (27.0-33.0); Mean Corpuscular Volume 78.8 fL (80.0-98.0); NRBC Abs Auto 0.000 X10*3/uL (0.0-0.012); NRBC Pct Auto 0.0 /100WBC (0.0-0.2); Platelet Count 265 X10*3/uL (160-400); Red Blood Count 3.45 X10*6/uL (4.20-5.50); SCAN SMEAR FLAG 1; White Blood Count 3.8 X10*3/uL (4.8-10.8)
[2024-10-06 05:31] LABS: Albumin Level 4.6 g/dL (3.5-5.0); Anion Gap 14 (12-20); Blood Urea Nitrogen 7 mg/dL (9-16); Calcium 9.4 mg/dL (8.4-10.2); Carbon Dioxide 23 mmol/L (22-29); Chloride 106 mmol/L (96-108); Creatinine Clr Calc Pharmacy 103.9; Estimated Glomerular Filt Rate > 60; Magnesium 1.9 mg/dL (1.6-2.6); Potassium 3.5 mmol/L (3.3-5.1); Sodium 139 mmol/L (135-145)
--- NOTE | 2024-10-06 06:02 | PC.NURSE ---
No significant event or change in physical status throughout the shift. Patient remains hemodynamically stable and has been mostly independent with activities in the room. Patient, however, still requires SB assist due to mild weakness when OOB and ambulating. Patient is fully alert, oriented, and appropriately interactive. Patient had some evening snacks and fluids and got some restful sleep. No sign of respiratory distress or episode of desaturation noted.
[2024-10-06] MEDS: methADONE HCl 20 MG/2 ML ORAL.CONC 40 MG PO (08:54)
[2024-10-06] MEDS: Potassium Chloride Packet 20 MEQ PACKET 40 MEQ PO (08:55)
--- NOTE | 2024-10-06 09:35 | MHC.CLN ---
F/U PT IS MODERATELY MALNOURISHED SEE ASSESSMENT DATED 10/04/24 FOR FULL DETAILS PT EXTUBATED DIET ADVANCED TO REGULAR RECOMMEND ADDING ENSURE TO INCREASE KCALS SUPP TO PROVIDE 700KCALS, 40G PROTEIN MONITOR PO INTAKE AND ENCOURAGE SUPPLEMENTS
--- NOTE | 2024-10-06 10:01 | MHC.CM.PN ---
Met with pt who was more alert and conversant but would doze still doze off : reviewed d/c planning needs: pt acknowledges CARE team consult for possible detox needs: states to contact her mother for post d/c needs including housing. Pt to transfer to the floor today for continued care. CM to follow
--- NOTE | 2024-10-06 10:10 | P.CDIM_ITS ---
PROVIDER RESPONSE TEXT: To clarify, the appropriate diagnosis supported by the clinical indicators: Underweight QUERY TEXT: PHYSICIAN'S DOCUMENTATION REQUEST Date of Query: 10/06/2024 10:02 AM EDT Patient Name: Cate Ritchie Admit Date: 10/04/2024 Dear Antwon Steve MD, A review of the medical record indicates additional documentation may be needed. Please review below and update the documentation accordingly. Clinical Indicators: Height: ( ) 5'8 Weight: ( ) 57 kg BMI: ( ) 19.1 Other Clinical Notes Supporting Significance of the BMI: Per Clinical Nutrition Assessment 10/04/24: mild depletion body fat orbital, mild depletion muscle mass mormonism patient is moderately malnourished If possible, please provide an associated diagnosis related to the abnormal BMI, such as: Underweight Weight loss Cachexia Anorexia Moderate Protein Calorie Malnutrition Other (explain) Clinically unable to determine (explain) Thank you, Mireille Harris RN Use of terms such as suspected, likely, concern for, or probable (associated with a specific diagnosis that is being evaluated, monitored, or treated as if it exists) are acceptable and can be coded in the inpatient setting, when documented at the time of discharge. Please use your independent medical judgment in providing your response. THIS QUERY IS PART OF THE PERMANENT MEDICAL RECORD
--- NOTE | 2024-10-06 10:16 | PM.CCPN ---
Subjective Subjective Date of Service: 10/06/24 Interval History: 34-year-old lady with underlying hepatitis-C, syphilis, polysubstance abuse, migraines found unresponsive by her family and transported to emergency room with Narcan given by EMS with patient becoming extremely agitated despite maximum dose Precedex and multiple parenteral sedatives requiring intubation and ventilatory support. Extubated 10/05/2024. No events overnigh Critical Care Time (minutes): 0 Physical Exam Vital Signs: Vital Signs: Last Vital Signs Temp 97.9 F 10/06/24 08:00 Pulse 92 10/06/24 09:00 Resp 16 10/06/24 09:00 BP 119/63 10/06/24 09:00 Pulse Ox 96 10/06/24 09:00 O2 Del Method Room Air 10/06/24 09:00 O2 Flow Rate 1 10/05/24 15:57 FiO2 25 10/05/24 10:00 BMI result Body Mass Index 15.7 Const: General: no acute distress, alert and awake Eyes: Sclerae: sclerae normal EOM: EOMs intact bilaterally Neck: Neck: Yes no lymphadenopathy, Yes trachea midline and Yes supple Resp: Effort & Inspection: normal respiratory effort and no respiratory distress Auscultation: clear to auscultation bilaterally Cardio: Rate: regular rate Rhythm: regular rhythm Heart sounds: no gallops, no murmurs and no rubs GI: Palpation (GI): Soft to palpation and Other GI palpation findings present ( Nontender) Auscultation: normal bowel sounds Extrem: General: Yes no pedal edema, No clubbing and No cyanosis Objective Data Labs 10/06/24 05:04 10/06/24 05:04 Labs: Laboratory Results - last 24 hr 10/06/24 10/06/24 05:04 05:05 WBC 3.8 L RBC 3.45 L Hgb 8.6 L Hct 27.2 L MCV 78.8 L MCH 24.9 L MCHC 31.6 RDW 16.7 H Plt Count 265 MPV 9.7 Immature Gran % (Auto) 0.3 Neut % (Auto) 45.9 Lymph % (Auto) 42.0 H Gilchrist % (Auto) 10.5 Eos % (Auto) 1.0 Baso % (Auto) 0.3 Lymph # (Auto) 1.6 Gilchrist # (Auto) 0.4 Eos # (Auto) 0.0 Baso # (Auto) 0.0 Abs Immat Gran (auto) 0.01 Absolute Neuts (auto) 1.8 L Absolute Nucleated RBC 0.000 Nucleated RBC % (auto) 0.0 Smear Tech's Comments VERIFIED VBG pH 7.53 H VBG pCO2 33 VBG pO2 72 VBG HCO3 28 H VBG O2 Saturation 95.0 VBG Base Excess 5.5 Sodium 139 Potassium 3.5 Chloride 106 Carbon Dioxide 23 Anion Gap 14 BUN 7 L Creatinine 0.60 Estim Creat Clear Calc 103.9 Estimated GFR > 60 Random Glucose 90 Calcium 9.4 D Phosphorus 3.7 Magnesium 1.9 Albumin 4.6 Progress Note: A&P Assessment and plan (1) Polysubstance abuse: Status: Acute (2) Agitation: Status: Acute Plan Assessment: 34-year-old lady admitted with polysubstance abuse resulting in acute agitation requiring multiple sedative drips and intubation for airway protection. Plan: Neuro: Acute agitation from polysubstance abuse, resolved. Cardiac: No acute issues. Pulmonary: Intubated for airway protection, extubated 10/05/2024. Renal: No acute issues. Endo: No acute issues. GI: No acute issues. ID: Syphilis positive with no documentation of subsequent treatment, started on penicillin G. Heme/Onc: No acute issues. Psych: No acute issues. Miscellaneous: No acute issues. Prophylaxis: Heparin Diet: Regular Quality Stroke Does the patient have a stroke diagnosis?: No VTE Prior VTE?: No VTE Risk Level:: Medical - moderate - high VTE Device Contraindication: N/A - Device Ordered VTE Drug Contraindication: N/A - Med Ordered
--- NOTE | 2024-10-06 11:11 | HO.WOUND ---
Wound Consult: Initial 34yr old female admitted to [facility] on 10/04/24- See progress notes and H&P for detailed history.? Wound consult placed for Right ankle and Left Thigh.? Patient agreeable to assessment and photo documentation.? Patient currently in ICU level of care awaiting downgrade to [facility]. Patient reports she does not inject into either area. We discussed Xylazine site coming out in areas other than injection sites. The right ankle she reports she has had for sometime she reports there are patterns of healing and reopening which is common in xylazine wound sites. The left thigh is not consistent with xylazine, unknown etiology patient reports it was filled with pus and was popped and has been improving since. Right Ankle on admission Right Ankle today 10/06/24 Etiology: ?Unknown Etiology ?Present on Admission Wound Bed: Dry stable scab Drainage / Odor: None Edges: ? well defined Elsa wound: improving erythema, dry desquamation noted mild induration noted no fluctuance or Warmth noted Pain: denies Goals of Treatment: ?May leave TAMEKA if opens and drainage occurs may cover with dry dressing. Left Thigh on Admission Left Thigh today 10/06/24 Etiology: ?Unknown Etiology ?Present on Admission Wound Bed: Dry stable scab Drainage / Odor: None Edges: ? well defined Elsa wound: improving erythema, no induration noted no fluctuance or Warmth noted Pain: denies Goals of Treatment: ?May leave TAMEKA if opens and drainage occurs may cover with dry dressing. Monitor for improving erythema if worsening request provider assessment. Recommendations: 1. Turn and Reposition every 2 hours and as needed for patient comfort.? Use pillows or wedges to support off loading positions. 2. Off Load all bony prominences with use of pillows and heel boots if needed.? Apply Preventative foams where needed. ? 3. Monitor for incontinence and moisture control, use barrier creams when needed for prevention and treatment. 4. Provide adequate and supplemental nutrition.? 5. Continue low air loss mattress. 6. When applicable maintain blood glucose levels per Providers order. Left Thigh and Right Ankle - Cleanse with routine cleansing, pat Dry. May leave WAX BLENDER if opens and drainage occurs may cover with a dry dressing and request new consult. Monitor for s/s of infection - reports to provider. Re-consult wound care Nurse for wound deterioration or wound changes.
[2024-10-06] MEDS: Naloxone HCl Nasal TAKE HOME 4 MG SPRAY 8 MG NOSTRILALT (12:17)
--- NOTE | 2024-10-06 12:18 | PC.NURSE ---
Against the insistence of the ICU environmental protection inspector and this RN, patient is leaving the hospital against medical advice. Education was given regarding the risks associated leaving the hospital against medial advice. Patient was told to seek out emergency medical attention if symptoms resume, for any new symptoms, and/or for any reason the patient feels necessary. IVs were removed. Take Home Narcan was given to the patient on discharge and charted to MAR. Patient was sent to be picked up by brother outside the hospital accompanied by ICU Staff in a wheelchair, belongings returned. patient signed AMA papers with 2 RN witness. Addiction and Crisis consults were able to visit with patient approx 1 hour before leaving the facility.
--- NOTE | 2024-10-06 13:07 | HO.SUDE ---
SUDE following OD Met with pt in 252 for a SUDE following an unintentional overdose on 10/04. Pt reported using 5 bags of heroin/fentanyl via the IV route daily. On the day of the overdose pt bought her supply from a different seller and did the same amount. Pt believes it is due to this that she ovedosed. Pt has been using both heroin and cocaine since the age of 20 and 22. Cocaine use is not alwasy daily and depends on available money. Pt states she initially started using intranasaly and via smoking. Pt denies any signifcant period of abstinence. Pt has been to ATS before and is planning on going to [facility] for ATS today. Pt denies a family history of DAVID but endorses a family history of depression and anxiety. She has positive risk factors for HIV and has a hx of hepC untreated and syphillis. Discussed harm reduction strategies and treatment options such as ATS, CSS, IOP. Pt has called and found a bed at [facility] in [place]. Pt to be brought there by her family. No further questions or concerns offered at this time. Pt encouraged to reach out to the ACS team if any questions arise. Discussed with Dr. Jin.
--- NOTE | 2024-10-06 13:25 | MHC.CARE ---
Referral to [facility] complete
--- NOTE | 2024-10-16 15:24 | PM.DS ---
DS: Providers Provider Date of Service: 10/06/24 Date of admission: 10/04/24 06:26 Date of discharge: 10/06/24 Primary care physician: Unknown Physician Consults: 10/04/24 20:19 Consult to Wound Care Routine Reason for consultation: Abrasions to BLE 10/05/24 15:07 Addiction Medicine Provider Routine Consulting Provider: Addiction Covering Reason for consultation: assess for INPT detox needs 10/06/24 11:12 Inpt CARE Team Crisis Consult Stat Comment: Reason for consultation: Intentional polysubstance overdose DS: Diagnosis Discharge Diagnosis (1) Polysubstance abuse: Status: Inactive (2) Agitation: Status: Resolved DS: Summary Hospital Course Hospital Course: 34-year-old lady with underlying hepatitis-C, syphilis, polysubstance abuse, migraines found unresponsive by her family and transported to emergency room with Narcan given by EMS with patient becoming extremely agitated despite maximum dose Precedex and multiple parenteral sedatives requiring intubation and ventilatory support. Extubated 10/05/2024. Patient evaluated by crisis team and deemed not to be a danger to herself. Patient discharged home with self-care. Time Attestation Total time managing care of this patient today: 45 mintues. Discharge Coordination Time (in mins): 30 Quality: Safe Use of Opioids Does Pt have an Active Cancer Diagnosis on the Problem List?: No Quality: Stroke Does the patient have a stroke diagnosis?: No Physical Exam Vital Signs: Vital Signs: Last Vital Signs Temp 97.9 F 10/06/24 08:00 Pulse 67 10/06/24 10:00 Resp 11 L 10/06/24 10:00 BP 93/54 L 10/06/24 10:00 Pulse Ox 98 10/06/24 10:00 O2 Del Method Room Air 10/06/24 10:00 O2 Flow Rate 1 10/05/24 15:57 FiO2 25 10/05/24 10:00 BMI result Body Mass Index 15.7 Const: General: no acute distress, alert and awake Eyes: Sclerae: sclerae normal EOM: EOMs intact bilaterally Neck: Neck: Yes no lymphadenopathy, Yes trachea midline and Yes supple Resp: Effort & Inspection: normal respiratory effort and no respiratory distress Auscultation: clear to auscultation bilaterally Cardio: Rate: regular rate Rhythm: regular rhythm Heart sounds: no gallops, no murmurs and no rubs GI: Palpation (GI): Soft to palpation and Other GI palpation findings present ( Nontender) Auscultation: normal bowel sounds Extrem: General: Yes no pedal edema, No clubbing and No cyanosis Discharge Plan Discharge Anticipated Discharge Date/Time: 10/06/24 11:54 Patient Disposition: Home, Self-Care Discharge Diagnosis: Polysubstance abuse Referrals: Physician,Unknown J [Primary Care Provider, Medical] - 1 Week Discharge Medications: New naloxone [Narcan] 4 mg/actuation spray,non-aerosol 4 mg intranasal Q2M PRN (Reason: opioid overdose) Qty: 2 6RF Rx Instructions: spray 1 dose into ONE nostril; alternate nostrils w each dose until help arrives Continued methadone [Methadone Intensol] 10 mg/mL Concentrate 70 mg PO DAILY Discharge Orders: Discharge Order (Routine); Ordered 10/06/24 Ordered By: Antwon Steve Activity on Discharge: As tolerated Stand Alone Forms: Patient Portal Discharge page Print Language: Syriac Care Plan Goals: Patient to follow-up with outpatient substance abuse services. Health Concerns: Substance abuse Plan of Treatment: Patient with outpatient substance abuse services. Assessment: Evaluated by care team with no concern for self-harm. Discharge Date/Time: 10/06/24 12:21
== END 2024-10-06 12:21 | disposition home or self-care (01) | DRG 812 ==
LOC: HO.ED 06:08 → HO.EDOVER 06:32 → HO.ICU 06:50
PROVIDERS: Admitting Provider Registered Nurse Community Health; Emergency Provider Emergency Medicine; Visit Provider Internal Medicine Pulmonary Disease
DX: T50.911A Poisoning by multiple unspecified drugs, medicaments and biological substances, accidental (unintentional), initial encounter (principal); I95.2 Hypotension due to drugs; A53.9 Syphilis, unspecified; B19.20 Unspecified viral hepatitis C without hepatic coma; F11.20 Opioid dependence, uncomplicated; F19.10 Other psychoactive substance abuse, uncomplicated; R45.1 Restlessness and agitation; T42.75XA Adverse effect of unspecified antiepileptic and sedative-hypnotic drugs, initial encounter; R63.6 Underweight; Z68.1 Body mass index [BMI] 19.9 or less, adult; Z71.51 Drug abuse counseling and surveillance of drug abuser
CPT/HCPCS: 36415; 71045; 80048; 80076; 80307; 82040; 82550; 82803; 83735; 84100; 84702; 85025; 94002; 94799; 99285; J0561; J1200; J1308; J1630; J1650; J2250; J2704; J3010; J3360; J3480; J3486; P9047; S9485

== ENCOUNTER → 2024-10-04 06:24 | Outpatient (BNV) | payer OTHER, SELFPAY | PROVIDERS: Admitting Provider Registered Nurse Community Health; Emergency Provider Emergency Medicine; Visit Provider Radiology Diagnostic Radiology | DX: Z99.11 Dependence on respirator [ventilator] status (principal) | CPT/HCPCS: 71045 ==

== ENCOUNTER → 2024-10-04 06:26 | Outpatient (BNV) | payer OTHER, SELFPAY | PROVIDERS: Admitting Provider Registered Nurse Community Health; Emergency Provider Emergency Medicine; Visit Provider Internal Medicine Pulmonary Disease | DX: F19.10 Other psychoactive substance abuse, uncomplicated (principal); R45.1 Restlessness and agitation | CPT/HCPCS: 99291 ==

== ENCOUNTER 2024-11-22 12:38 | Emergency (ER) | payer OTHER, SELFPAY ==
[2024-11-22 12:54] VITALS: BP 158/87; PULSE 100; RESP 22; TEMP 36.4; O2SAT 100; BMI 23.0
--- NOTE | 2024-11-22 12:59 | ED_ITS ---
HPI - General Adult General Chief complaint: Recheck/Abnormal Lab/Rx Stated complaint: follow up shot Time Seen by Provider: 11/22/24 13:57 Related Data Home Medications ?Medication ?Instructions ?Recorded ?Confirmed methadone 10 mg/mL oral 70 mg PO DAILY 01/04/23/04/07 concentrate (Methadone Intensol) Previous Rx's ?Medication ?Instructions ?Recorded naloxone 4 mg/actuation nasal 4 mg intranasal Q2M PRN opioid 10/06/24 spray (Narcan) overdose #2 ea Allergies Allergy/AdvReac Type Severity Reaction Status Date / Time No Known Allergies (No Known Allergy Verified 11/22/24 12:55 Allergies*) [facility] Past Medical History Medical History Polysubstance abuse Scoliosis Hepatitis C Social History Social History Household Members: Unknown / Unable to assess Housing: Unknown / Unable to assess Alcohol intake: current Alcohol intake frequency: a few times a month Patient Tobacco Use Status: Tobacco use Unknown Substance Use Type: Heroin Advance Directives: No Advance Directives Information Provided: Yes service: No Physical Exam ED Vital Signs: Vital Signs - 24 hr 11/22/24 12:54 11/22/24 14:44 Temperature 97.6 F 97.6 F Pulse Rate 100 100 Respiratory Rate 22 H 22 H Blood Pressure 158/87 H 158/87 H Pulse Oximetry 100 100 Oxygen Delivery Method Room Air Room Air BMI result Body Mass Index 23.0 Course Course Course Narrative: This is a Rapid Medical Examination (RME) performed by Sharmila Peterson PA-C in triage. Full HPI, ROS, assessment and treatment plan per primary provider in the Main ED. Hx: 34 yo F presents requesting 2nd syphillis injection. was evaluated at [facility] 10 days ago where she recieved her first shot. she was informed she needed an injection every week x 3 weeks. she is concerned now that it has been 10 days since last shot. Plan: syphillis treatment Reevaluation(s) Reevaluation #1: This is a duplicate note. Please see Laurence's note regarding patient's visit on 11/22/2024. Medications Administered Discontinued Medications Generic Name Dose Route Start Last Admin Trade Name Freq PRN Reason Stop Dose Admin Penicillin G Benzathine 2,400,000 unit 11/22/24 14:09 11/22/24 14:31 Penicillin G Benzathine 2,400,000 Unit/4 Ml Syringe IM 11/22/24 14:10 2,400,000 unit ONCE ONE Administration Discharge Plan Discharge Clinical Impression: Syphilis, late latent Patient Disposition: Home, Self-Care Additional Instructions: You were given your second dose of penicillin. You are due for a 3rd does in 1 week. IF you are prescribed home medications and/or you are taking over the counter medications at home - it is very important you continue to do so as prescribed / directed unless told otherwise. Follow up with your primary care provider. Return to the emergency department immediately if your symptoms worsen or if you develop any numbness, tingling, dizziness, shortness of breath, difficulty breathing, chest pain, blurry vision, loss of vision, nausea, vomiting, abdominal pain, fever, chills, back pain, or any other complaints. Please see the information below about our Patient Portal. If you are not yet enrolled in the [facility] Patient Portal, you will receive an enrollment email invitation following your visit to any [facility] care setting. You may also self-enroll in the Patient Portal by visiting our website: [email or web address] The following information is required to access the Patient Portal: - Your [facility] Medical Record Number - Your personal home email address (must match what is in your electronic medical record, Registration staff can assist with this) - Name - Date of Capabilities of the Patient Portal: - Message some providers - View upcoming appointments - Access your health summary, medical history, and visit history - View current conditions and allergies - View procedure and lab results - View your medications, including guidelines, side effects, and precautions - Complete pre-appointment questionnaires requested by your provider - Ready summary reports of your office visits and procedures To access the Patient Portal Mobile Bryan, follow these directions: - Search [employer] in the Bryan Store or Google Play Store - Download the Bryan - Search for [facility] - Enter your login/password Prescriptions: No Action methadone [Methadone Intensol] 10 mg/mL Concentrate 70 mg PO DAILY naloxone [Narcan] 4 mg/actuation spray,non-aerosol 4 mg intranasal Q2M PRN (Reason: opioid overdose) Qty: 2 6RF Rx Instructions: spray 1 dose into ONE nostril; alternate nostrils w each dose until help arr katerine [facility] [Primary Care Provider, Primary Care] Interventions: ED Discharge Assessment Last Done: 11/22/24 14:44 Discharge Date/Time: 11/22/24 14:44 Print Language: French
--- NOTE | 2024-11-22 14:10 | ED.GENADULT ---
HPI - General Adult General Chief complaint: Recheck/Abnormal Lab/Rx Stated complaint: follow up shot Time Seen by Provider: 11/22/24 13:57 Source: patient Mode of arrival: ambulatory Limitations: no limitations History of Present Illness HPI narrative: Patient is a 34 year old assigned female at with a history polysubstance use on methadone, CMV infection, and hepatitis C presenting to the emergency department for completion of syphilis treatment. Patient states that she was seen at [facility] a little over a week ago and was diagnosed with late latent syphilis. Patient reports receiving her first penicillin injection at [facility] while she was there and was scheduled to receive 2 additional weekly injections. Patient states that she was unable to follow-up at [facility] for completion of treatment due to enrolling in [facility]. Patient reports being asymptomatic for syphilis and denies any other complaints at this time. Related Data Home Medications ?Medication ?Instructions ?Recorded ?Confirmed methadone 10 mg/mL oral 70 mg PO DAILY 01/04/23 06/03/23 concentrate (Methadone Intensol) Previous Rx's ?Medication ?Instructions ?Recorded naloxone 4 mg/actuation nasal 4 mg intranasal Q2M PRN opioid 10/06/24 spray (Narcan) overdose #2 ea Allergies Allergy/AdvReac Type Severity Reaction Status Date / Time No Known Allergies (No Known Allergy Verified 11/22/24 12:55 Allergies*) Review of Systems Constitutional: Constitutional: Reports as per HPI Eyes: Eyes: Reports as per HPI ENT: Reports as per HPI Cardiovascular: Cardiovascular: Reports as per HPI Respiratory: Respiratory: Reports as per HPI Gastrointestinal: Gastrointestinal: Reports as per HPI Genitourinary: Genitourinary: Reports as per HPI Musculoskeletal: Musculoskeletal: Reports as per HPI Integumentary/Breasts: Skin/Breast: Reports as per HPI Neurologic: Reports as per HPI Psychiatric: Psychiatric: Reports as per HPI Endocrine: Endocrine: Reports as per HPI Hematologic/Lymphatic: Hematologic/Lymphatic: Reports as per HPI Allergic/Immunologic: Allergic/Immunologic: Reports as per HPI PMFSH Past Medical History Attestation statement: The following information was validated with the patient. Source: old records reviewed and nursing notes reviewed Medical History Polysubstance abuse Scoliosis Hepatitis C Social History Social History Household Members: Unknown / Unable to assess Housing: Unknown / Unable to assess Alcohol intake: current Alcohol intake frequency: a few times a month Patient Tobacco Use Status: Tobacco use Unknown Substance Use Type: Heroin Advance Directives: No Advance Directives Information Provided: Yes service: No Physical Exam ED Vital Signs: Vital Signs - 24 hr 11/22/24 12:54 11/22/24 14:44 Temperature 97.6 F 97.6 F Pulse Rate 100 100 Respiratory Rate 22 H 22 H Blood Pressure 158/87 H 158/87 H Pulse Oximetry 100 100 Oxygen Delivery Method Room Air Room Air BMI result Body Mass Index 23.0 Const General: cooperative, no acute distress, alert and awake Nutritional Appearance: well nourished Orientation/consciousness: patient oriented x3 HENMT Head: Yes normal to inspection and Yes atraumatic Ears: hearing grossly normal bilaterally and external ears normal General nose exam: Normal external nose present, no nasal discharge noted and no epistaxis Face and sinus: Yes normal facial exam, No abrasion and No laceration Mouth: Normal oral and palatal mucosa present, no drooling and no muffled voice Eyes General: appearance normal, both eyes and all related structures Periorbital: periorbital findings normal Eyelids: Yes eyelids normal Conjunctivae: conjunctivae normal Pupils: Equal, round and reactive pupils present EOM: EOMs intact bilaterally Neck Neck: Yes normal visual inspection and Yes full ROM Resp Effort & Inspection: normal respiratory effort and able to speak in complete sentences Neuro General: patient oriented x3, moves all extremities and CN's II-XI intact bilaterally Cranial nerves: Yes Equal, round and reactive pupils present Cognition (Neuro): normal cognition Extrem General: Yes normal to inspection, Yes full ROM and Yes capillary refill normal Psych Appearance: grossly normal Mental Status: mental status grossly normal Affect: normal affect Attitude: cooperative Thought process: Normal thought process present Thought content: Normal thought content present Insight: Good insight present (Psych) Medications Administered Discontinued Medications Generic Name Dose Route Start Last Admin Trade Name Freq PRN Reason Stop Dose Admin Penicillin G Benzathine 2,400,000 unit 11/22/24 14:09 11/22/24 14:31 Penicillin G Benzathine 2,400,000 Unit/4 Ml Syringe IM 11/22/24 14:10 2,400,000 unit ONCE ONE Administration Medical Decision Making Medical Decision Making [facility] Narrative: Patient is a 34 year old assigned female at with a history polysubstance use on methadone, CMV infection, and hepatitis C presenting to the emergency department for completion of syphilis treatment. Patient's physical exam was unremarkable. I explained my physical exam findings to the patient. I answered all questions asked by the patient. Patient was given her next dose of 2.4 million units of Pen. I explained to the patient that she needs to receive her 3rd and final dose after 1 week. I stressed the importance of the patient taking her medication as directed (either prescribed or as the over the counter packaging recommends). I stressed the importance of the patient following up with her primary care provider. I stressed the importance of the patient returning to the emergency department immediately if her symptoms were to worsen or if she were to develop any dizziness, shortness of breath, difficulty breathing, chest pain, blurry vision, loss of vision, nausea, vomiting, abdominal pain, fever, chills, back pain, or any other complaints. Patient verbalized agreement and understanding with this treatment plan and discharge. Differential Diagnosis Differential Diagnoses: The differential diagnosis associated with the presentation includes Syphilis treatment Discharge Plan Discharge Clinical Impression: Syphilis, late latent Patient Disposition: Home, Self-Care Additional Instructions: You were given your second dose of penicillin. You are due for a 3rd does in 1 week. IF you are prescribed home medications and/or you are taking over the counter medications at home - it is very important you continue to do so as prescribed / directed unless told otherwise. Follow up with your primary care provider. Return to the emergency department immediately if your symptoms worsen or if you develop any numbness, tingling, dizziness, shortness of breath, difficulty breathing, chest pain, blurry vision, loss of vision, nausea, vomiting, abdominal pain, fever, chills, back pain, or any other complaints. Please see the information below about our Patient Portal. If you are not yet enrolled in the [facility] Patient Portal, you will receive an enrollment email invitation following your visit to any [facility] care setting. You may also self-enroll in the Patient Portal by visiting our website: [email or web address] The following information is required to access the Patient Portal: - Your [facility] Medical Record Number - Your personal home email address (must match what is in your electronic medical record, Registration staff can assist with this) - Name - Date of Capabilities of the Patient Portal: - Message some providers - View upcoming appointments - Access your health summary, medical history, and visit history - View current conditions and allergies - View procedure and lab results - View your medications, including guidelines, side effects, and precautions - Complete pre-appointment questionnaires requested by your provider - Ready summary reports of your office visits and procedures To access the Patient Portal Mobile Bryan, follow these directions: - Search [employer] in the Bryan Store or [employer] Store - Download the Bryan - Search for [facility] - Enter your login/password Prescriptions: No Action methadone [Methadone Intensol] 10 mg/mL Concentrate 70 mg PO DAILY naloxone [Narcan] 4 mg/actuation spray,non-aerosol 4 mg intranasal Q2M PRN (Reason: opioid overdose) Qty: 2 6RF Rx Instructions: spray 1 dose into ONE nostril; alternate nostrils w each dose until help arrives [facility], [facility]] Interventions: ED Discharge Assessment Last Done: 11/22/24 14:44 Discharge Date/Time: 11/22/24 14:44 Print Language: Luxembourger
[2024-11-22 14:44] VITALS: BP 158/87; PULSE 100; RESP 22; TEMP 36.4; O2SAT 100
--- NOTE | 2024-11-22 14:45 | PC.NURSE ---
Pt in NAD VSS no questions or complaints
== END 2024-11-22 14:44 | disposition home or self-care (01) ==
PROVIDERS: Emergency Provider Emergency Medicine Emergency Medical Services
DX: A53.0 Latent syphilis, unspecified as early or late (principal)
CPT/HCPCS: 96372; 99282; 99284; J0561

== ENCOUNTER 2025-02-03 19:12 | Emergency (ER) | payer OTHER, SELFPAY ==
[2025-02-03] VITALS (7 sets, daily range): BP systolic 84–132; BP diastolic 44–76; PULSE 51–84; RESP 15–16; TEMP 36.6; O2SAT 93–100; BMI 22.0
--- NOTE | 2025-02-03 19:38 | MHC.EDTECH ---
Patient belongings in [facility], shelf 7
--- NOTE | 2025-02-03 19:49 | PC.NURSE ---
pt biba reports she used heroin with intentions of getting high, denies intentions of si/hi. axox3 on arrival but quickly falls asleep, awakens to tactile stimuli. pt placed on cardiac, o2 and end tital monitoring. per ems pt had a bag with 2 bundles [address] took her bag at scene. pt was changed over to hospital attire on arrival, belongings secured. was notified her mom was in the waiting room, made aware of plan of care to monitor, agreeable with this. mom stated she had just left detox/rehab and was doing well there. she requested the pt go back, let her know that we will offer this to the patient and encourage her but the patient has to make this decision. mom verbalized understanding and stated she will leave for the night and requested she be called for updates/emergencies. pt is awaiting eval by ed provider, keegan at this time.
--- NOTE | 2025-02-03 21:08 | ED.OVERDOSE ---
HPI - Overdose General Chief Complaint: Overdose Stated Complaint: OD, 2 bags of heroine Time Seen by Provider: 02/03/25 20:59 Source: patient, family, EMS, RN notes reviewed and old records reviewed Mode of arrival: EMS Limitations: altered mental status History of Present Illness ED Provider: Dr. Yocasta Moore HPI Narrative: 35-year-old female with a history of opioid use disorder, recently released from rehab presenting with an apparent opioid intoxication. EMS reports they were called for altered mental status in a patient with history of opiate use. Police reportedly found to bundles of heroin in the cigarette box in the patient's purse. Patient is resistant to answering questions. Per EMS, her boyfriend found her acting ?weird ?. Reports she has been drinking and using drugs. Last use was approximately an hour before EMS was called. There was a question of potential overdose so the patient was sent to the emergency department for observation and further evaluation. Patient arrives to the Emergency Department somewhat agitated but quickly falls asleep. She admits to using to bundles of heroin today. Denies other illicit substance use. Denies intentional self-harm. Related Data Home Medications ?Medication ?Instructions ?Recorded ?Confirmed methadone 10 mg/mL oral 70 mg PO DAILY 01/04/23 06/03/23 concentrate (Methadone Intensol) Previous Rx's ?Medication ?Instructions ?Recorded naloxone 4 mg/actuation nasal 4 mg intranasal Q2M PRN opioid 10/06/24 spray (Narcan) overdose #2 ea Allergies Allergy/AdvReac Type Severity Reaction Status Date / Time No Known Allergies (No Known Allergy Verified 02/03/25 19:19 Allergies*) Review of Systems Review of Systems: As per HPI, full review of systems performed and negative but for the above mentioned pertinent positives and negatives. [facility] Past Medical History Medical History Polysubstance abuse Scoliosis Hepatitis C Social History Social History Household Members: Unknown / Unable to assess Housing: Unknown / Unable to assess Alcohol intake: current Alcohol intake frequency: a few times a month Patient Tobacco Use Status: Tobacco use Unknown Substance Use Type: Heroin Advance Directives: No Advance Directives Information Provided: No service: No Physical Exam Exam: Exam: GENERAL: Appears intoxicated, GCS 13, eyes open to voice, slurred speech, no acute distress. SKIN: Normal skin color for ethnicity, warm, dry, no rashes noted. HEENT: Normocephalic, atraumatic, no stridor, posterior oropharynx nonerythematous, dentition intact, EOMI, pupils are pinpoint bilaterally, reactive to light. NECK: Soft, supple, no step-offs, no deformities, no lymphadenopathy. CHEST: Heart regular tachycardia, no murmurs, symmetric chest rise and fall. PULMONARY: Clear to auscultation bilaterally, diminished at the bases, no labored breathing, no wheezes/rhales/rhonchi. ABDOMINAL: Soft, nondistended, positive bowel sounds in all quadrants. : Deferred. MUSCULOSKELETAL: Normal tone, full range of motion, no deformities, no peripheral edema. NEURO: GCS 13, eyes open to voice, slightly slurred speech, CN II through XII intact, equal strength and sensation bilateral upper and lower extremities, no focal neurologic deficits. PSYCHIATRIC: Flat affect, poor eye contact. Vital Signs: Vital Signs: Last Vital Signs Temp 98.0 F 02/04/25 06:02 Pulse 55 02/04/25 06:02 Resp 16 02/04/25 06:02 BP 87/44 L 02/04/25 06:02 Pulse Ox 98 02/04/25 06:02 O2 Del Method Room Air 02/04/25 06:02 O2 Flow Rate 2 02/03/25 21:47 BMI result Body Mass Index 22.0 Medications Administered Discontinued Medications Generic Name Dose Route Start Last Admin Trade Name Freq PRN Reason Stop Dose Admin Lactated Ringer's 1,000 mls @ 999 mls/hr 02/04/25 02:35 02/04/25 04:04 Lr IV 02/04/25 03:35 Infused .Q1H1M ONE Infusion Medical Decision Making Medical Decision Making MDM Narrative: Patient presents with a chief complaint of possible overdose. Differential diagnosis includes life-threatening toxidrome such as anticholinergic syndrome, serotonin syndrome, sympathomimetic, opioid induced, sedative hypnotic, among others. Also includes co-ingestions, acidosis, intracranial process such as mass, hemorrhage, or CVA. Patient evaluated to determine if there is adequate GCS to maintain their airway as well as for hemodynamic stability. Placed on nuclear monitoring technician for blood pressure, heart rhythm and oxygen levels. Frequent reevaluations to ensure no worsening neurologic or hemodynamic instability. Patient clinically is consistent with an opioid intoxication if not overdose. Her vital signs are relatively normal though she is slightly bradycardic, hypotensive and bradypneic. She does not currently require Narcan as she is easily arousable with a respiratory rate that stays over 12. She is nontoxic in appearance, able to ambulate in the emergency department without assistance to the restroom. Was given a L of IV fluid which improved her blood pressure only slightly. She tells me that she lives in a low range and given her level of mentation and appropriate response, she is probably right. Certainly no evidence of infectious process, ischemia, neurologic deficit. Patient is refusing inpatient services at this time. She would like to be discharged to have follow up as an outpatient. Her mother's coming to pick her up. Provided with a Narcan kit for home. Stable for discharge. Differential Diagnosis Differential Diagnoses: The differential diagnosis associated with the presentation includes (as above) Admission/Observation Consideration of admission/observation: Escalation of care including admission/observation considered Independent Interpretation I performed an independent interpretation of an: Rhythm Strip Interpretation: Sinus bradycardia Independent Historian Clinical information obtained from an independent historian. History obtained from or confirmed by: Parent and EMS External Record Review External record reviewed: Inpatient record Prescription Management I considered prescription management with: Other (Narcan) Chronic Conditions Patient?s care impacted by: Other (Opioid use disorder) Social Determinants Patient?s care significantly limited by Social Determinants of Health including: Problems related to primary support group, Unemployment and Other Social Determinant of Health Discharge Plan Discharge Clinical Impression: Poisoning by opiate or related narcotic, Opioid use disorder Patient Disposition: Home, Self-Care Instructions: Opioid Use Disorder (ED) Additional Instructions: Opiate use disorder You were seen in our Emergency Department today for treatment of opiate use disorder. You may have been dosed with medication for opiate use disorder (MOUD) in the form of suboxone or methadone. You may experience feeling some withdrawal symptoms and this is normal. The? dose in the Emergency Department is a starting dose and meant to be titrated up once you follow up with a clinic. Please do not feel discouraged, it is a process. The nurse has reviewed with you where to follow up and what information to bring with you, to continue treatment. You also may have been given naloxone (narcan) to take home with you. This medication is used to potentially treat opiate overdose. If you decide you want to stop or cut down on how much you?re using, you can call or walk into our outpatient Addiction Treatment office: [facility] (M-F 9am-5p) [address], [address] [phone] You may have been provided with safer injection?items, please take time to take care of YOU and your health. Use new supplies whenever possible to lessen the chances of infections and other illnesses.? ?If you need more supplies, please go [facility] [facility] [employer],? [address] [place], [place] you can call or text to coordinate delivery of safer supplies. You were also provided a list of several treatment providers in the area.? If you experience any worsening symptoms you cannot control please return to the ED or call 911. Please follow up at your next appointment. Things to look out for are fevers, chest pain, shortness of breath, severe pain, dizziness, fainting or any other concerns. You can always return to the emergency department. We are here to help you and we never close. Prescriptions: No Action methadone [Methadone Intensol] 10 mg/mL Concentrate 70 mg PO DAILY naloxone [Narcan] 4 mg/actuation spray,non-aerosol 4 mg intranasal Q2M PRN (Reason: opioid overdose) Qty: 2 6RF Rx Instructions: spray 1 dose into ONE nostril; alternate nostrils w each dose until help arrives Print Language: [place]
--- NOTE | 2025-02-03 21:25 | PC.NURSE ---
Late entry- pt slightly hypotensive, MD Moore made aware. No new orders at this time.
--- NOTE | 2025-02-03 21:44 | PC.NURSE ---
Pt is resting quietly at this time, equal chest rise and fall. On 2 L O2 for desats to 88%. Pt is maintaining her airway at this time
--- NOTE | 2025-02-03 22:48 | PC.NURSE ---
Pt continues to be mildly hypotensive, MD Moore made aware. No new orders at this time.
[2025-02-04] VITALS (10 sets, daily range): BP systolic 82–102; BP diastolic 41–61; PULSE 51–72; RESP 15–20; TEMP 36.4–36.7; O2SAT 97–100
[2025-02-04] MEDS: Lactated Ringers 1,000 ML 999 ML IV (02:39)
--- NOTE | 2025-02-04 02:49 | PC.NURSE ---
Pt ambulated to bathroom with standby assist. Pt given pudding and jello per request. Pt does not remember being brought into the ED or the events after she used heroin. Vaguely remembers her brother calling the ambulance but does not remember arriving here and getting changed.
--- NOTE | 2025-02-04 02:54 | PC.NURSE ---
Pt now fully awake, able to make needs known. Asking for a sandwich and more snacks.
--- NOTE | 2025-02-04 04:04 | PC.NURSE ---
20 g IV in left hand
[2025-02-04] MEDS: Naloxone HCl Nasal TAKE HOME 4 MG SPRAY 8 MG NOSTRILALT (06:46)
[2025-02-04] MEDS: methADONE HCl 20 MG/2 ML ORAL.CONC 30 MG PO (06:46)
--- NOTE | 2025-02-04 07:29 | PC.NURSE ---
Pt's mother at bedside to drive patient home. Discharge instructions including last dose letter and take home narcan given to pt. All belongings returned to pt. Pt ambulated out of department with mother.
== END 2025-02-04 07:31 | disposition home or self-care (01) ==
PROVIDERS: Emergency Provider Emergency Medicine
DX: T40.1X1A Poisoning by heroin, accidental (unintentional), initial encounter (principal); R41.82 Altered mental status, unspecified; Y92.89 Other specified places as the place of occurrence of the external cause
CPT/HCPCS: 96360; 96361; 99285; J7120